=== PATIENT | female | born 1960 | race Caucasian/White ===

== ENCOUNTER 2017-09-03 11:44 | Emergency (ER) | payer MEDICAID ==
[~2017-09-03] VITALS: Ht 165.1 cm; Wt 136.5 kg
[~2017-09-03 11:44] MED LIST: ELID1CRE TOPICAL; LORA2TAB7 PO; MELO15TA20 PO; TRIA0.5O TOPICAL
[2017-09-03 11:53] VITALS: BP 200/88; PULSE 63; RESP 12; TEMP 98.7; O2SAT 99
--- NOTE | 2017-09-03 12:52 | PD ---
HPI Chief Complaint: Injury Time Seen by Provider: 12:09 Travel History International Travel<30 days: No Contact w/Intl Traveler<30days: No Traveled to known affect area: No History of Present Illness HPI 56-year-old female presents to the emergency room for evaluation of median and ulnar nerve deficits that have been worsening over the past 2 weeks, especially over the past week. Symptoms include weakness in the hand, paresthesias in the ulnar distribution, swelling, and pain over various parts of the forearm. She denies any trauma or injury to the right arm. She has pain in various spots of the forearm that is worse when she touches it. Patient has been seeing her chiropractor for this condition and being treated for ulnar nerve compression at the elbow with surrounding exercises. States it doesn't seem to be helping. Patient went to her primary care physician this morning, Dr. Crain, who recommended she come to the emergency room for a test to measure the pressure in her arm. She is status post right mastectomy 2 years ago. PFSH Past Medical History Cancer: Yes (BREAST) Diminished Hearing: No Hypertension: Yes ?: Not Menopausal: Yes : 4 Para: 4 Past Surgical History Tonsillectomy: Yes Other Surgery: Yes (RIGHT MASTECTOMY) Social History Alcohol Use: Yes Tobacco Use: No Substance Use: No Allergies-Medications (Allergen,Severity, Reaction): Coded Allergies: ketoconazole (Unverified Adverse Reaction, Intermediate, 09/03/17) Uncoded Allergies: UNKNOWN NARCOTIC (Allergy, Intermediate, Rash, 08/10/15) Reported Meds & Prescriptions Reported Meds & Active Scripts Active No Active Prescriptions or Reported Medications Review of Systems Except as stated in HPI: all other systems reviewed are Neg Physical Exam Narrative GENERAL: Well-nourished, morbidly obese female in no acute distress. Afebrile. Ambulatory. SKIN: Focused skin assessment warm/dry. No erythema or ecchymosis. Patient has chronic scaling of bilateral hands. HEAD: Normocephalic. EYES: No scleral icterus. No injection or drainage. NECK: Supple, trachea midline. No JVD or lymphadenopathy. CARDIOVASCULAR: Regular rate and rhythm without murmurs, gallops, or rubs. RESPIRATORY: Breath sounds equal bilaterally. No accessory muscle use. MUSCULOSKELETAL: No cyanosis. Mild edema of the right upper extremity. 2+ radial pulse. Radial nerve intact. There is weakness in the median and ulnar distribution; patient has difficulty bringing her thumb and finger together so they're touching and difficulty abducting her fingers. Patient also has decreased sensation in the ulnar distribution. Compartments soft. There is slight coolness in the ulnar distribution. Pressure in the anterior compartment of the right forearm is about 8 mmHg. Pressure in the posterior compartment of the forearm is 2 mmHg. Data Data Last Documented VS Vital Signs Date Time Temp Pulse Resp B/P (MAP) Pulse Ox O2 Delivery O2 Flow Rate FiO2 09/03/17 11:53 98.7 63 12 200/88 (125) 99 Orders Orders Us Arm Venous Doppler (09/03/17 ) Lidocai-Epi 1%-1:100,000 Inj (Xylocaine- (09/03/17 13:15) Splint Or Brace Apply/Monitor (09/03/17 15:46) Ed Discharge Order (09/03/17 15:47) MDM Medical Decision Making Medical Screen Exam Complete: Yes Emergency Medical Condition: Yes Medical Record Reviewed: Yes Differential Diagnosis Compartment syndrome, lymphedema, DVT, nerve palsy Narrative Course 56-year-old female presents to the emergency room for evaluation of nonspecific right upper extremity pain, ulnar nerve paresthesias, right upper extremity edema, and right hand weakness for the past 2 weeks that has especially worsened over the past week. Patient denies any trauma or injury to the arm. She has history of right breast mastectomy 2 years ago. Patient was referred here by her primary care physician with concerns for compartment syndrome given her symptoms. Physical exam is reassuring. No cyanosis. Mild edema of the right upper extremity. 2+ radial pulse. Radial nerve intact. There is weakness in the median and ulnar distribution; patient has difficulty bringing her thumb and finger together so they're touching and difficulty abducting her fingers. Patient also has decreased sensation in the ulnar distribution. Compartments soft. There is slight coolness in the ulnar distribution. Pressure in the anterior compartment of the right forearm is about 8 mmHg. Pressure in the posterior compartment of the forearm is 2 mmHg. there is no clinical concern for compartment syndrome. Ultrasound is negative for DVT. No emergent indications for admission or consultation at this time. 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 She will need outpatient follow-up with hand surgeon or MRI of her neck or arm. I spoke to patient's PCP , Dr. Crain, who agrees with plan. Patient will follow-up next week or return sooner for worsening symptoms. Diagnosis Primary Impression: Ulnar nerve abnormality Qualified Codes: G56.21 - Lesion of ulnar nerve, right upper limb Referrals: Eduin Crain MD R2 Additional Instructions: Rest and drink plenty of fluids. Follow-up with a primary care physician. Return to the emergency room for worsening symptoms. Scripts No Active Prescriptions or Reported Meds Disposition: 01 DISCHARGE HOME Condition: Stable Ludy Turcios Sep 03, 2017 12:51
[2017-09-03] MEDS ORDERED: LIDOCAINE 1%/EPINEPHrine 1:100,000 SOLN 20 ML VIAL INFIL ONE (13:15)
--- NOTE | 2017-09-03 14:17 | RADRPT ---
EXAM DATE/TIME: 09/03/2017 13:24 [facility] COMPARISON: No previous studies available for comparison. INDICATIONS : Right arm swelling. MEDICAL HISTORY : Hypertension. Breast cancer. SURGICAL HISTORY : Tonsillectomy. Back surgery. Right mastectomy. ENCOUNTER: Initial ACUITY: 4 - 6 days PAIN SCORE: 4/10 LOCATION: Right arm. FINDINGS: There is spontaneous flow documented in the brachial, basilic, cephalic, axillary, and subclavian vei ns. The vessels are compressible and augmentation response is documented. No filling defects are se en. The flow is phasic with respiration. Direction of flow in the jugular vein is caudal. CONCLUSION: Negative for deep venous thrombosis. Jovan Kasper MD FACR on September 03, 2017 at 14:15 Board Certified Radiologist. This report was verified electronically.
[2017-09-03 16:26] VITALS: BP 166/75
[2017-09-04] MEDS ORDERED: TRIA0.5O TOPICAL (09:42)
[2017-09-04] MEDS ORDERED: ELID1CRE TOPICAL (09:42)
== END 2017-09-03 16:27 | disposition home or self-care (01) ==
LOC: NEPD 11:44
DX: G56.21 Lesion of ulnar nerve, right upper limb (principal); M79.89 Other specified soft tissue disorders; E66.01 Morbid (severe) obesity due to excess calories; I10 Essential (primary) hypertension; Z88.8 Allergy status to other drugs, medicaments and biological substances
CPT/HCPCS: 93971; 99284; L3908

== ENCOUNTER 2018-08-09 17:14 | Inpatient (IN) ==
[2018-08-09] MEDS ORDERED: Sod Chloride 0.9% Inj 1,000 ML IV.CONT SCH (18:15)
--- NOTE | 2018-08-09 18:26 | ED ---
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 Patient was brought to emergency room and triaged for dizziness. I came to the room to see patient at 6 PM, patient is unable to talk, has expressive aphasia. Following commands, moving both legs and left arm, no obvious weakness in his extremities except chronic weakness in his right arm. No facial droop noted. Systolic blood pressure is 178. Case discussed with neurologist, TPA status is unclear due to possible brain tumor metastasis. MD complaint: Reports dizziness Related Data Previous Rx's Medication Instructions Recorded dexamethasone [Decadron] 2 mg/m2 PO Q8H #21 tab 08/12/18 levetiracetam 500 mg PO BID #28 tab 08/12/18 Allergies Allergy/AdvReac Type Severity Reaction Status Date / Time ketoconazole AdvReac Intermediate Verified 10/25/17 10:58 UNKNOWN NARCOTIC Allergy Intermediate Rash Uncoded 08/10/15 13:02 Review of Systems ROS: all other systems reviewed are negative Neurologic Comments: Expressive aphasia PMFSH Family History Family History Other Family history unknown Social History Social History Substance History: Active Abuse Smoking Status: Former smoker How Often Do You Have a Drink Containing Alcohol: Monthly or less Substance Abuse Detail Marijuana: Substance Use Status: Active Immunization History Tetanus Immunization: Unsure Exam Narrative Exam Narrative: GENERAL: 57-year-old female with expressive aphasia SKIN: Focused skin assessment warm/dry. HEAD: Atraumatic. Normocephalic. EYES: Pupils equal and round. No scleral icterus. No injection or drainage. ENT: No nasal bleeding or discharge. Mucous membranes pink and moist. NECK: Trachea midline. No JVD. CARDIOVASCULAR: Regular rate and rhythm. No murmur appreciated. RESPIRATORY: No accessory muscle use. Clear to auscultation. Breath sounds equal bilaterally. GASTROINTESTINAL: Abdomen soft, non-tender, nondistended. Hepatic and splenic margins not palpable. MUSCULOSKELETAL: No obvious deformities. No clubbing. No cyanosis. No edema. NEUROLOGICAL: Awake and alert. Chronic right arm weakness due to brachial cancer, no weakness in left arm, bilateral legs. Patient has expressive aphasia. PSYCHIATRIC: Appropriate mood and affect; insight and judgment normal. Procedures Intubation Time Out Performed: Yes Sedative: etomidate Mg Given: 30 Paralytic: succinylcholine Mg Given: 300 Laryngoscope: Osman ET Tube Size: 7.5 ET Tube Uncuffed: Yes Tube Secured Depth (cm): 24 Tube Placement Confirmation: visualized tube passing through cords and equal breath sounds bilaterally Patient Tolerated Procedure: well Intubation Complications: none Course Initial Documented Vital Signs Pulse Rate 85 08/09/18 17:27 Respiratory Rate 18 08/09/18 17:27 Blood Pressure 172/77 H 08/09/18 17:27 Pulse Oximetry 95 08/09/18 17:27 Last Documented Vital Signs Temperature 98 F 08/12/18 16:00 Pulse Rate 73 08/12/18 17:29 Respiratory Rate 16 08/12/18 17:29 Blood Pressure 151/81 H 08/12/18 16:00 Pulse Oximetry 99 08/12/18 16:00 Critical Care Time Critical Care Time: Yes Total Critical Care Time: 60 Attestation: Aggregate critical care time was 60 minutes. Time to perform other separately billable procedures was not included in the critical care time. My time did not include minutes spent treating any other patients simultaneously or on activities that did not directly contribute to the patient's treatment. The services I provided to this patient were to treat and/or prevent clinically significant deterioration that could result in: Respiratory failure, intubation, ventilator management I provided critical care services requiring my management, as noted below: Chart data review, documentation time, medication orders and management, vital sign assessments/reviewing monitor data, ordering and reviewing lab tests, ordering and interpreting/reviewing x-rays and diagnostic studies, care of the patient and discussion of the patient with the admitting physicians. Sign Out Sign Out Data: Patient Sign Out occurred on 08/09/18 at 19:44. Patient's care was discussed, and care was transferred from Joshua Lynch DO to [place] Gaytan. Sign Out Comment: Patient is 57-year-old female with history of brachial plexus tumor presented to emergency room with expressive aphasia, was diagnosed with brain tumor as per CAT scan. Patient had seizure episode in the emergency room , treated with Ativan and Keppra. Patient is postictal. Blood work results are pending, Case endorsed to oncoming physician for further evaluation and treatment. Last updated by Joshua Lynch DO at 08/09/18 19:22 Post-Handoff Eval: Patient was signed out to me by the previous ER physician. My understanding is that patient was last seen normal by her family members at 3:30 PM today. Then she started complaining of sudden onset dizziness and speech problems. She was having trouble speaking most of the words. When she got to the emergency room where she was brought in by her significant other and her son she was able to communicate a few words but definitely not her baseline. Based on her symptoms a stroke alert was called but patient started having generalized tonic-clonic seizures soon after arrival. She received Ativan which stopped the seizures. She has been extremely lethargic since then with GCS less than 8. CT scan of the brain was read by the radiologist as a 2.5 cm mass with surrounding vasogenic edema. Given patient's extremely lethargic state and at risk for aspiration due to poor control of her airway I decided to intubate the patient. I discussed with her significant other and her son regarding this. I also updated them about the CAT scan results. Intubation was performed by me and was successful. Please refer to my procedure note. I looked at the blood test results so far and the look to be within normal limits. I discussed the case with Dr. Izquierdo from neurosurgery who recommended an MRI of the brain with and without contrast. Patient is also getting a gram of Keppra loading. I discussed the case with Dr. Ashraf from intensive care unit who will take the patient. Medical Decision Making ALEYDA Attestation ALEYDA supervised visit: Yes MDM Narrative Medical decision making narrative: Patient is 57-year-old female with new expressive aphasia, code stroke called, blood work results CAT scan results are pending. Patient has new brain tumor, not a candidate for TPA treatment. Patient has seizure episode in the emergency room, Ativan given she is postictal. Case will be endorsed to oncoming physician for further evaluation and treatment. Medical Screen Exam Complete: Yes Emergency Medical Condition: Yes Lab Data Result diagrams: 08/10/18 05:50 08/10/18 05:50 Lab Results 08/09/18 08/09/18 08/09/18 Range/Units 18:12 18:12 18:12 WBC 7.1 (4.0-11.0) th/mm3 RBC 4.62 (4.00-5.30) mil/mm3 Hgb 14.5 (11.6-15.3) gm/dL POC Hgb (Calc) 17.0 H (11.6-15.3) g/dL Hct 42.9 (35.0-46.0) % POC Hct 50.0 H (35-46.0) % MCV 92.8 (80.0-100.0) fL MCH 31.4 (27.0-34.0) pg MCHC 33.9 (32.0-36.0) % RDW 13.7 (11.6-17.2) % Plt Count 157 (150-450) th/mm3 MPV 9.4 (7.0-11.0) fL Neut % (Auto) 65.1 (16.0-70.0) % Lymph % (Auto) 27.0 (9.0-44.0) % Mclean % (Auto) 6.8 (0.0-8.0) % Eos % (Auto) 0.8 (0.0-4.0) % Baso % (Auto) 0.3 (0.0-2.0) % Neut # (Auto) 4.6 (1.8-7.7) th/mm3 Lymph # (Auto) 1.9 (1.0-4.8) th/mm3 Mclean # (Auto) 0.5 (0.0-0.9) th/mm3 Eos # (Auto) 0.1 (0.0-0.4) th/mm3 Baso # (Auto) 0.0 (0.0-0.2) th/mm3 WBC Differential . Differential Comment Auto diff final ESR (0-30) mm/hr PT 10.4 (9.8-11.6) sec INR 1.0 Ratio APTT 25.9 (23.4-31.7) sec Fibrinogen 292 (227-377) mg/dL Puncture Site Patient Temperature O2 Saturation (90-100) % ABG pH (7.380-7.420) ABG pCO2 (38-42) mmHg ABG pO2 (61-120) mmHg ABG HCO3 (22-26) mmol/L ABG O2 Content (12.0-20.0) Vol % ABG Base Excess (-2-2) mmol/L ABG Methemoglobin (0-2) % Tashi Test Hemoglobin (12.0-16.0) G/DL Carboxyhemoglobin (0-4) % O2 Delivery Device Vent Setting Inspired O2 % Critical Value POC Sodium 143 (137-144) mmol/L Sodium (136-145) meq/L POC Potassium 3.3 L (3.6-5.0) mmol/L Potassium (3.5-5.1) meq/L POC Chloride 99 L (102-111) mmol/L Chloride (98-107) meq/L Carbon Dioxide (21.0-32.0) meq/L Anion Gap (5-15) meq/L POC BUN 11 (5-21) mg/dL BUN (7-18) mg/dL Creatinine (0.50-1.00) mg/dL POC Creatinine 0.9 (0.6-1.3) mg/dL Estimated GFR (>89) mL/min POC Glucose 136 H (68-110) mg/dL Random Glucose (74-106) mg/dL Lactic Acid (0.4-2.0) mmol/L Calcium (8.5-10.1) mg/dL Phosphorus (2.5-4.9) mg/dL Magnesium (1.5-2.5) mg/dL Total Bilirubin (0.2-1.0) mg/dL AST (15-37) U/L ALT (10-53) U/L Alkaline Phosphatase (45-117) U/L Total Creatine Kinase 120 (26-192) U/L CK-MB (CK-2) (0.5-3.6) ng/mL CK-MB (CK-2) % (0.0-4.0) % Troponin I Less than 0.02 L (0.02-0.05) ng/mL C-Reactive Protein (0.00-0.30) mg/dL Total Protein (6.4-8.2) g/dL Albumin (3.4-5.0) g/dL Beta HCG, Quant 4 (0-5) mIU/mL Nasal Screen MRSA (PCR) Blood Type Antibody Screen 08/09/18 08/09/18 08/09/18 Range/Units 18:12 18:12 18:31 WBC (4.0-11.0) th/mm3 RBC (4.00-5.30) mil/mm3 Hgb (11.6-15.3) gm/dL POC Hgb (Calc) (11.6-15.3) g/dL Hct (35.0-46.0) % POC Hct (35-46.0) % MCV (80.0-100.0) fL MCH (27.0-34.0) pg MCHC (32.0-36.0) % RDW (11.6-17.2) % Plt Count (150-450) th/mm3 MPV (7.0-11.0) fL Neut % (Auto) (16.0-70.0) % Lymph % (Auto) (9.0-44.0) % Mclean % (Auto) (0.0-8.0) % Eos % (Auto) (0.0-4.0) % Baso % (Auto) (0.0-2.0) % Neut # (Auto) (1.8-7.7) th/mm3 Lymph # (Auto) (1.0-4.8) th/mm3 Mclean # (Auto) (0.0-0.9) th/mm3 Eos # (Auto) (0.0-0.4) th/mm3 Baso # (Auto) (0.0-0.2) th/mm3 WBC Differential Differential Comment ESR 12 (0-30) mm/hr PT (9.8-11.6) sec INR Ratio APTT (23.4-31.7) sec Fibrinogen (227-377) mg/dL Puncture Site Patient Temperature O2 Saturation (90-100) % ABG pH (7.380-7.420) ABG pCO2 (38-42) mmHg ABG pO2 (61-120) mmHg ABG HCO3 (22-26) mmol/L ABG O2 Content (12.0-20.0) Vol % ABG Base Excess (-2-2) mmol/L ABG Methemoglobin (0-2) % Tashi Test Hemoglobin (12.0-16.0) G/DL Carboxyhemoglobin (0-4) % O2 Delivery Device Vent Setting Inspired O2 % Critical Value POC Sodium (137-144) mmol/L Sodium (136-145) meq/L POC Potassium (3.6-5.0) mmol/L Potassium (3.5-5.1) meq/L POC Chloride (102-111) mmol/L Chloride (98-107) meq/L Carbon Dioxide (21.0-32.0) meq/L Anion Gap (5-15) meq/L POC BUN (5-21) mg/dL BUN (7-18) mg/dL Creatinine (0.50-1.00) mg/dL POC Creatinine (0.6-1.3) mg/dL Estimated GFR (>89) mL/min POC Glucose (68-110) mg/dL Random Glucose (74-106) mg/dL Lactic Acid (0.4-2.0) mmol/L Calcium (8.5-10.1) mg/dL Phosphorus (2.5-4.9) mg/dL Magnesium (1.5-2.5) mg/dL Total Bilirubin (0.2-1.0) mg/dL AST (15-37) U/L ALT (10-53) U/L Alkaline Phosphatase (45-117) U/L Total Creatine Kinase (26-192) U/L CK-MB (CK-2) (0.5-3.6) ng/mL CK-MB (CK-2) % (0.0-4.0) % Troponin I (0.02-0.05) ng/mL C-Reactive Protein Less than 0.29 (0.00-0.30) mg/dL Total Protein (6.4-8.2) g/dL Albumin (3.4-5.0) g/dL Beta HCG, Quant (0-5) mIU/mL Nasal Screen MRSA (PCR) Blood Type O Negative Antibody Screen Negative 08/09/18 08/10/18 08/10/18 Range/Units 20:14 00:10 01:21 WBC (4.0-11.0) th/mm3 RBC (4.00-5.30) mil/mm3 Hgb (11.6-15.3) gm/dL POC Hgb (Calc) (11.6-15.3) g/dL Hct (35.0-46.0) % POC Hct (35-46.0) % MCV (80.0-100.0) fL MCH (27.0-34.0) pg MCHC (32.0-36.0) % RDW (11.6-17.2) % Plt Count (150-450) th/mm3 MPV (7.0-11.0) fL Neut % (Auto) (16.0-70.0) % Lymph % (Auto) (9.0-44.0) % Mclean % (Auto) (0.0-8.0) % Eos % (Auto) (0.0-4.0) % Baso % (Auto) (0.0-2.0) % Neut # (Auto) (1.8-7.7) th/mm3 Lymph # (Auto) (1.0-4.8) th/mm3 Mclean # (Auto) (0.0-0.9) th/mm3 Eos # (Auto) (0.0-0.4) th/mm3 Baso # (Auto) (0.0-0.2) th/mm3 WBC Differential Differential Comment ESR (0-30) mm/hr PT (9.8-11.6) sec INR Ratio APTT (23.4-31.7) sec Fibrinogen (227-377) mg/dL Puncture Site Right radial Patient Temperature 98.6 O2 Saturation 98 (90-100) % ABG pH 7.30 L (7.380-7.420) ABG pCO2 53 H* (38-42) mmHg ABG pO2 201 H (61-120) mmHg ABG HCO3 26 (22-26) mmol/L ABG O2 Content 20.3 H (12.0-20.0) Vol % ABG Base Excess -0.1 (-2-2) mmol/L ABG Methemoglobin 0.7 (0-2) % Tashi Test Present Hemoglobin 14.5 (12.0-16.0) G/DL Carboxyhemoglobin 0.8 (0-4) % O2 Delivery Device Ventilator Vent Setting Prvc / ac / Inspired O2 100 % Critical Value Yes POC Sodium (137-144) mmol/L Sodium (136-145) meq/L POC Potassium (3.6-5.0) mmol/L Potassium (3.5-5.1) meq/L POC Chloride (102-111) mmol/L Chloride (98-107) meq/L Carbon Dioxide (21.0-32.0) meq/L Anion Gap (5-15) meq/L POC BUN (5-21) mg/dL BUN (7-18) mg/dL Creatinine (0.50-1.00) mg/dL POC Creatinine (0.6-1.3) mg/dL Estimated GFR (>89) mL/min POC Glucose 95 (68-110) mg/dL Random Glucose (74-106) mg/dL Lactic Acid (0.4-2.0) mmol/L Calcium (8.5-10.1) mg/dL Phosphorus (2.5-4.9) mg/dL Magnesium (1.5-2.5) mg/dL Total Bilirubin (0.2-1.0) mg/dL AST (15-37) U/L ALT (10-53) U/L Alkaline Phosphatase (45-117) U/L Total Creatine Kinase (26-192) U/L CK-MB (CK-2) (0.5-3.6) ng/mL CK-MB (CK-2) % (0.0-4.0) % Troponin I (0.02-0.05) ng/mL C-Reactive Protein (0.00-0.30) mg/dL Total Protein (6.4-8.2) g/dL Albumin (3.4-5.0) g/dL Beta HCG, Quant (0-5) mIU/mL Nasal Screen MRSA (PCR) Cancelled Blood Type Antibody Screen 08/10/18 08/10/18 08/10/18 Range/Units 03:30 04:15 05:50 WBC 9.9 (4.0-11.0) th/mm3 RBC 4.35 (4.00-5.30) mil/mm3 Hgb 13.9 (11.6-15.3) gm/dL POC Hgb (Calc) (11.6-15.3) g/dL Hct 40.6 (35.0-46.0) % POC Hct (35-46.0) % MCV 93.4 (80.0-100.0) fL MCH 31.9 (27.0-34.0) pg MCHC 34.2 (32.0-36.0) % RDW 13.8 (11.6-17.2) % Plt Count 156 (150-450) th/mm3 MPV 8.6 (7.0-11.0) fL Neut % (Auto) 78.6 H (16.0-70.0) % Lymph % (Auto) 14.1 (9.0-44.0) % Mclean % (Auto) 6.7 (0.0-8.0) % Eos % (Auto) 0.1 (0.0-4.0) % Baso % (Auto) 0.5 (0.0-2.0) % Neut # (Auto) 7.8 H (1.8-7.7) th/mm3 Lymph # (Auto) 1.4 (1.0-4.8) th/mm3 Mclean # (Auto) 0.7 (0.0-0.9) th/mm3 Eos # (Auto) 0.0 (0.0-0.4) th/mm3 Baso # (Auto) 0.1 (0.0-0.2) th/mm3 WBC Differential . Differential Comment Auto diff final ESR (0-30) mm/hr PT (9.8-11.6) sec INR Ratio APTT (23.4-31.7) sec Fibrinogen (227-377) mg/dL Puncture Site Right radial Patient Temperature 98.6 O2 Saturation 97 (90-100) % ABG pH 7.49 H (7.380-7.420) ABG pCO2 37 L (38-42) mmHg ABG pO2 172 H (61-120) mmHg ABG HCO3 28 H (22-26) mmol/L ABG O2 Content 19.7 (12.0-20.0) Vol % ABG Base Excess 4.6 H (-2-2) mmol/L ABG Methemoglobin 1.1 (0-2) % Tashi Test Present Hemoglobin 14.2 (12.0-16.0) G/DL Carboxyhemoglobin 1.1 (0-4) % O2 Delivery Device Ventilator Vent Setting [id number] Inspired O2 60 % Critical Value No POC Sodium (137-144) mmol/L Sodium (136-145) meq/L POC Potassium (3.6-5.0) mmol/L Potassium (3.5-5.1) meq/L POC Chloride (102-111) mmol/L Chloride (98-107) meq/L Carbon Dioxide (21.0-32.0) meq/L Anion Gap (5-15) meq/L POC BUN (5-21) mg/dL BUN (7-18) mg/dL Creatinine (0.50-1.00) mg/dL POC Creatinine (0.6-1.3) mg/dL Estimated GFR (>89) mL/min POC Glucose (68-110) mg/dL Random Glucose (74-106) mg/dL Lactic Acid (0.4-2.0) mmol/L Calcium (8.5-10.1) mg/dL Phosphorus (2.5-4.9) mg/dL Magnesium (1.5-2.5) mg/dL Total Bilirubin (0.2-1.0) mg/dL AST (15-37) U/L ALT (10-53) U/L Alkaline Phosphatase (45-117) U/L Total Creatine Kinase (26-192) U/L CK-MB (CK-2) (0.5-3.6) ng/mL CK-MB (CK-2) % (0.0-4.0) % Troponin I (0.02-0.05) ng/mL C-Reactive Protein (0.00-0.30) mg/dL Total Protein (6.4-8.2) g/dL Albumin (3.4-5.0) g/dL Beta HCG, Quant (0-5) mIU/mL Nasal Screen MRSA (PCR) Not detected Blood Type Antibody Screen 08/10/18 08/10/18 08/10/18 Range/Units 05:50 05:50 05:50 WBC (4.0-11.0) th/mm3 RBC (4.00-5.30) mil/mm3 Hgb (11.6-15.3) gm/dL POC Hgb (Calc) (11.6-15.3) g/dL Hct (35.0-46.0) % POC Hct (35-46.0) % MCV (80.0-100.0) fL MCH (27.0-34.0) pg MCHC (32.0-36.0) % RDW (11.6-17.2) % Plt Count (150-450) th/mm3 MPV (7.0-11.0) fL Neut % (Auto) (16.0-70.0) % Lymph % (Auto) (9.0-44.0) % Mclean % (Auto) (0.0-8.0) % Eos % (Auto) (0.0-4.0) % Baso % (Auto) (0.0-2.0) % Neut # (Auto) (1.8-7.7) th/mm3 Lymph # (Auto) (1.0-4.8) th/mm3 Mclean # (Auto) (0.0-0.9) th/mm3 Eos # (Auto) (0.0-0.4) th/mm3 Baso # (Auto) (0.0-0.2) th/mm3 WBC Differential Differential Comment ESR (0-30) mm/hr PT 10.7 (9.8-11.6) sec INR 1.1 Ratio APTT 25.4 (23.4-31.7) sec Fibrinogen (227-377) mg/dL Puncture Site Patient Temperature O2 Saturation (90-100) % ABG pH (7.380-7.420) ABG pCO2 (38-42) mmHg ABG pO2 (61-120) mmHg ABG HCO3 (22-26) mmol/L ABG O2 Content (12.0-20.0) Vol % ABG Base Excess (-2-2) mmol/L ABG Methemoglobin (0-2) % Tashi Test Hemoglobin (12.0-16.0) G/DL Carboxyhemoglobin (0-4) % O2 Delivery Device Vent Setting Inspired O2 % Critical Value POC Sodium (137-144) mmol/L Sodium 139 (136-145) meq/L POC Potassium (3.6-5.0) mmol/L Potassium 4.1 (3.5-5.1) meq/L POC Chloride (102-111) mmol/L Chloride 103 (98-107) meq/L Carbon Dioxide 28.8 (21.0-32.0) meq/L Anion Gap 7 (5-15) meq/L POC BUN (5-21) mg/dL BUN 9 (7-18) mg/dL Creatinine 0.79 (0.50-1.00) mg/dL POC Creatinine (0.6-1.3) mg/dL Estimated GFR 74 L (>89) mL/min POC Glucose (68-110) mg/dL Random Glucose 126 H (74-106) mg/dL Lactic Acid 2.5 H (0.4-2.0) mmol/L Calcium 8.7 (8.5-10.1) mg/dL Phosphorus 2.0 L (2.5-4.9) mg/dL Magnesium 1.7 (1.5-2.5) mg/dL Total Bilirubin 0.4 (0.2-1.0) mg/dL AST 57 H (15-37) U/L ALT 42 (10-53) U/L Alkaline Phosphatase 74 (45-117) U/L Total Creatine Kinase 876 H (26-192) U/L CK-MB (CK-2) 5.5 H (0.5-3.6) ng/mL CK-MB (CK-2) % 0.6 (0.0-4.0) % Troponin I (0.02-0.05) ng/mL C-Reactive Protein (0.00-0.30) mg/dL Total Protein 7.3 (6.4-8.2) g/dL Albumin 3.5 (3.4-5.0) g/dL Beta HCG, Quant (0-5) mIU/mL Nasal Screen MRSA (PCR) Blood Type Antibody Screen 08/10/18 08/11/18 08/11/18 Range/Units 13:09 00:39 05:46 WBC (4.0-11.0) th/mm3 RBC (4.00-5.30) mil/mm3 Hgb (11.6-15.3) gm/dL POC Hgb (Calc) (11.6-15.3) g/dL Hct (35.0-46.0) % POC Hct (35-46.0) % MCV (80.0-100.0) fL MCH (27.0-34.0) pg MCHC (32.0-36.0) % RDW (11.6-17.2) % Plt Count (150-450) th/mm3 MPV (7.0-11.0) fL Neut % (Auto) (16.0-70.0) % Lymph % (Auto) (9.0-44.0) % Mclean % (Auto) (0.0-8.0) % Eos % (Auto) (0.0-4.0) % Baso % (Auto) (0.0-2.0) % Neut # (Auto) (1.8-7.7) th/mm3 Lymph # (Auto) (1.0-4.8) th/mm3 Mclean # (Auto) (0.0-0.9) th/mm3 Eos # (Auto) (0.0-0.4) th/mm3 Baso # (Auto) (0.0-0.2) th/mm3 WBC Differential Differential Comment ESR (0-30) mm/hr PT (9.8-11.6) sec INR Ratio APTT (23.4-31.7) sec Fibrinogen (227-377) mg/dL Puncture Site Patient Temperature O2 Saturation (90-100) % ABG pH (7.380-7.420) ABG pCO2 (38-42) mmHg ABG pO2 (61-120) mmHg ABG HCO3 (22-26) mmol/L ABG O2 Content (12.0-20.0) Vol % ABG Base Excess (-2-2) mmol/L ABG Methemoglobin (0-2) % Tashi Test Hemoglobin (12.0-16.0) G/DL Carboxyhemoglobin (0-4) % O2 Delivery Device Vent Setting Inspired O2 % Critical Value POC Sodium (137-144) mmol/L Sodium (136-145) meq/L POC Potassium (3.6-5.0) mmol/L Potassium (3.5-5.1) meq/L POC Chloride (102-111) mmol/L Chloride (98-107) meq/L Carbon Dioxide (21.0-32.0) meq/L Anion Gap (5-15) meq/L POC BUN (5-21) mg/dL BUN (7-18) mg/dL Creatinine (0.50-1.00) mg/dL POC Creatinine (0.6-1.3) mg/dL Estimated GFR (>89) mL/min POC Glucose 111 H 127 H 157 H (68-110) mg/dL Random Glucose (74-106) mg/dL Lactic Acid (0.4-2.0) mmol/L Calcium (8.5-10.1) mg/dL Phosphorus (2.5-4.9) mg/dL Magnesium (1.5-2.5) mg/dL Total Bilirubin (0.2-1.0) mg/dL AST (15-37) U/L ALT (10-53) U/L Alkaline Phosphatase (45-117) U/L Total Creatine Kinase (26-192) U/L CK-MB (CK-2) (0.5-3.6) ng/mL CK-MB (CK-2) % (0.0-4.0) % Troponin I (0.02-0.05) ng/mL C-Reactive Protein (0.00-0.30) mg/dL Total Protein (6.4-8.2) g/dL Albumin (3.4-5.0) g/dL Beta HCG, Quant (0-5) mIU/mL Nasal Screen MRSA (PCR) Blood Type Antibody Screen 08/11/18 08/11/18 08/12/18 Range/Units 11:21 17:18 00:09 WBC (4.0-11.0) th/mm3 RBC (4.00-5.30) mil/mm3 Hgb (11.6-15.3) gm/dL POC Hgb (Calc) (11.6-15.3) g/dL Hct (35.0-46.0) % POC Hct (35-46.0) % MCV (80.0-100.0) fL MCH (27.0-34.0) pg MCHC (32.0-36.0) % RDW (11.6-17.2) % Plt Count (150-450) th/mm3 MPV (7.0-11.0) fL Neut % (Auto) (16.0-70.0) % Lymph % (Auto) (9.0-44.0) % Mclean % (Auto) (0.0-8.0) % Eos % (Auto) (0.0-4.0) % Baso % (Auto) (0.0-2.0) % Neut # (Auto) (1.8-7.7) th/mm3 Lymph # (Auto) (1.0-4.8) th/mm3 Mclean # (Auto) (0.0-0.9) th/mm3 Eos # (Auto) (0.0-0.4) th/mm3 Baso # (Auto) (0.0-0.2) th/mm3 WBC Differential Differential Comment ESR (0-30) mm/hr PT (9.8-11.6) sec INR Ratio APTT (23.4-31.7) sec Fibrinogen (227-377) mg/dL Puncture Site Patient Temperature O2 Saturation (90-100) % ABG pH (7.380-7.420) ABG pCO2 (38-42) mmHg ABG pO2 (61-120) mmHg ABG HCO3 (22-26) mmol/L ABG O2 Content (12.0-20.0) Vol % ABG Base Excess (-2-2) mmol/L ABG Methemoglobin (0-2) % Tashi Test Hemoglobin (12.0-16.0) G/DL Carboxyhemoglobin (0-4) % O2 Delivery Device Vent Setting Inspired O2 % Critical Value POC Sodium (137-144) mmol/L Sodium (136-145) meq/L POC Potassium (3.6-5.0) mmol/L Potassium (3.5-5.1) meq/L POC Chloride (102-111) mmol/L Chloride (98-107) meq/L Carbon Dioxide (21.0-32.0) meq/L Anion Gap (5-15) meq/L POC BUN (5-21) mg/dL BUN (7-18) mg/dL Creatinine (0.50-1.00) mg/dL POC Creatinine (0.6-1.3) mg/dL Estimated GFR (>89) mL/min POC Glucose 192 H 162 H 126 H (68-110) mg/dL Random Glucose (74-106) mg/dL Lactic Acid (0.4-2.0) mmol/L Calcium (8.5-10.1) mg/dL Phosphorus (2.5-4.9) mg/dL Magnesium (1.5-2.5) mg/dL Total Bilirubin (0.2-1.0) mg/dL AST (15-37) U/L ALT (10-53) U/L Alkaline Phosphatase (45-117) U/L Total Creatine Kinase (26-192) U/L CK-MB (CK-2) (0.5-3.6) ng/mL CK-MB (CK-2) % (0.0-4.0) % Troponin I (0.02-0.05) ng/mL C-Reactive Protein (0.00-0.30) mg/dL Total Protein (6.4-8.2) g/dL Albumin (3.4-5.0) g/dL Beta HCG, Quant (0-5) mIU/mL Nasal Screen MRSA (PCR) Blood Type Antibody Screen 08/12/18 08/12/18 08/12/18 Range/Units 05:26 13:14 18:09 WBC (4.0-11.0) th/mm3 RBC (4.00-5.30) mil/mm3 Hgb (11.6-15.3) gm/dL POC Hgb (Calc) (11.6-15.3) g/dL Hct (35.0-46.0) % POC Hct (35-46.0) % MCV (80.0-100.0) fL MCH (27.0-34.0) pg MCHC (32.0-36.0) % RDW (11.6-17.2) % Plt Count (150-450) th/mm3 MPV (7.0-11.0) fL Neut % (Auto) (16.0-70.0) % Lymph % (Auto) (9.0-44.0) % Mclean % (Auto) (0.0-8.0) % Eos % (Auto) (0.0-4.0) % Baso % (Auto) (0.0-2.0) % Neut # (Auto) (1.8-7.7) th/mm3 Lymph # (Auto) (1.0-4.8) th/mm3 Mclean # (Auto) (0.0-0.9) th/mm3 Eos # (Auto) (0.0-0.4) th/mm3 Baso # (Auto) (0.0-0.2) th/mm3 WBC Differential Differential Comment ESR (0-30) mm/hr PT (9.8-11.6) sec INR Ratio APTT (23.4-31.7) sec Fibrinogen (227-377) mg/dL Puncture Site Patient Temperature O2 Saturation (90-100) % ABG pH (7.380-7.420) ABG pCO2 (38-42) mmHg ABG pO2 (61-120) mmHg ABG HCO3 (22-26) mmol/L ABG O2 Content (12.0-20.0) Vol % ABG Base Excess (-2-2) mmol/L ABG Methemoglobin (0-2) % Tashi Test Hemoglobin (12.0-16.0) G/DL Carboxyhemoglobin (0-4) % O2 Delivery Device Vent Setting Inspired O2 % Critical Value POC Sodium (137-144) mmol/L Sodium (136-145) meq/L POC Potassium (3.6-5.0) mmol/L Potassium (3.5-5.1) meq/L POC Chloride (102-111) mmol/L Chloride (98-107) meq/L Carbon Dioxide (21.0-32.0) meq/L Anion Gap (5-15) meq/L POC BUN (5-21) mg/dL BUN (7-18) mg/dL Creatinine (0.50-1.00) mg/dL POC Creatinine (0.6-1.3) mg/dL Estimated GFR (>89) mL/min POC Glucose 135 H 140 H 185 H (68-110) mg/dL Random Glucose (74-106) mg/dL Lactic Acid (0.4-2.0) mmol/L Calcium (8.5-10.1) mg/dL Phosphorus (2.5-4.9) mg/dL Magnesium (1.5-2.5) mg/dL Total Bilirubin (0.2-1.0) mg/dL AST (15-37) U/L ALT (10-53) U/L Alkaline Phosphatase (45-117) U/L Total Creatine Kinase (26-192) U/L CK-MB (CK-2) (0.5-3.6) ng/mL CK-MB (CK-2) % (0.0-4.0) % Troponin I (0.02-0.05) ng/mL C-Reactive Protein (0.00-0.30) mg/dL Total Protein (6.4-8.2) g/dL Albumin (3.4-5.0) g/dL Beta HCG, Quant (0-5) mIU/mL Nasal Screen MRSA (PCR) Blood Type Antibody Screen Imaging Data Radiologist's impression: Head CT 08/09/18 18:04 CONCLUSION: 1. 2.4 cm mass in left parietal lobe with surrounding vasogenic edema. MRI brain with and without contrast is recommended. Report was called by [ Dr. Story to Dr. Lynch at 6:40 PM] Chest X-Ray 08/09/18 18:05 CONCLUSION: Basilar atelectasis. Cardiomegaly. Surgical clips right axillary region. Head CTA 08/09/18 18:05 CONCLUSION: 1. Negative CTA Head. Report was called by [ Dr Story to Dr Samayoa at 646pm] Neck CTA 08/09/18 18:05 CONCLUSION: 1. Negative CTA Carotid. Chest X-Ray 08/09/18 19:27 CONCLUSION: Good placement of the ET tube. Cardiomegaly. Diffuse increased interstitial markings likely related to diffuse processes such as edema. Further increased density at the left base representing either alveolar consolidation, atelectasis and/or left effusion. Abdomen/Pelvis CT 08/09/18 19:36 CONCLUSION: 1. Stable exam appearance. 2. Nonspecific sclerotic focus involving L3 vertebral body Chest CT 08/09/18 19:36 CONCLUSION: Consolidative changes in the posterior lung bases. Head MRI 08/09/18 19:36 CONCLUSION: At least 3 enhancing brain lesions as above. Discharge Plan Discharge Disposition Patient Disposition: 30 Still Patient Discharge Condition Condition: Good Discharge Order Discharge Orders: Discharge Order (Routine); Ordered 08/12/18 Ordered By: Judy Vang Physicians Team ED Provider: China Gaytan Primary Care Provider: UNKNOWN, Attending Provider: Alex Thompson Other Providers: Stephanie Samayoa ; Allie Arredondo ; Cirilo Agudelo ; [facility],Insurance ; Dat Izquierdo Status ED Status: Left Department Discharge Information Discharge Date/Time: 08/10/18 00:48
[2018-08-09] MEDS ORDERED: levETIRAcetam 1000mg/100mL Inj 100 ML IV.SIG ONE ×2 (18:40→19:43)
--- NOTE | 2018-08-09 18:43 | CT ---
EXAM DATE: 08/09/2018 6:28 PM EDT AGE/SEX: 57 years / Female INDICATIONS: STROKE ALERT. Aphasia. Dizziness. CLINICAL DATA: This is the patient's initial encounter. Patient reports that signs and symptoms have been present for 1 day and indicates a pain score of 0/10. MEDICAL/SURGICAL HISTORY: Carcinoma, breast. None. RADIATION DOSE: 40.89 CTDI (mGy) COMPARISON: . TECHNIQUE: CT of the head without contrast. Using automated exposure control and adjustment of the mA and/or kV according to patient size, radiation dose was kept as low as reasonably achievable to ob tain optimal diagnostic quality images. DICOM format image data is available electronically for revi ew and comparison. FINDINGS: There is a suspected 2.4 cm mass in the left parietal lobe medially with surrounding edema and mild m ass effect. No hemorrhage identified. No definite evidence for recent infarct. No significant midline shift. Remainder of exam unremarkable. CONCLUSION: 1. 2.4 cm mass in left parietal lobe with surrounding vasogenic edema. MRI brain with and without co ntrast is recommended. Report was called by [ Dr. Story to Dr. Lynch at 6:40 PM] Electronically signed by: Candelario Story MD 08/09/2018 6:42 PM EDT
--- NOTE | 2018-08-09 18:48 | CT ---
EXAM DATE: 08/09/2018 6:36 PM EDT AGE/SEX: 57 years / Female INDICATIONS: STROKE ALERT. Aphasia. Dizziness. CLINICAL DATA: This is the patient's initial encounter. Patient reports that signs and symptoms have been present for 1 day and indicates a pain score of 0/10. MEDICAL/SURGICAL HISTORY: Carcinoma, breast. . Mastectomy. RADIATION DOSE: 28.74 CTDI (mGy) ; Combined studies [place] [facility] [place]. . TECHNIQUE: Volumetric scanning was performed using a multi-row detector CT scanner during bolus infu reed of 99 ml Visipaque 320 (iodixanol) nonionic water-soluble contrast as a single exam dose. The data was post processed with a variety of visualization algorithms including full volume maximum int ensity projection, multi-planar sliding thin slab reformation, curved planar reformation, and surface rendering techniques. Using automated exposure control and adjustment of the mA and/or kV according to patient size, radiation dose was kept as low as reasonably achievable to obtain optimal diagnosti c quality images. DICOM format image data is available electronically for review and comparison. FINDINGS: There is excellent visualization of the major intracranial arteries out to the second-order branch ve ssels. There is no evidence for aneurysm, vessel truncation or stenosis, and no evidence for vascula r malformation. CONCLUSION: 1. Negative CTA Head. Report was called by [ Dr Story to Dr Samayoa at 646pm] Electronically signed by: Candelario Story MD 08/09/2018 6:47 PM EDT
[2018-08-09] MEDS ORDERED: Etomidate Inj 40 MG/20 ML Vial IV.PUSH ONE (19:04)
[2018-08-09] MEDS ORDERED: Succinylcholine Inj 200 MG/10 ML Vial ONE ×2 (19:04→19:05)
--- NOTE | 2018-08-09 19:09 | CT ---
EXAM DATE: 08/09/2018 6:53 PM EDT AGE/SEX: 57 years / Female INDICATIONS: STROKE ALERT. Aphasia. Dizziness. CLINICAL DATA: This is the patient's initial encounter. Patient reports that signs and symptoms have been present for 1 day and indicates a pain score of 0/10. MEDICAL/SURGICAL HISTORY: Carcinoma, breast. . Mastectomy. RADIATION DOSE: 28.74 CTDI (mGy) ; Combined studies COMPARISON: No prior exams available for comparison. TECHNIQUE: Volumetric scanning was performed using a multirow detector CT scanner during bolus infus ion of 99 ml Visipaque 320 (iodixanol) nonionic water-soluble contrast as a single exam dose. The data was postprocessed with a variety of visualization algorithms including full-volume maximum inten sity projection, multiplanar sliding thin-slab reformation, curved-planar reformation, and surface-re ndering techniques. Using automated exposure control and adjustment of the mA and/or kV according to patient size, radiation dose was kept as low as reasonably achievable to obtain optimal diagnostic q uality images. DICOM format image data is available electronically for review and comparison. Percent stenosis is calculated using the diameter of the stenotic region over the diameter of the nor mal distal internal carotid artery. FINDINGS: Great vessel origins are patent. Both common carotid and internal carotid arteries are patent. No sig nificant plaque formation. The vertebral arteries are patent within the neck and the basilar arteries .. No aneurysm or dissection. CONCLUSION: 1. Negative CTA Carotid. Electronically signed by: Candelario Story MD 08/09/2018 7:07 PM EDT
--- NOTE | 2018-08-09 19:09 | XR ---
EXAM DATE: 08/09/2018 6:59 PM EDT AGE/SEX: 57 years / Female INDICATIONS: Stroke alert. CLINICAL DATA: This is the patient's initial encounter. Patient reports that signs and symptoms have been present for 1 day and indicates a pain score of Nonresponsive. MEDICAL/SURGICAL HISTORY: Non-responsive. Non-responsive. COMPARISON: [facility], XR CHEST PA AND LAT, 02/25/2016. . FINDINGS: Heart size mildly enlarged. Basilar atelectasis. No pneumothorax or significant effusion. Surgical cl ips right axilla. CONCLUSION: Basilar atelectasis. Cardiomegaly. Surgical clips right axillary region. Electronically signed by: Candelario Story MD 08/09/2018 7:08 PM EDT
[2018-08-09 19:20] LABS: Baso % (Auto) 0.3 % (0.0-2.0); Eos # (Auto) 0.1 th/mm3 (0.0-0.4); Eos % (Auto) 0.8 % (0.0-4.0); Hematocrit 42.9 % (35.0-46.0); Hemoglobin 14.5 gm/dL (11.6-15.3); Lymph # (Auto) 1.9 th/mm3 (1.0-4.8); Mean Corpuscular HGB Conc 33.9 % (32.0-36.0); Mean Corpuscular Hemoglobin 31.4 pg (27.0-34.0); Mean Corpuscular Volume 92.8 fL (80.0-100.0); Mean Platelet Volume 9.4 fL (7.0-11.0); Mono # (Auto) 0.5 th/mm3 (0.0-0.9); Mono % (Auto) 6.8 % (0.0-8.0); Neut # (Auto) 4.6 th/mm3 (1.8-7.7); Neut % (Auto) 65.1 % (16.0-70.0); Platelet Count 157 th/mm3 (150-450); Red Blood Count 4.62 mil/mm3 (4.00-5.30); Red Cell Distribution Width 13.7 % (11.6-17.2); White Blood Count 7.1 th/mm3 (4.0-11.0)
[2018-08-09 19:24] LABS: Activated Partial Thrombo Time 25.9 sec (23.4-31.7); Prothrombin Time 10.4 sec (9.8-11.6)
[2018-08-09 19:29] LABS: Beta HCG,Quantitative 4 mIU/mL (0-5); Creatine Kinase 120 U/L (26-192)
[2018-08-09] MEDS ORDERED: Etomidate Inj 20 MG/10 ML Ampul IV.PUSH ONE (19:36)
[2018-08-09] MEDS ORDERED: Succinylcholine Inj 100 MG/5 ML Syringe IV.PUSH ONE (19:36)
[2018-08-09] MEDS ORDERED: Propofol 1000 mg/100 ml Inj 1,000 MG/100 ML BOTTLE IV.CONT PRN (19:36)
--- NOTE | 2018-08-09 19:56 | XR ---
EXAM DATE: 08/09/2018 7:52 PM EDT AGE/SEX: 57 years / Female INDICATIONS: Post intubation CLINICAL DATA: This is the patient's initial encounter. Patient reports that signs and symptoms have been present for 1 day and indicates a pain score of Nonresponsive. MEDICAL/SURGICAL HISTORY: Non-responsive. Non-responsive. COMPARISON: [facility] – [place], CHEST 1V SINGLE AP, 08/09/2018. . FINDINGS: The ET tube, NG tube, and left-sided [id number] are well placed. The ET tube tip is 3.5 cm from th e sylvain. The heart size is enlarged. Lungs demonstrate mild increased interstitial markings especial ly centrally. There is further alveolar density seen at the left base with silhouetting the left eb diaphragm. Clips are seen over the right axillary region. CONCLUSION: Good placement of the ET tube. Cardiomegaly. Diffuse increased interstitial markings likely related to diffuse processes such as edema. Further increased density at the left base representing either alveolar consolidation, atelectasis an d/or left effusion. Electronically signed by: Hoang Kang MD 08/09/2018 7:55 PM EDT
[2018-08-09] MEDS ORDERED: Bisacodyl 10 MG Supp RECTAL PRN (20:24)
[2018-08-09] MEDS ORDERED: Acetaminophen 325 MG Tablet PO PRN (20:24)
[2018-08-09] MEDS ORDERED: fentaNYL 10 mcg/mL Premix Drip 2,500 MCG/250 ML BAG IV.SIG PRN (20:24)
[2018-08-09 20:30] LABS: ABG Base Excess -0.1 mmol/L (-2-2); ABG PCO2 53 mmHg (38-42); ABG PO2 201 mmHg (61-120)
--- NOTE | 2018-08-09 20:30 | P.HPCC ---
History of Present Illness Service: Critical Care medicine Primary Care Physician: UNKNOWN Chief Complaint: Seizure/altered mental status History of Present Illness: This is a 57-year-old female. Date of admission 08/09/2018. Past medical history includes breast cancer, right brachial plexus tumor, prior tobaccoism. Patient was less than her normal state of flux 1530 today. At that time, patient was noted to have due to expressive aphasia. She is able to move her left upper and lower extremity but not right upper extremity due to chronic weakness from brachial plexus surgery.. No facial droop noted. Systolic blood pressure is 178. ED, patient had a seizure requiring intubation. CT brain revealed a 2.4 cm left parietal mass. Stroke alert was called prior to this and CT angiogram of the brain and neck was essentially negative. Neurosurgery was consulted. Recommend MRI brain along with CT chest abdomen pelvis for further workup. Loaded with levetiracetam 1 g and dexamethasone 10 mg x1. We are asked to admit. Inpatient Certification: I certify that the inpatient services were ordered in accordance with Medicare regulations governing the order. This includes certification that hospital inpatient services are reasonable and necessary and in the case of services not specified as inpatient-only under 42 CFR 419.22(n), that they are appropriately provided as inpatient services in accordance to with the 2-midnight benchmark under 43 CFR 412.3(e) Estimated Total Length of Stay (Days): 5 Plans for Post Hospital Care: Home Review of Systems unobtainable due to endotracheal tube PMFSH - History History Provided By: Patient, Family Member - Medical History Medical History: Medical History (Last Reviewed 08/10/18 @ 00:26 by Minor Ashraf MD) Breast cancer Chronic pain Diarrhea Paralysis of right upper extremity - Surgical History Surgical History: Surgical History (Last Reviewed 08/10/18 @ 00:26 by Minor Ashraf MD) History of right mastectomy - Family History Family History: Family History (Last Updated 08/10/18 @ 00:26 by Minor Ashraf MD) Other Family history unknown - Tobacco History Smoking Status: Former smoker - Alcohol History How Often Do You Have a Drink Containing Alcohol: Monthly or less - Substance Use History Substance History: Active Abuse - Substance Use Type Marijuana Status: Active - Travel History Recent Travel in the [place] Within the Last 8 Weeks: No Recent Travel Out of the Country Within the Last 8 Weeks: No - Immunization History Tetanus Immunization: Unsure Medications and Allergies Active Medications: Active Medications Acetaminophen (Tylenol) 650 mg PO Q6H PRN PRN Reason: Fever >101f Al Hydroxide/Mg Hydroxide (Milk Of Kirstin Lijanice) 30 ml PO Q12H PRN PRN Reason: Mild Constipation Albuterol (Albuterol Neb (Sky)) 2.5 mg NEB Q2HR NEB PRN PRN Reason: SHORTNESS OF BREATH/WHEEZING Albuterol (Duoneb Neb (Prn)) 1 ampul NEB Q2HR NEB PRN PRN Reason: SHORTNESS OF BREATH Albuterol (Duoneb Neb (Prn)) 1 ampul NEB Q4HR NEB SKY Albuterol (Duoneb Neb (Sky)) 1 ampul NEB Q4HR NEB SKY Bisacodyl (Dulcolax Supp) 10 mg RECTAL DAILY PRN PRN Reason: SEVERE CONSITIPATION Chlorhexidine Gluconate (Peridex 0.12% Oral Kit) 15 ml OROPHARYNG BID@0800, 2000 [facility] Chlorhexidine Gluconate (Chlorhexidine 2% Cloth) 3 pack TOPICAL DAILY@0400 SKY Stop: 08/15/18 03:59 Chlorhexidine Gluconate (Chlorhexidine 2% Cloth) 3 pack TOPICAL DAILY@0400 PRN PRN Reason: Extra cloth needed Stop: 08/15/18 03:59 Sodium Chloride (Ns Inj) 1,000 mls @ 70 mls/hr IV.CONT .[id number] [facility] Last Admin: 08/09/18 18:51 Dose: 70 mls/hr Propofol (Diprivan 1000 Mg/100 Ml Inj) 1,000 mg in 100 mls @ 3.981 mls/hr IV.CONT TITRATE PRN; Protocol PRN Reason: Per Protocol Last Admin: 08/09/18 20:00 Dose: 10 mcg/kg/min, 7.96 mls/hr Fentanyl (Fentanyl 10 Mcg/Ml Premix Drip) 2,500 mcg in 250 mls @ 5 mls/hr IV.SIG TITRATE PRN; Protocol PRN Reason: Per Protocol Sodium Chloride (Ns Inj) 1,000 mls @ 84 mls/hr IV.CONT .[id number] [facility] Propofol (Diprivan 1000 Mg/100 Ml Inj) 1,000 mg in 100 mls @ 3.981 mls/hr IV.CONT TITRATE PRN; Protocol PRN Reason: Per Protocol Lactulose (Lactulose Liq) 30 ml PO DAILY PRN PRN Reason: SEVERE CONSITIPATION Miscellaneous Medication () 1 each OROPHARYNG 0000,0400,1200,1600 SKY Pantoprazole Sodium (Protonix Inj) 40 mg IV.PUSH Q24H SKY Pantoprazole Sodium (Protonix Inj) 40 mg IV.PUSH DAILY SKY Senna/Docusate Sodium (Jen-Colace) 1 tab PO BID SKY Sennosides (Senokot) 17.2 mg PO Q12H PRN PRN Reason: Moderate Constipation Sodium Chloride (Ns Flush) 2 ml IV.FLUSH BID SKY Sodium Chloride (Ns Flush) 2 ml IV.FLUSH PRN PRN PRN Reason: FLUSH AFTER USING IV ACCESS Allergies Allergy/AdvReac Type Severity Reaction Status Date / Time ketoconazole AdvReac Intermediate Verified 10/25/17 10:58 UNKNOWN NARCOTIC Allergy Intermediate Rash Uncoded 08/10/15 13:02 Results - Labs CBC & Chem 7: 08/09/18 18:12 Labs: Short CBC 08/09/18 Range/Units 18:12 WBC 7.1 (4.0-11.0) th/mm3 Hgb 14.5 (11.6-15.3) gm/dL Hct 42.9 (35.0-46.0) % Plt Count 157 (150-450) th/mm3 Cardiac Enzymes 08/09/18 Range/Units 18:12 Total Creatine Kinase 120 (26-192) U/L Troponin I Less than 0.02 L (0.02-0.05) ng/mL - Imaging Impressions Head CT 08/09/18 18:04 CONCLUSION: 1. 2.4 cm mass in left parietal lobe with surrounding vasogenic edema. MRI brain with and without contrast is recommended. Report was called by [ Dr. Story to Dr. Lynch at 6:40 PM] Chest X-Ray 08/09/18 18:05 CONCLUSION: Basilar atelectasis. Cardiomegaly. Surgical clips right axillary region. Head CTA 08/09/18 18:05 CONCLUSION: 1. Negative CTA Head. Report was called by [ Dr Story to Dr Samayoa at 646pm] Neck CTA 08/09/18 18:05 CONCLUSION: 1. Negative CTA Carotid. Chest X-Ray 08/09/18 19:27 CONCLUSION: Good placement of the ET tube. Cardiomegaly. Diffuse increased interstitial markings likely related to diffuse processes such as edema. Further increased density at the left base representing either alveolar consolidation, atelectasis and/or left effusion. Exam Vital signs: Vital Signs 08/09/18 17:27 08/09/18 17:53 08/09/18 18:11 Pulse Rate 85 96 H Respiratory Rate 18 18 Blood Pressure 172/77 H 178/74 H Pulse Oximetry 95 96 96 08/09/18 18:40 08/09/18 20:08 Pulse Rate 112 H Respiratory Rate 16 Blood Pressure 130/73 Pulse Oximetry 96 Intake & Output 08/09/18 08/09/18 08/10/18 06:59 18:59 06:59 Weight 122.47 kg 132.7 kg - Constitutional no acute distress - Routine HEENT Exam Head: Present: normocephalic, atraumatic Eye: Present: EOMI, PERRL, normal accommodation ENT: Present: mucous membranes moist - Routine Neck Exam Present: supple, full ROM. Absent: JVD - Routine Chest/Breast/Axilla Exam Chest wall: Absent: tenderness Breast: Present: right mastectomy. Absent: tenderness Axillae: Absent: lymphadenopathy - Routine Respiratory Exam Present: CTA bilaterally. Absent: accessory muscle use - Routine Cardiovascular Exam Present: RRR, S1, S2. Absent: murmur - Routine Abdominal Exam Present: soft, normoactive bowel sounds - Routine Extremities Exam Present: edema. Absent: cyanosis, clubbing - Routine Skin Exam Present: intact - Routine Neurological Exam Present: CN II-XII intact. Absent: alert, oriented X3 Septic Shock Reassessment Septic shock perfusion: reassessment completed Caprini VTE Risk Assessment Caprini VTE Risk Assessment: Moderate/High Risk (score >= 2) VTE Pharmacological Exception Reason: Intracranial lesions Caprini Risk Assessment Model: Point Value = 1 Point Value = 2 Point Value = 3 Point Value = 5 Age 41-60 Minor surgery BMI > 25 kg/m2 Swollen legs Varicose veins or History of unexplained or recurrent spontaneous Oral contraceptives or hormone replacement Sepsis (< 1 month) Serious lung disease, including pneumonia (< 1 month) Abnormal pulmonary function Acute myocardial infarction Congestive heart failure (< 1 month) History of inflammatory bowel disease Medical patient at bed rest Age 61-74 Arthroscopic surgery Major open surgery (> 45 min) Laparoscopic surgery (> 45 min) Malignancy Confined to bed (> 72 hours) Immobilizing plaster cast Central venous access Age >= 75 History of VTE Family history of VTE Factor V Leiden Prothrombin [id number] Lupus anticoagulant Anticardiolipin antibodies Elevated serum homocysteine Heparin-induced thrombocytopenia Other congenital or acquired thrombophilia Stroke (< 1 month) Elective arthroplasty Hip, pelvis, or leg fracture Acute spinal cord injury (< 1 month) Prophylaxis Regimen: Total Risk Factor Score Risk Level Prophylaxis Regimen 0-1 Low Early ambulation 2 Moderate Order ONE of the following: *Sequential Compression Device (SCD) *Heparin 5000 units SQ BID 3-4 Higher Order ONE of the following medications: *Heparin 5000 units SQ TID *Enoxaparin/Lovenox 40 mg SQ daily (WT < 150 kg, CrCl > 30 mL/min) *Enoxaparin/Lovenox 30 mg SQ daily (WT < 150 kg, CrCl > 10-29 mL/min) *Enoxaparin/Lovenox 30 mg SQ BID (WT < 150 kg, CrCl > 30 mL/min) AND/OR *Sequential Compression Device (SCD) 5 or more Highest Order ONE of the following medications: *Heparin 5000 units SQ TID (Preferred with Epidurals) *Enoxaparin/Lovenox 40 mg SQ daily (WT < 150 kg, CrCl > 30 mL/min) *Enoxaparin/Lovenox 30 mg SQ daily (WT < 150 kg, CrCl > 10-29 mL/min) *Enoxaparin/Lovenox 30 mg SQ BID (WT < 150 kg, CrCl > 30 mL/min) AND *Sequential Compression Device (SCD) Assessment and Plan - Assessment and Plan Plan: Neuro/Psych: 2.4 cm left parietal brain mass Seizure disorder Currently on propofol/fentanyl drips for sedation/analgesia while intubated Of RA SS -[address] brain revealed 2.4 cm left parietal mass with edema. MRI of the brain ordered. Evaluated by neurosurgery Dr. Izquierdo. CT angiogram of the head and neck negative Loaded with levetiracetam 1 g followed by 500 mg twice daily Dexamethasone 10 mg IV x1 followed by 4 mg every 6 hours Seizure precaution CV: Currently normal saline 84 cc an hour. Not requiring vasopressors and her anti-pretenses. Resp: Acute respiratory failure PRVC Ventilation albuterol/ipratropium aerosols every 4 hours with albuterol aerosols every 2 hours as needed dyspnea Ventilator bundle Spontaneous breathing trials when clinically indicated GI: N.p.o. status NG tube to low inner wall suction Pantoprazole for GI prophylaxis Docusate sodium/senna 1 tablet twice daily for bowel regimen : Straight catheterization as needed Endo: Sliding scale insulin aspart insulin to maintain euglycemia while on steroids Check TSH Renal: Creatinine currently within normal limits Monitor urine output Accurate I's and O's Heme: Breast cancer status post right mastectomy Hemoglobin is currently 17. Recheck in a.m. FEN: Acute hypokalemia Replace electrolytes as clinically indicated MSK: Right brachial plexus injury status post right mastectomy Access -Utilize peripheral IV. Central line if indicated Prophylaxis \ -GI -pantoprazole -DVT -SCD/pharmacological prophylaxis contraindicated with intracranial mass Critical care time 35 minutes Code Status: Full code Discussed Condition With: ED physician. . Care plan discussed and all questions answered.
--- NOTE | 2018-08-09 22:39 | P.CONNS ---
History of Present Illness Primary Care Provider: UNKNOWN Chief Complaint: Seizure History of Present Illness: 57yoF with history of right brachial plexus tumor (11/2017) who presents with "dizziness" slurred speech. In ED, she had a generalized seizure, which prompted her intubation. Imaging showed a left parietal lesion 2cm with surrounding edema, MRI brain as well as CT C/A/P pending. Unclear history of her tumor (?sarcoma) involving right brachial plexus. [facility] - History History Provided By: Patient, Family Member - Medical History Medical History: Medical History (Last Updated 08/09/18 @ 18:08 by Sonya Diaz RN) Breast cancer Chronic pain Diarrhea Paralysis of right upper extremity - Surgical History Surgical History: Surgical History (Last Reviewed 08/09/18 @ 18:08 by Sonya Diaz RN) History of right mastectomy - Tobacco History Smoking Status: Former smoker - Alcohol History How Often Do You Have a Drink Containing Alcohol: Monthly or less - Substance Use History Substance History: Active Abuse - Substance Use Type Marijuana Status: Active - Travel History Recent Travel in the [place] Within the Last 8 Weeks: No Recent Travel Out of the Country Within the Last 8 Weeks: No - Immunization History Tetanus Immunization: Unsure Medications and Allergies Active Medications: Active Medications Acetaminophen (Tylenol) 650 mg PO Q6H PRN PRN Reason: Fever >101 Al Hydroxide/Mg Hydroxide (Milk Of Kirstin Looq) 30 ml PO Q12H PRN PRN Reason: Mild Constipation Albuterol (Albuterol Neb (Prn)) 2.5 mg NEB Q2HR NEB PRN PRN Reason: SHORTNESS OF BREATH/WHEEZING Albuterol (Duoneb Neb (Prn)) 1 ampul NEB Q2HR NEB PRN PRN Reason: SHORTNESS OF BREATH Albuterol (Duoneb Neb (Sky)) 1 ampul NEB Q4HR NEB SKY Artificial Tears (Tears Naturale Opth Drops) 1 drop EACH EYE TID SKY Bisacodyl (Dulcolax Supp) 10 mg RECTAL DAILY PRN PRN Reason: SEVERE CONSITIPATION Chlorhexidine Gluconate (Peridex 0.12% Oral Kit) 15 ml OROPHARYNG BID@0800, 2000 [facility] Chlorhexidine Gluconate (Chlorhexidine 2% Cloth) 3 pack TOPICAL DAILY@0400 [facility] Stop: 08/15/18 03:59 Chlorhexidine Gluconate (Chlorhexidine 2% Cloth) 3 pack TOPICAL DAILY@0400 PRN PRN Reason: Extra cloth needed Stop: 08/15/18 03:59 Fentanyl (Fentanyl 10 Mcg/Ml Premix Drip) 2,500 mcg in 250 mls @ 5 mls/hr IV.SIG TITRATE PRN; Protocol PRN Reason: Per Protocol Sodium Chloride (Ns Inj) 1,000 mls @ 84 mls/hr IV.CONT .[id number] SKY Propofol (Diprivan 1000 Mg/100 Ml Inj) 1,000 mg in 100 mls @ 3.981 mls/hr IV.CONT TITRATE PRN; Protocol PRN Reason: Per Protocol Lactulose (Lactulose Liq) 30 ml PO DAILY PRN PRN Reason: SEVERE CONSITIPATION Miscellaneous Medication () 1 each OROPHARYNG 0000,0400,1200,1600 SKY Ondansetron HCl (Zofran Inj) 4 mg IV.PUSH Q6H PRN PRN Reason: NAUSEA OR VOMITING Pantoprazole Sodium (Protonix Inj) 40 mg IV.PUSH Q24H SKY Senna/Docusate Sodium (Jen-Colace) 1 tab PO BID [facility] Sennosides (Senokot) 17.2 mg PO Q12H PRN PRN Reason: Moderate Constipation Sodium Chloride (Ns Flush) 2 ml IV.FLUSH BID SKY Sodium Chloride (Ns Flush) 2 ml IV.FLUSH PRN PRN PRN Reason: FLUSH AFTER USING IV ACCESS Allergies Allergy/AdvReac Type Severity Reaction Status Date / Time ketoconazole AdvReac Intermediate Verified 10/25/17 10:58 UNKNOWN NARCOTIC Allergy Intermediate Rash Uncoded 08/10/15 13:02 Exam Vital signs: Vital Signs 08/09/18 17:27 08/09/18 17:53 08/09/18 18:05 Pulse Rate 85 96 H 106 H Respiratory Rate 18 18 16 Blood Pressure 172/77 H 178/74 H 171/79 H Pulse Oximetry 95 96 08/09/18 18:11 08/09/18 18:40 08/09/18 20:08 Pulse Rate 112 H Respiratory Rate 16 Blood Pressure 130/73 Pulse Oximetry 96 96 Intake & Output 08/09/18 08/09/18 08/10/18 06:59 18:59 06:59 Weight 122.47 kg 132.7 kg Narrative: intubated, lightly sedated pupils 3 to 2 face symmetric moves left upper and bilateral lowers purposefully (not following commands) Results - Laboratory Findings CBC and BMP: 08/09/18 18:12 Abnormal lab findings: Abnormal Labs 08/09/18 08/09/18 18:12 20:14 POC Hgb (Calc) 17.0 H POC Hct 50.0 H ABG pH 7.30 L ABG pCO2 53 H* ABG pO2 201 H ABG O2 Content 20.3 H POC Potassium 3.3 L POC Chloride 99 L POC Glucose 136 H Troponin I Less than 0.02 L Assessment and Plan - Plan 57 yoF with newly discovered left parietal mass, history of right brachial plexus ?tumor (?sarcoma, 11/2017 MRI, ?treatment history). MRI Brain c/s contrast Keppra 1gm IV load then 500mg IV BID Decadron 10mg then 4mg IV q6 If she doesn't wake up to follow commands, repeat EEG to rule out status and get a Neurology consult.
[2018-08-09] MEDS ORDERED: Gadobutrol PF 10 MMOL/10 ML Vial (for RAD) IV.SIG ONE (23:07)
[2018-08-10] MEDS: Propofol 1000 mg/100 ml Inj 1,000 MG/100 ML BOTTLE IV.CONT PRN ×2 (00:01→03:13)
--- NOTE | 2018-08-10 00:16 | CT ---
EXAM DATE: 08/09/2018 11:56 PM EDT AGE/SEX: 57 years / Female INDICATIONS: Shortness of breath. Mass seen on head scan, evaluate for neoplasm. CLINICAL DATA: This is the patient's initial encounter. Patient reports that signs and symptoms have been present for 1 day and indicates a pain score of Nonresponsive. MEDICAL/SURGICAL HISTORY: Carcinoma, breast. Mastectomy, right. RADIATION DOSE: 20.53 CTDI (mGy) ; Combined studies COMPARISON: [facility], CT CHEST W/ CONTRAST, 08/07/2018. . TECHNIQUE: Multiple contiguous axial images were obtained through the chest during bolus infusion of 70 ml Omnipaque 350 (iohexol) nonionic water-soluble contrast as a cumulative dose for multiple exa ms. Images were obtained in suspended respiration using multiple row detector helical technique. U sing automated exposure control and adjustment of the mA and/or kV according to patient size, radiati on dose was kept as low as reasonably achievable to obtain optimal diagnostic quality images. DICOM format image data is available electronically for review and comparison. FINDINGS: Study is degraded by respiratory and patient motion. Lungs: Mild consolidative changes in the posterior and medial lung bases bilaterally. Mediastinum: There is good visualization of the great vessels of the middle mediastinum. No evidenc e of mediastinal or hilar adenopathy/mass. Pleurae: No evidence of focal thickening or pleural effusion. Axillae: Unremarkable. Bony Structures: Unremarkable. Miscellaneous: The examination was extended to include the upper abdomen, and both adrenal glands ar e normal in size and configuration. Post Contrast: No abnormal areas of enhancement seen. CONCLUSION: Consolidative changes in the posterior lung bases. Electronically signed by: Hoang Diaz MD 08/10/2018 12:15 AM EDT
[2018-08-10] MEDS ORDERED: Potassium Chloride 25 MEQ Effervescent Tablet PO PRN (00:22)
[2018-08-10] MEDS ORDERED: Potassium Phosphate 500 MG Soluble Tablet PO PRN ×2 (00:22)
[2018-08-10] MEDS ORDERED: Magnesium Sulfate Inj 2 GM in Sodium Chlor 0.9% Inj 96 ML IV.SIG PRN (00:22)
[2018-08-10] MEDS ORDERED: Potassium Chlor 20 mEq Premix 20 MEQ/100 ML PIGGYBACK IV.SIG PRN ×2 (00:22)
[2018-08-10] MEDS ORDERED: Magnesium Sulfate Inj 4 GM in Sodium Chlor 0.9% Inj 92 ML IV.SIG PRN (00:22)
[2018-08-10] MEDS ORDERED: Sodium Phosphate Inj 30 MMOL in Sodium Chlor 0.9% Inj 250 ML IV.SIG PRN (00:22)
[2018-08-10] MEDS ORDERED: Potassium Chlor 40 mEq Premix 40 MEQ/100 ML PIGGYBACK IV.SIG PRN ×2 (00:22)
[2018-08-10] MEDS ORDERED: Potassium Phosphate Inj 30 MMOL in Sodium Chlor 0.9% Inj 250 ML IV.SIG PRN (00:22)
[2018-08-10] MEDS ORDERED: Magnesium Oxide 400 MG Tablet PO PRN (00:22)
[2018-08-10] MEDS ORDERED: Dextrose 50% in Water 50 ML Vial IV.PUSH PRN (00:23)
--- NOTE | 2018-08-10 00:26 | CT ---
EXAM DATE: 08/09/2018 11:54 PM EDT AGE/SEX: 57 years / Female INDICATIONS: Nausea, vomiting and diarrhea. Mass seen on head scan, evaluate for neoplasm. CLINICAL DATA: This is the patient's initial encounter. Patient reports that signs and symptoms have been present for 1 day and indicates a pain score of Nonresponsive. MEDICAL/SURGICAL HISTORY: Carcinoma, breast. Mastectomy, right. ORAL CONTRAST: No oral contrast ingested. RADIATION DOSE: 20.53 CTDI (mGy) ; Combined studies COMPARISON: [facility], CT ABDOMEN AND PELVIS W/ CONTRAST, 08/07/2018. . TECHNIQUE: Multiple contiguous axial images were obtained through the abdomen and pelvis following b olus infusion of 70 ml Omnipaque 350 (iohexol) nonionic water-soluble contrast as a cumulative dose for multiple exams. No oral contrast ingested. Using automated exposure control and adjustment of t he mA and/or kV according to patient size, radiation dose was kept as low as reasonably achievable to obtain optimal diagnostic quality images. DICOM format image data is available electronically for r eview and comparison. FINDINGS: Liver: The liver has a homogeneous density without space-occupying lesion. There is no dilation of th e biliary tree. Spleen: Homogeneous density without enlargement. Pancreas: Unremarkable without mass or calcification. Kidneys: Normal in size and shape. No evidence of mass or hydronephrosis. Adrenal Glands: Unremarkable. Aorta: The aorta and proximal iliac vessels are grossly unremarkable without aneurysmal dilation. Bowel/Mesentery: Distal colonic diverticula. No abnormal dilatation of bowel. No focal wall thickeni ng or inflammatory changes. Abdominal Wall: Intact. Retroperitoneum: No evidence of adenopathy in the retrocrural, para-aortic, or deep pelvic regions. Bladder: Decompressed with Mckoy catheter. Reproductive Organs: No abnormal masses or calcifications seen. Inguinal: The inguinal region is unremarkable without evidence of adenopathy. Bony Structures: Prominent degenerative changes. Nonspecific sclerotic focus involving the right lat eral aspect of the L3 vertebral body CONCLUSION: 1. Stable exam appearance. 2. Nonspecific sclerotic focus involving L3 vertebral body Electronically signed by: Hoang Diaz MD 08/10/2018 12:24 AM EDT
--- NOTE | 2018-08-10 00:32 | MR ---
EXAM DATE: 08/09/2018 11:32 PM EDT AGE/SEX: 57 years / Female INDICATIONS: Metastatic disease. CLINICAL DATA: This is the patient's initial encounter. Patient reports that signs and symptoms have been present for 1 day and indicates a pain score of Nonresponsive. MEDICAL/SURGICAL HISTORY: Carcinoma, breast. Mastectomy, right. Vented. COMPARISON: [facility] [place] W [place]AST W 3D, 08/09/2018. . TECHNIQUE: Multiplanar, multisequence examination of the brain was performed without and with 10 ml G adavist (gadobutrol) contrast as a single exam dose. FINDINGS: There is a heterogeneous enhancing mass in the parafalcine medial left posterior parietal region whic h measures about 2.5 cm in size. There is moderate adjacent vasogenic edema. Smaller enhancing lesion s are present in the upper posterior left cerebellar hemisphere and in the medial right temporal elliott on. There is no evidence of intracranial hemorrhage. Nothing to suggest acute infarction. Extracranial st ructures are benign and intact. CONCLUSION: At least 3 enhancing brain lesions as above. Electronically signed by: Hoang Diaz MD 08/10/2018 12:31 AM EDT
[2018-08-10] MEDS: Sod Chloride 0.9% Inj 1,000 ML IV.CONT SCH ×3 (01:17→13:29)
[2018-08-10] MEDS: Oral Hygiene Kit OROPHARYNG SCH ×4 (01:18→16:10)
[2018-08-10] MEDS: Artificial Tears Opth Drops 15 ML Bottle EACH EYE SCH ×4 (01:26→18:13)
[2018-08-10] MEDS: Pantoprazole Inj 40 MG Vial IV.PUSH SCH ×2 (01:28→21:02)
[2018-08-10] MEDS: Senna/Docusate Sodium 8.6/50 MG Tablet PO SCH ×3 (01:28→21:02)
[2018-08-10] MEDS: Chlorhexidine Gluconate 2% 1 Pack (2 Cloths) TOPICAL SCH (03:41)
[2018-08-10] MEDS ORDERED: Chlorhexidine Gluconate 2% 1 Pack (2 Cloths) TOPICAL PRN (04:00)
[2018-08-10 04:29] LABS: ABG Base Excess 4.6 mmol/L (-2-2); ABG PCO2 37 mmHg (38-42); ABG PO2 172 mmHg (61-120)
[2018-08-10 06:03] LABS: Baso # (Auto) 0.1 th/mm3 (0.0-0.2); Baso % (Auto) 0.5 % (0.0-2.0); Eos % (Auto) 0.1 % (0.0-4.0); Hematocrit 40.6 % (35.0-46.0); Hemoglobin 13.9 gm/dL (11.6-15.3); Lymph # (Auto) 1.4 th/mm3 (1.0-4.8); Lymph % (Auto) 14.1 % (9.0-44.0); Mean Corpuscular HGB Conc 34.2 % (32.0-36.0); Mean Corpuscular Hemoglobin 31.9 pg (27.0-34.0); Mean Corpuscular Volume 93.4 fL (80.0-100.0); Mean Platelet Volume 8.6 fL (7.0-11.0); Mono # (Auto) 0.7 th/mm3 (0.0-0.9); Mono % (Auto) 6.7 % (0.0-8.0); Neut # (Auto) 7.8 th/mm3 (1.8-7.7); Neut % (Auto) 78.6 % (16.0-70.0); Platelet Count 156 th/mm3 (150-450); Red Blood Count 4.35 mil/mm3 (4.00-5.30); Red Cell Distribution Width 13.8 % (11.6-17.2); White Blood Count 9.9 th/mm3 (4.0-11.0)
[2018-08-10 06:24] LABS: Activated Partial Thrombo Time 25.4 sec (23.4-31.7); INR 1.1 Ratio; Prothrombin Time 10.7 sec (9.8-11.6)
[2018-08-10 06:32] LABS: Alanine Aminotransferase 42 U/L (10-53)
[2018-08-10 06:36] LABS: Albumin 3.5 g/dL (3.4-5.0); Alkaline Phosphatase 74 U/L (45-117); Anion Gap 7 meq/L (5-15); Aspartate Aminotransferase 57 U/L (15-37); Blood Urea Nitrogen 9 mg/dL (7-18); Calcium 8.7 mg/dL (8.5-10.1); Carbon Dioxide 28.8 meq/L (21.0-32.0); Chloride 103 meq/L (98-107); Creatine Kinase 876 U/L (26-192); Glomerular Filtration Rate 74 mL/min (>89); Glucose,Random 126 mg/dL (74-106); Magnesium 1.7 mg/dL (1.5-2.5); Potassium 4.1 meq/L (3.5-5.1); Sodium 139 meq/L (136-145); Total Protein 7.3 g/dL (6.4-8.2)
[2018-08-10] MEDS: Insulin NovoLOG Aspart Correctional Sugar Inj SQ SCH ×3 (06:51→18:18)
[2018-08-10 07:00] LABS: CKMB Percent 0.6 % (0.0-4.0)
[2018-08-10 07:02] LABS: Creatine Kinase MB 5.5 ng/mL (0.5-3.6)
[2018-08-10] MEDS ORDERED: Pantoprazole Inj 40 MG Vial IV.PUSH SCH (09:00)
--- NOTE | 2018-08-10 09:29 | P.PNNS ---
Subjective Interval history: Patient admitted via the ER last night. She came in with strokelike symptoms, but then was found to have a likely brain mass on CT. She then suffered a seizure, and was intubated. She went for MRI overnight, which demonstrated 3 enhancing masses within the brain. One is approximately 2.5 cm in the high left parietal region and likely responsible for her seizure, with significant surrounding cerebral edema. There is one in the high cerebellum, and one in the right mesial temporal lobe. This morning, she is alert, answering questions by nodding appropriately, and follows commands x3. I spoke to her son Dakota by phone. 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 She has had radiation and chemotherapy to that area, and was on some kind of maintenance chemotherapy at this time. She has no known metastatic disease previously. 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 Physical Exam Vital signs: Vital Signs 08/09/18 17:27 08/09/18 17:53 08/09/18 18:05 Temperature Pulse Rate 85 96 H 106 H Respiratory Rate 18 18 16 Blood Pressure 172/77 H 178/74 H 171/79 H Pulse Oximetry 95 96 08/09/18 18:11 08/09/18 18:40 08/09/18 19:20 Temperature Pulse Rate Respiratory Rate 15 Blood Pressure Pulse Oximetry 96 96 98 08/09/18 20:08 08/09/18 22:30 08/10/18 00:00 Temperature 99.0 F Pulse Rate 112 H 93 H Respiratory Rate 16 18 Blood Pressure 130/73 140/91 H Pulse Oximetry 100 100 08/10/18 02:50 08/10/18 03:09 08/10/18 03:24 Temperature Pulse Rate 92 H Respiratory Rate 22 18 Blood Pressure Pulse Oximetry 100 100 08/10/18 03:40 08/10/18 03:44 08/10/18 04:00 Temperature 98.9 F 98.9 F Pulse Rate 85 82 Respiratory Rate 18 16 Blood Pressure 167/98 H 140/65 Pulse Oximetry 98 98 98 08/10/18 08:00 08/10/18 08:17 Temperature 99.3 F Pulse Rate 103 H 101 H Respiratory Rate 12 14 Blood Pressure 149/70 H Pulse Oximetry 96 Intake & Output 08/09/18 08/10/18 08/10/18 18:59 06:59 18:59 Intake Total Output Total 1650 / 1650 Balance -1445 / -1445 Weight 122.47 kg 127.1 kg Intake: IV Diprivan 1000 mg/100 ml Inj 1, 100 / 100 000 mg In 100 ml @ 5 MCG/KG/MIN 3.981 mls/hr IV.CONT TITRATE PRN Rx#:[id number] Keppra Inj 500 MG In NS Inj 100 105 / 105 ML @ 400 mls/hr IV.SIG Q12H MAC[facility]IO Rx#:[id number] Output: Stool 0 / 0 Urine Amount (Catheter) 1300 / 1300 Indwelling Urethral Catheter 1300 / 1300 Gastric Drainage 350 / 350 Orogastric Tube 350 / 350 Other: Weight On Admission 127.5 kg - Routine Neurological Exam Intubated. Eyes open spontaneously, regards and tracks appropriately. Nods yes /no appropriately to questions. Follows commands briskly and with normal strength x3, paralyzed right upper extremity which is baseline for her. - Urinary Catheter Management Indwelling Urethral Catheter Cath placed during this visit: yes Reason for continuing: Hourly intake/output Insertion date: 08/09/18 Insertion time: 19:40 Assessment and Plan - Plan 57-year-old female with history of malignant right brachial plexus tumor, uncertain tumor type, status post radiation and chemotherapy of some sort, now with generalized seizure and 3 enhancing metastatic deposits within the brain. The largest of the lesions is 2.5 cm. Given its location, and her very morbid obesity, could be challenging to access surgically, but not impossible. Alternative would include radiosurgery after giving steroids for brain edema. Would almost certainly favor radiosurgery for the other 2 lesions, as they are small. Even after surgery, would require focal radiation to the tumor bed for the larger lesion. We have placed consults for neurology, oncology, and radiation oncology to assess her. I will ask Dr. Ríso to assume her care on Sunday. She has been loaded with Keppra and we will continue that. She has been loaded with Decadron and we will continue 4q for brain edema. I discussed all of this with her son, Dakota, who is in agreement. [facility] team is going to work on extubation today if possible. She will have a CPAP trial this morning. Son, Dakota: [phone]. Other contact (Friend?) Arturo [phone].
[2018-08-10] MEDS: Chlorhexidine 0.12% Oral Kit 15 ML UDC OROPHARYNG SCH ×2 (10:27→21:01)
--- NOTE | 2018-08-10 12:34 | MB ---
cc: Stephanie Samayoa MD DATE: 08/10/2018 REASON FOR CONSULTATION: Initially came in as possible stroke alert. HISTORY OF PRESENT ILLNESS: This is a 57-year-old woman with a history of breast cancer with extension into the right brachial plexus, status post chemotherapy and radiation with residual loss of movement in the right arm. She had a normal day, was feeling fine. Denied any headache or weakness or vision issues or speech problems, when all of a sudden she went into the bathroom and then did not know how to get out of there. She started then having some slurring of speech, became maybe dizzy, not sure. Had what is described as expressive aphasia. The patient cannot recall that. She has chronic weakness in the right arm. It was not noted that she had any weakness in the leg or on the contralateral side. Apparently, she was intubated in the ER for what was described by the ER physician as a general tonic-clonic seizure soon after arrival. She is now extubated. She still has no recollection of what happened. She was placed on Keppra. She is on 500 every 12 hours and I see that they did start her on Decadron 4 mg every 6 hours. She is status post MRI. PAST MEDICAL HISTORY: As stated. PAST SURGICAL HISTORY: Right mastectomy. FAMILY HISTORY: Noncontributory. SOCIAL HISTORY: She is a former smoker. PHYSICAL EXAMINATION: VITAL SIGNS: Temperature is 99.3, heart rate 101, respiratory rate 14, blood pressure 149/70. NEUROLOGIC: She is extubated now. Awake and alert. A little hoarse. Pupils are reactive. Extraocular muscles are intact. Visual hansen seem full. Motor: Right upper extremity is flaccid, unable to move. Left arm, normal strength. Legs: No leg lag. Toes withdraws. DTRs are blunted throughout. Gait cannot be assessed. Cerebellar normal. IMAGING: Brain MRI with and without contrast confirms an enhancing mass in the parafalcine medial left posterior parietal which is 2.5 cm in size with moderate adjacent vasogenic edema. There is also a similar lesion in the left cerebellar hemisphere, in the right medial temporal lobe region, but nothing regarding any hemorrhage and no acute infarction. She had an abdominal CT that showed consolidative changes in the posterior lung bases. Abdomen and pelvis CT, stable nonspecific sclerotic focus L3 vertebral body, per report. She had a neck CTA that was negative for any stenosis. Head CTA was negative. IMPRESSION: A 57-year-old woman with most likely seizure due to what looks like metastatic disease to the brain, probably from her breast cancer. However, at this point in time, we will continue her Keppra. We will get an EEG as well as continue her Decadron. I will defer any change in Decadron to her oncologist, who has been consulted, if they want to decrease the dose or not. Maintain seizure precautions. Fortunately, she is extubated and she may be a candidate for radiosurgery looking at the neurosurgeon's note. Continue current care per other consultants as well, and I will go ahead and get an EEG ordered and continue her Keppra at this time. MD ALIN Arteaga/sade , 11:24 AM , 11:34 AM
--- NOTE | 2018-08-10 16:55 | P.CON ---
History of Present Illness Service: radiation oncology Primary Care Provider: UNKNOWN Chief Complaint: Seizure/altered mental status History of Present Illness: New brain metastases. Confusion yesterday resolved now. Recurrent breast cancer earlier this year. PMF - History History Provided By: Patient, Family Member - Medical History Medical History: Medical History (Last Reviewed 08/10/18 @ 07:22 by Lora Rae) Breast cancer Chronic pain Diarrhea Paralysis of right upper extremity - Surgical History Surgical History: Surgical History (Last Reviewed 08/10/18 @ 07:22 by Lora Rae) History of right mastectomy - Family History Family History: Family History (Last Updated 08/10/18 @ 00:26 by Minor Ashraf MD) Other Family history unknown - Tobacco History Smoking Status: Former smoker - Alcohol History How Often Do You Have a Drink Containing Alcohol: Monthly or less - Substance Use History Substance History: Active Abuse - Substance Use Type Marijuana Status: Active - Travel History Recent Travel in the [facility] Within the Last 8 Weeks: No Recent Travel Out of the Country Within the Last 8 Weeks: No - Immunization History Tetanus Immunization: Unsure Medications and Allergies Active Medications: Active Medications Acetaminophen (Tylenol) 650 mg PO Q6H PRN PRN Reason: Fever >101 Al Hydroxide/Mg Hydroxide (Milk Of Magnmala Liq) 30 ml PO Q12H PRN PRN Reason: Mild Constipation Albuterol (Albuterol Neb (Prn)) 2.5 mg NEB Q2HR NEB PRN PRN Reason: SHORTNESS OF BREATH/WHEEZING Albuterol (Duoneb Neb (Prn)) 1 ampul NEB Q2HR NEB PRN PRN Reason: SHORTNESS OF BREATH Albuterol (Duoneb Neb (Sky)) 1 ampul NEB Q4HR NEB SKY Last Admin: 08/10/18 15:57 Dose: Not Given Artificial Tears (Tears Naturale Opth Drops) 1 drop EACH EYE TID [facility] Last Admin: 08/10/18 13:33 Dose: Not Given Bisacodyl (Dulcolax Supp) 10 mg RECTAL DAILY PRN PRN Reason: SEVERE CONSITIPATION Chlorhexidine Gluconate (Peridex 0.12% Oral Kit) 15 ml OROPHARYNG BID@0800, 2000 [facility] Last Admin: 08/10/18 10:27 Dose: 15 ml Chlorhexidine Gluconate (Chlorhexidine 2% Cloth) 3 pack TOPICAL DAILY@0400 [facility] Stop: 08/15/18 03:59 Last Admin: 08/10/18 03:41 Dose: 3 pack Chlorhexidine Gluconate (Chlorhexidine 2% Cloth) 3 pack TOPICAL DAILY@0400 PRN PRN Reason: Extra cloth needed Stop: 08/15/18 03:59 Dexamethasone Sodium Phosphate (Decadron Inj) 4 mg IV.PUSH Q6HR [facility] Last Admin: 08/10/18 13:32 Dose: 4 mg Dextrose (D50w Vial) 50 ml IV.PUSH UNSCH PRN PRN Reason: PER HYPOGLYCEMIA PROTOCOL Glucagon (Glucagon Inj) 1 mg OTHER PRN PRN PRN Reason: for Hypoglycemia Protocol Fentanyl (Fentanyl 10 Mcg/Ml Premix Drip) 2,500 mcg in 250 mls @ 5 mls/hr IV.SIG TITRATE PRN; Protocol PRN Reason: Per Protocol Last Titration: 08/10/18 06:00 Dose: 50 mcg/hr, 5 mls/hr Sodium Chloride (Ns Inj) 1,000 mls @ 84 mls/hr IV.CONT .[id number] [facility] Last Admin: 08/10/18 13:29 Dose: 84 mls/hr Propofol (Diprivan 1000 Mg/100 Ml Inj) 1,000 mg in 100 mls @ 3.981 mls/hr IV.CONT TITRATE PRN; Protocol PRN Reason: Per Protocol Last Titration: 08/10/18 06:00 Dose: 10 mcg/kg/min, 7.96 mls/hr Magnesium Sulfate 4 gm/ Sodium (Chloride) 100 mls @ 50 mls/hr IV.SIG UNSCH PRN PRN Reason: For Magnesium 0.9 - 1.1 mg/dL Magnesium Sulfate 2 gm/ Sodium (Chloride) 100 mls @ 50 mls/hr IV.SIG UNSCH PRN PRN Reason: For Magnesium 1.2 - 1.6 mg/dL Potassium Chloride (Kcl 40 Meq Premix Inj) 40 meq in 100 mls @ 25 mls/hr IV.SIG Q2H PRN PRN Reason: For Potassium 2.8 - 3.2 mEq/L Potassium Chloride (Kcl 20 Meq Premix Inj) 20 meq in 100 mls @ 50 mls/hr IV.SIG Q2H PRN PRN Reason: For Potassium 3.3 - 3.5 mEq/L Potassium Chloride (Kcl 40 Meq Premix Inj) 40 meq in 100 mls @ 25 mls/hr IV.SIG UNSCH PRN PRN Reason: For Potassium 3.3 - 3.5 mEq/L Potassium Chloride (Kcl 20 Meq Premix Inj) 20 meq in 100 mls @ 50 mls/hr IV.SIG Q2H PRN PRN Reason: For Potassium 2.8 - 3.2 mEq/L Potassium Phosphate 30 mmol/ (Sodium Chloride) 260 mls @ 42 mls/hr IV.SIG UNSCH PRN PRN Reason: SEE LABEL COMMENTS Sodium Phosphate 30 mmol/ (Sodium Chloride) 260 mls @ 42 mls/hr IV.SIG UNSCH PRN PRN Reason: For Phosphorus < 2.5 mg/dL Levetiracetam 500 mg/ Sodium (Chloride) 105 mls @ 400 mls/hr IV.SIG Q12H [facility] Last Admin: 08/10/18 16:26 Dose: 400 mls/hr Insulin Aspart (Novolog Insulin Correctional Sugar Inj) 0 unit SQ Q6HR [facility]; Protocol Last Admin: 08/10/18 13:32 Dose: Not Given Lactulose (Lactulose Liq) 30 ml PO DAILY PRN PRN Reason: SEVERE CONSITIPATION Magnesium Oxide (Mag-Ox) 800 mg PO UNSCH PRN PRN Reason: For Magnesium 1.2 - 1.6 mg/dL Miscellaneous Medication () 1 each OROPHARYNG 0000,0400,1200,1600 [facility] Last Admin: 08/10/18 16:10 Dose: Not Given Ondansetron HCl (Zofran Inj) 4 mg IV.PUSH Q6H PRN PRN Reason: NAUSEA OR VOMITING Pantoprazole Sodium (Protonix Inj) 40 mg IV.PUSH Q24H [facility] Last Admin: 08/10/18 01:28 Dose: Not Given Potassium Bicarb/Potassium Chloride (K-Lyte Cl Eff) 50 meq PO UNSCH PRN PRN Reason: For Potassium 3.3 - 3.5 mEq/L Potassium Phosphate (K-Phos Original) 2,000 mg PO Q4H PRN PRN Reason: Phosphorus Less Than 2.5 mg/dL Potassium Phosphate (K-Phos Original) 2,000 mg PO UNSCH PRN PRN Reason: SEE LABEL COMMENTS Senna/Docusate Sodium (Jen-Colace) 1 tab PO BID [facility] Last Admin: 08/10/18 10:28 Dose: Not Given Sennosides (Senokot) 17.2 mg PO Q12H PRN PRN Reason: Moderate Constipation Sodium Chloride (Ns Flush) 2 ml IV.FLUSH BID [facility] Last Admin: 08/10/18 10:28 Dose: Not Given Sodium Chloride (Ns Flush) 2 ml IV.FLUSH PRN PRN PRN Reason: FLUSH AFTER USING IV ACCESS Allergies Allergy/AdvReac Type Severity Reaction Status Date / Time ketoconazole AdvReac Intermediate Verified 10/25/17 10:58 UNKNOWN NARCOTIC Allergy Intermediate Rash Uncoded 08/10/15 13:02 Physical Exam Vital signs: Vital Signs 08/09/18 17:27 08/09/18 17:53 08/09/18 18:05 Temperature Pulse Rate 85 96 H 106 H Respiratory Rate 18 18 16 Blood Pressure 172/77 H 178/74 H 171/79 H Pulse Oximetry 95 96 08/09/18 18:11 08/09/18 18:40 08/09/18 19:20 Temperature Pulse Rate Respiratory Rate 15 Blood Pressure Pulse Oximetry 96 96 98 08/09/18 20:08 08/09/18 22:30 08/10/18 00:00 Temperature 99.0 F Pulse Rate 112 H 93 H Respiratory Rate 16 18 Blood Pressure 130/73 140/91 H Pulse Oximetry 100 100 08/10/18 02:50 08/10/18 03:09 08/10/18 03:24 Temperature Pulse Rate 92 H Respiratory Rate 22 18 Blood Pressure Pulse Oximetry 100 100 08/10/18 03:40 08/10/18 03:44 08/10/18 04:00 Temperature 98.9 F 98.9 F Pulse Rate 85 82 Respiratory Rate 18 16 Blood Pressure 167/98 H 140/65 Pulse Oximetry 98 98 98 08/10/18 08:00 08/10/18 08:17 08/10/18 12:00 Temperature 99.3 F Pulse Rate 103 H 101 H 77 Respiratory Rate 12 14 15 Blood Pressure 149/70 H 131/62 Pulse Oximetry 96 92 L 08/10/18 12:30 08/10/18 13:00 08/10/18 13:30 Temperature Pulse Rate 79 73 77 Respiratory Rate 16 15 15 Blood Pressure 140/65 128/58 L 127/60 Pulse Oximetry 92 L 92 L 94 L 08/10/18 14:00 08/10/18 14:30 08/10/18 15:00 Temperature Pulse Rate 77 82 80 Respiratory Rate 14 24 22 Blood Pressure 130/60 136/67 142/64 H Pulse Oximetry 95 94 L 95 08/10/18 15:30 Temperature Pulse Rate 78 Respiratory Rate 14 Blood Pressure 134/64 Pulse Oximetry 95 Intake & Output 08/09/18 08/10/18 08/10/18 18:59 06:59 18:59 Intake Total 1999 Output Total 1650 / 1650 Balance -1445 / -1445 1999 Weight 122.47 kg 127.1 kg Intake: IV 1999 Diprivan 1000 mg/100 ml Inj 1, 100 / 100 000 mg In 100 ml @ 5 MCG/KG/MIN 3.981 mls/hr IV.CONT TITRATE PRN Rx#:[id number] NS Inj 1,000 ML @ 84 mls/hr IV. 1999 CONT .[id number] SKY Rx#:[id number] Keppra Inj 500 MG In NS Inj 100 105 / 105 ML @ 400 mls/hr IV.SIG Q12H [facility] Rx#:[id number] Output: Stool 0 / 0 Urine Amount (Catheter) 1300 / 1300 Indwelling Urethral Catheter 1300 / 1300 Gastric Drainage 350 / 350 Orogastric Tube 350 / 350 Other: Weight On Admission 127.5 kg - Urinary Catheter Management Indwelling Urethral Catheter Cath placed during this visit: yes Reason for continuing: Hourly intake/output Insertion date: 08/09/18 Insertion time: 19:40 Assessment and Plan - Plan discussed srs or SRT fractionated. Discussed claustrophobia. 30 minute face to face and imaging and chart review.
--- NOTE | 2018-08-10 17:09 | MB ---
cc: Allie Arredondo MD,Cirilo Nascimento MD,Thomas WEIR DATE: 08/10/2018 REFERRING PHYSICIAN: Dat Izquierdo MD CHIEF COMPLAINT: Dr Izquierdo requests consultation for Ms. 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 HISTORY OF PRESENT ILLNESS: Ms. Olvera is a 57-year-old woman, well known patient to Dr. Thomas Vanessa with HER2/bowen positive metastatic breast cancer. She was initially diagnosed in August 2015 and underwent a right mastectomy and axillary dissection. She had 14 positive lymph nodes. She received Taxotere, Herceptin and pertuzumab adjuvantly. She completed Herceptin for 1 year. 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 Recurrence was confirmed, and she was treated with palliative Abraxane, Herceptin, and pertuzumab with excellent response. She has a normal ejection fraction and resolution of her extracranial disease. She is severely claustrophobic and was not able to obtain a PET scan or MRI of the brain. She was doing well and making plans for local travel when she developed weakness of the right leg, slurring of her speech and confusion. She notes being able to think about the answer to her question but not be able to speak it. She told her partner something was terribly wrong and does not remember any event after that. She was brought into the hospital with acute mental status change. She was noted to have seizures in the emergency room. She was intubated for protection of her airway and gradually extubated. IMAGING STUDIES: CT scan of the brain revealed a 2.4 cm left parietal mass. She had additional imaging including MRI of the brain with sedation showing at least 3 enhancing brain lesions. She was started on Decadron. She was seen by Neurology in the morning. Her seizure event was attributed to the WAREHOUSE [employer]ER metastatic disease. EEG is pending. She is anxious this morning. She has no pain, the right arm continues to be limp. She denies any headaches. No vision changes. No nausea or vomiting. She can move the left arm and both lower extremities. She denies any abdominal pain. PAST MEDICAL HISTORY: Metastatic HER2/bowen overexpressing breast cancer, obesity, psoriasis, hypertension. PAST SURGICAL HISTORY: Right mastectomy and axillary dissection, tonsillectomy, lumbar spine surgery. FAMILY HISTORY: Mother is . She has no known history of breast or ovarian cancer. SOCIAL HISTORY: She is single with a significant other or partner. Her son, aged 23, still lives with them. She has a daughter up [place] who is independent. SOCIAL HISTORY: She has a history of smoking, None currently. She is currently unemployed. She denies any alcohol or illicit drug use. She has a 3-pack-year smoking history and quit 30 years ago. MEDICATIONS: 1. Tylenol p.r.n. 2. DuoNebs. 3. Decadron 4 mg IV every 6 hours. 4. Fentanyl p.r.n. 5. Keppra. PHYSICAL EXAMINATION: VITAL SIGNS: Temperature 99.3, heart rate 103, respiratory rate 16, blood pressure 149/70, saturation 96%. GENERAL: Ms. Olvera is an obese, well-developed, anxious-appearing woman, who looks her stated age. She has thin hair returning. HEENT: Her pupils are round, reactive to light and accommodation. Oropharynx is clear. NECK: Supple. No mass appreciated. Right arm is limp. LUNGS: Clear anteriorly. CARDIOVASCULAR: Exam reveals tachycardia. ABDOMEN: Large and benign. EXTREMITIES: Lower extremity with no edema. LABORATORY DATA: Significant for a normal CBC. PT, PTT is normal. Chemistry shows mild elevation in glucose. Lactic acid is slightly elevated. AST shows a slight elevation of 57, ALT 42, alkaline phosphatase is normal. Total creatinine is 876. ASSESSMENT AND PLAN: Ms. Olvera is a 57-year-old woman with history of obesity, hypertension, HER2/bowen overexpressing metastatic breast cancer. She is on maintenance Herceptin, and pertuzumab with stable disease. She is tolerating treatment well with last echo that is normal. She has developed symptoms of seizures and confusion/acute mental status change from 3 central nervous system metastatic lesion. We discussed at length that the central nervous system disease does not represent failure of her treatment, but rather untreated central nervous system metastatic disease at the time of her recurrence. We discussed that chemotherapy, Herceptin and pertuzumab do not cross the blood-brain barrier. Radiation Oncology was consulted. The case was discussed with Dr. Agudelo. We anticipate proceeding with stereotactic radiation therapy. Ms. Olvera expressed that she is extremely claustrophobic but anticipate that she would be able to tolerate the treatment with sedation. She is aware that the mask used for radiation is a mesh and therefore would be able to see through it. Her questions were answered to her satisfaction. Dr. Vanessa will return mid week to resume her care. We anticipate that Herceptin and pertuzumab will continue every 3 weeks as previous. MD CARLIE Gonzalez/dee , 02:53 PM , 03:05 PM
[2018-08-11] MEDS: Sod Chloride 0.9% Inj 1,000 ML IV.CONT SCH ×2 (00:36→11:22)
[2018-08-11] MEDS: Oral Hygiene Kit OROPHARYNG SCH ×4 (00:41→15:32)
[2018-08-11] MEDS: Insulin NovoLOG Aspart Correctional Sugar Inj SQ SCH ×4 (00:41→17:29)
[2018-08-11] MEDS: Chlorhexidine Gluconate 2% 1 Pack (2 Cloths) TOPICAL SCH (03:34)
[2018-08-11] MEDS: Chlorhexidine 0.12% Oral Kit 15 ML UDC OROPHARYNG SCH ×2 (07:59→21:20)
[2018-08-11] MEDS: Senna/Docusate Sodium 8.6/50 MG Tablet PO SCH ×2 (08:00→21:19)
[2018-08-11] MEDS: Artificial Tears Opth Drops 15 ML Bottle EACH EYE SCH ×3 (08:01→17:27)
--- NOTE | 2018-08-11 09:10 | P.PNONC ---
Subjective Interval history: Afebrile No further seizures Patient states she is feeling significantly improved Occasionally still having difficulty with word finding Denies headache Objective Vital Signs/Intake & Output: Vital Signs 08/10/18 12:00 08/10/18 12:30 08/10/18 13:00 Temperature Pulse Rate 77 79 73 Respiratory Rate 15 16 15 Blood Pressure 131/62 140/65 128/58 L Pulse Oximetry 92 L 92 L 92 L 08/10/18 13:30 08/10/18 14:00 08/10/18 14:30 Temperature Pulse Rate 77 77 82 Respiratory Rate 15 14 24 Blood Pressure 127/60 130/60 136/67 Pulse Oximetry 94 L 95 94 L 08/10/18 15:00 08/10/18 15:30 08/10/18 16:00 Temperature 98.8 F Pulse Rate 80 78 82 Respiratory Rate 22 14 16 Blood Pressure 142/64 H 134/64 140/79 Pulse Oximetry 95 95 08/10/18 19:58 08/10/18 20:00 08/10/18 22:40 Temperature 99.1 F 98.1 F Pulse Rate 65 70 78 Respiratory Rate 15 21 18 Blood Pressure 117/58 L 129/60 Pulse Oximetry 96 98 08/11/18 04:00 08/11/18 07:00 08/11/18 07:51 Temperature 98.2 F 98.7 F Pulse Rate 77 77 79 Respiratory Rate 20 12 18 Blood Pressure 140/70 143/72 H Pulse Oximetry 98 97 08/11/18 09:04 Temperature Pulse Rate Respiratory Rate Blood Pressure Pulse Oximetry 98 Intake & Output 08/10/18 08/11/18 08/11/18 19:59 06:59 18:59 Intake Total Output Total Balance Weight Intake: IV Diprivan 1000 mg/100 ml Inj 1, 000 mg In 100 ml @ 5 MCG/KG/MIN 3.981 mls/hr IV.CONT TITRATE PRN Rx#:[id number] NS Inj 1,000 ML @ 84 mls/hr IV. CONT .[id number] [facility] Rx#:[id number] fentaNYL 10 mcg/mL Premix Drip 2,500 mcg In 250 ml @ 50 MCG/HR 5 mls/hr IV.SIG TITRATE PRN Rx #:[id number] Keppra Inj 500 MG In NS Inj 100 ML @ 400 mls/hr IV.SIG Q12H [facility] Rx#:[id number] Oral Output: Urine Urine Amount (Catheter) Indwelling Urethral Catheter Other: # Voids Date of Last Bowel Movement Result Diagrams: 08/10/18 05:50 08/10/18 05:50 Laboratory Results: Laboratory Results - last 24 hr 08/10/18 08/11/18 08/11/18 13:09 00:39 05:46 POC Glucose 111 H 127 H 157 H Medications: Active Medications Generic Name Dose Route Start Last Admin Trade Name Freq PRN Reason Stop Dose Admin Albuterol 1 ampul 08/10/18 00:00 08/11/18 09:00 Duoneb Neb (Sky) NEB 1 ampul Q4HR NEB SKY Administration Artificial Tears 1 drop 08/09/18 20:29 08/11/18 08:01 Tears Naturale Opth Drops EACH EYE Not Given TID SKY Chlorhexidine Gluconate 15 ml 08/10/18 08:00 08/11/18 07:59 Peridex 0.12% Oral Kit OROPHARYNG Not Given BID@0800,1999 [facility] Chlorhexidine Gluconate 3 pack 08/10/18 04:00 08/11/18 03:34 Chlorhexidine 2% Cloth TOPICAL 08/15/18 03:59 Not Given DAILY@0400 [facility] Dexamethasone Sodium Phosphate 4 mg 08/10/18 06:00 08/11/18 05:35 Decadron Inj IV.PUSH 4 mg Q6HR SKY Administration Fentanyl 2,500 mcg in 250 mls @ 5 mls/hr 08/09/18 20:24 08/10/18 21:40 Fentanyl 10 Mcg/Ml Premix Drip IV.SIG Infused TITRATE PRN Titration Per Protocol Protocol 50 MCG/HR Sodium Chloride 1,000 mls @ 84 mls/hr 08/09/18 21:00 08/11/18 00:36 Ns Inj IV.CONT 84 mls/hr .[id number] SKY Administration Propofol 1,000 mg in 100 mls @ 3.981 mls/hr 08/09/18 20:24 08/10/18 21:40 Diprivan 1000 Mg/100 Ml Inj IV.CONT Infused TITRATE PRN Titration Per Protocol Protocol 5 MCG/KG/MIN Levetiracetam 500 mg/ Sodium 105 mls @ 400 mls/hr 08/10/18 05:00 08/11/18 05: 58 Chloride IV.SIG Infused Q12H SKY Infusion Insulin Aspart 0 unit 08/10/18 06:00 08/11/18 05:55 Novolog Insulin Correctional Sugar Inj SQ 2 unit Q6HR SKY Administration Protocol Miscellaneous Medication 1 each 08/10/18 00:00 08/11/18 03:34 OROPHARYNG Not Given 0000,0400,1200,1600 [facility] Pantoprazole Sodium 40 mg 08/09/18 21:00 08/10/18 21:02 Protonix Inj IV.PUSH 40 mg Q24H SKY Administration Senna/Docusate Sodium 1 tab 08/09/18 21:00 08/11/18 08:00 Jen-Colace PO Not Given BID SKY Sodium Chloride 2 ml 08/09/18 21:00 08/11/18 08:00 Ns Flush IV.FLUSH 2 ml BID SKY Administration Sodium Chloride 2 ml 08/09/18 20:24 08/10/18 21:01 Ns Flush IV.FLUSH 2 ml PRN PRN Administration FLUSH AFTER USING IV ACCESS Objective Remarks: GENERAL: Obese older female sitting up in bed in no acute distress SKIN: Warm and dry. Left upper chest wall port accessed. HEAD: Normocephalic. EYES: No scleral icterus. No injection or drainage. NECK: Supple, trachea midline. No JVD or lymphadenopathy. CARDIOVASCULAR: Regular rate and rhythm without murmurs. RESPIRATORY: Breath sounds equal bilaterally. No accessory muscle use. GASTROINTESTINAL: Abdomen soft, non-tender, nondistended. EXTREMITIES: Right arm flaccid. SCDs to bilateral lower extremities MUSCULOSKELETAL: Adequate muscle tone. NEUROLOGICAL: No obvious focal deficit. Awake, alert, and oriented x3 Assessment/Plan - Plan 57-year-old female with metastatic HER-2/bowen over expressing breast cancer who presents with acute mental status change with IN[employer] M[employer] metastatic disease 1. Continue Decadron and Keppra for INKING [employer]ER metastatic disease 2. Patient has appointment with Dr. Vanessa on of next week for Herceptin and pertuzumab. 3. Monitor for seizures, AMS. Continue supportive care. 4. Patient will follow up with Dr. Agudelo with radiation oncology to be simulated for cranial radiation. - Attending Statement The exam, history, and the medical decision-making described in the above note were completed with the assistance of the mid-level provider. I reviewed and agree with the findings presented. I attest that I had a [id number] encounter with the patient on the same day, and personally performed and documented my assessment and findings in the medical record. Feeling more confident about radiation therapy. Still very concerned about claustrophobia. Reassured by Dr. Agudelo. Appreciate Dr. Agudelo consult. Treatment with Herceptin and Perjeta will continue as planned on an outpatient basis as ordered by Dr. Vanessa.
--- NOTE | 2018-08-11 11:29 | P.PNNS ---
Subjective Interval history: Pt extubated yesterday and transferred to [place] [address]. Feeling well today. Able to ask her directly about oncologic history. She actually has hx of breast cancer which has been radiated in the past, and the brachial plexus tumor was presumed to be metastatic from that. The radiation field from her breast was too close, which is why she only had chemotherapy for the plexus tumor. Dr. Ríos agreed with plan for radiation; [facility] has seen her and is arranging outpatient followup. Physical Exam Vital signs: Vital Signs 08/10/18 12:30 08/10/18 13:00 08/10/18 13:30 Temperature Pulse Rate 79 73 77 Respiratory Rate 16 15 15 Blood Pressure 140/65 128/58 L 127/60 Pulse Oximetry 92 L 92 L 94 L 08/10/18 14:00 08/10/18 14:30 08/10/18 15:00 Temperature Pulse Rate 77 82 80 Respiratory Rate 14 24 22 Blood Pressure 130/60 136/67 142/64 H Pulse Oximetry 95 94 L 95 08/10/18 15:30 08/10/18 16:00 08/10/18 19:58 Temperature 98.8 F Pulse Rate 78 82 65 Respiratory Rate 14 16 15 Blood Pressure 134/64 140/79 Pulse Oximetry 95 08/10/18 20:00 08/10/18 22:40 08/11/18 04:00 Temperature 99.1 F 98.1 F 98.2 F Pulse Rate 70 78 77 Respiratory Rate 21 18 20 Blood Pressure 117/58 L 129/60 140/70 Pulse Oximetry 96 98 98 08/11/18 07:00 08/11/18 07:51 08/11/18 09:04 Temperature 98.7 F Pulse Rate 77 79 Respiratory Rate 12 18 Blood Pressure 143/72 H Pulse Oximetry 97 98 08/11/18 11:07 Temperature 97.6 F Pulse Rate 75 Respiratory Rate 20 Blood Pressure 147/79 H Pulse Oximetry 98 Intake & Output 08/10/18 08/11/18 08/11/18 19:59 06:59 18:59 Intake Total 1000 / 1000 Output Total Balance 1000 / 1000 Weight Intake: IV 1000 / 1000 Diprivan 1000 mg/100 ml Inj 1, 000 mg In 100 ml @ 5 MCG/KG/MIN 3.981 mls/hr IV.CONT TITRATE PRN Rx#:[id number] NS Inj 1,000 ML @ 84 mls/hr IV. 1000 / 1000 CONT .[id number] [facility] Rx#:[id number] fentaNYL 10 mcg/mL Premix Drip 2,500 mcg In 250 ml @ 50 MCG/HR 5 mls/hr IV.SIG TITRATE PRN Rx #:[id number] Keppra Inj 500 MG In NS Inj 100 ML @ 400 mls/hr IV.SIG Q12H [facility] Rx#:[id number] Oral Output: Urine Urine Amount (Catheter) Indwelling Urethral Catheter Other: # Voids Date of Last Bowel Movement 08/10/18 - Routine Neurological Exam Alert, conversant, fully oriented. FC briskly x 3 with normal strength. RUE plegic, baseline. - Urinary Catheter Management Indwelling Urethral Catheter Cath placed during this visit: yes Reason for continuing: Hourly intake/output Insertion date: 08/09/18 Insertion time: 19:40 Assessment and Plan - Plan 57-year-old female with history of breast cancer, right brachial plexus metastasis, status post breast radiation and chemotherapy, now with generalized seizure and 3 enhancing metastatic deposits within the brain. Planning radiosurgery for brain lesions. [facility] arranging followup for her. She has been loaded with Keppra and we will continue that. She has been loaded with Decadron and we will continue 4q for brain edema. Dr. Ríos to assume neurosurgical management tomorrow. Her son has been at bedside but was out when I rounded on her. SonDakota: [phone]. Other contact (Friend?) Arturo [phone].
--- NOTE | 2018-08-11 12:33 | MG ---
cc: Stephanie Samayoa MD AGE: [age] years old. EEG NUMBER: [id number] REFERRING PHYSICIAN: Minor Ashraf MD With hyperventilation, extubated, photic done. Drowsy, alert, oriented. Admitted as a stroke alert but found to have metastatic disease. Three enhancing brain lesions. The largest is over the left parietal. History of breast cancer and right brachial plexus metastases. MEDICATIONS: Decadron, Keppra. DESCRIPTION OF RECORD: There was some mild artifact, but overall some mild slowing, 6-7 Hz, theta frequency. Variable mild slowing seen. Photic stimulation was done towards the end of the recording with a mild driving response. IMPRESSION: Mild slowing of background, may be due to mild encephalopathy versus residual medicine effect. No epileptiform features. Clinical correlation. Stephanie Samayoa MD DF/jessica , 12:12 PM , 12:16 PM
--- NOTE | 2018-08-11 16:47 | P.PNCC ---
Subjective Subjective Remarks/Hospital Course: This is a 57-year-old female. Date of admission 08/09/2018. Past medical history includes breast cancer, right brachial plexus tumor, prior tobaccoism. Patient was less than her normal state of flux 1530 today. At that time, patient was noted to have due to expressive aphasia. She is able to move her left upper and lower extremity but not right upper extremity due to chronic weakness from brachial plexus surgery.. No facial droop noted. Systolic blood pressure is 178. ED, patient had a seizure requiring intubation. CT brain revealed a 2.4 cm left parietal mass. Stroke alert was called prior to this and CT angiogram of the brain and neck was essentially negative. Neurosurgery was consulted. Recommend MRI brain along with CT chest abdomen pelvis for further workup. Loaded with levetiracetam 1 g and dexamethasone 10 mg x1. We are asked to admit. 08/10: Seen by radiation oncology service scheduled for simulation on Sunday. Patient has a strong family history of diabetes and with the Decadron her sugars are trending upwards. She is converted to a diabetic diet hopefully with better control. Sliding scale insulin coverage as ordered. No seizures and patient is alert and conversant. 08/11: Patient remains seizure free. Scheduled for radiation simulation tomorrow. She is ambulating to the bathroom with minimal difficulty. Blood glucose continues to trend upward. Studies completed and oncology follow-up is arranged. Plan is for simulation set up tomorrow and discharge after. I have talked to the patient and her son, who is at the bedside, and they agree with plan. Objective Vital Signs / I&O: Vital Signs 08/10/18 19:58 08/10/18 20:00 08/10/18 22:40 Temperature 99.1 F 98.1 F Pulse Rate 65 70 78 Respiratory Rate 15 21 18 Blood Pressure 117/58 L 129/60 Pulse Oximetry 96 98 08/11/18 04:00 08/11/18 07:00 08/11/18 07:51 Temperature 98.2 F 98.7 F Pulse Rate 77 77 79 Respiratory Rate 20 12 18 Blood Pressure 140/70 143/72 H Pulse Oximetry 98 97 08/11/18 09:04 08/11/18 11:00 08/11/18 11:07 Temperature 97.6 F Pulse Rate 79 75 Respiratory Rate 12 20 Blood Pressure 147/79 H Pulse Oximetry 98 98 08/11/18 15:00 Temperature Pulse Rate 82 Respiratory Rate 14 Blood Pressure Pulse Oximetry Intake & Output 08/10/18 08/11/18 08/11/18 19:59 06:59 18:59 Intake Total 1070 / 1070 Output Total Balance 1070 / 1070 Weight Intake: IV 1070 / 1070 Diprivan 1000 mg/100 ml Inj 1, 000 mg In 100 ml @ 5 MCG/KG/MIN 3.981 mls/hr IV.CONT TITRATE PRN Rx#:[id number] NS Inj 1,000 ML @ 84 mls/hr IV. 1000 / 1000 CONT .[id number] [facility] Rx#:[id number] fentaNYL 10 mcg/mL Premix Drip 2,500 mcg In 250 ml @ 50 MCG/HR 5 mls/hr IV.SIG TITRATE PRN Rx #:[id number] Keppra Inj 500 MG In NS Inj 100 ML @ 400 mls/hr IV.SIG Q12H [facility] Rx#:[id number] Oral Output: Urine Urine Amount (Catheter) Indwelling Urethral Catheter Other: # Voids Date of Last Bowel Movement 08/10/18 Result Diagrams: 08/10/18 05:50 08/10/18 05:50 Objective Remarks: - Imaging Impressions Head CT 08/09/18 18:04 CONCLUSION: 1. 2.4 cm mass in left parietal lobe with surrounding vasogenic edema. MRI brain with and without contrast is recommended. Report was called by [ Dr. Story to Dr. Lynch at 6:40 PM] Chest X-Ray 08/09/18 18:05 CONCLUSION: Basilar atelectasis. Cardiomegaly. Surgical clips right axillary region. Head CTA 08/09/18 18:05 CONCLUSION: 1. Negative CTA Head. Report was called by [ Dr Story to Dr Samayoa at 646pm] Neck CTA 08/09/18 18:05 CONCLUSION: 1. Negative CTA Carotid. Chest X-Ray 08/09/18 19:27 CONCLUSION: Good placement of the ET tube. Cardiomegaly. Diffuse increased interstitial markings likely related to diffuse processes such as edema. Further increased density at the left base representing either alveolar consolidation, atelectasis and/or left effusion. Exam - Constitutional no acute distress, calm, conversant - Routine HEENT Exam Head: Present: normocephalic, atraumatic Eye: Present: EOMI, PERRL, normal accommodation ENT: Present: mucous membranes moist - Routine Neck Exam Present: supple, full ROM. Airway widely patent, no obstructive noises. - Routine Chest/Breast/Axilla Exam Chest wall: Absent: tenderness Breast: Present: right mastectomy. Absent: tenderness Axillae: Absent: lymphadenopathy - Routine Respiratory Exam Present: Clear, no wheezes or crackles, comfortable respiratory pattern. Absent : accessory muscle use - Routine Cardiovascular Exam Present: RRR, S1, S2. Absent: murmur, JVD. - Routine Abdominal Exam Present: soft, normoactive bowel sounds, no guarding, no tenderness - Routine Extremities Exam Present: edema. Warm, well-perfused. Absent: cyanosis, clubbing - Routine Skin Exam Present: intact - Routine Neurological Exam Present: Motor and sensory grossly intact with the exception of the paretic right upper extremity. absent: alert, oriented X3 (Patient had right sided brachial plexus resection for malignancy several years ago) Assessment and Plan - Assessment and Plan Plan: Neuro/Psych: 2.4 cm left parietal brain mass Seizure disorder CT brain revealed 2.4 cm left parietal mass with edema. MRI completed Evaluated by neurosurgery Dr. Izquierdo. CT angiogram of the head and neck negative Loaded with levetiracetam 1 g followed by 500 mg twice daily Dexamethasone 10 mg IV x1 followed by 4 mg every 6 hours Encephalopathy in the ED has resolved; she is alert oriented and speech is clear CV: Resp: Acute respiratory failure Resolved GI: Diabetic diet : Straight catheterization as needed Endo: Sliding scale insulin aspart insulin to maintain euglycemia while on steroids Check TSH Renal: Creatinine currently within normal limits Monitor urine output Accurate I's and O's Heme: Breast cancer status post right mastectomy Hemoglobin is currently 17. Recheck in a.m. FEN: Acute hypokalemia Replace electrolytes as clinically indicated MSK: Right brachial plexus injury status post right mastectomy Access -Utilize peripheral IV. Central line if indicated Prophylaxis \ -GI -pantoprazole -DVT -SCD/pharmacological prophylaxis contraindicated with intracranial mass Overall impression: This patient arrived with new seizures likely related to a new brain mass. On MRI 3 enhancing brain lesions are discovered. Arrangements have been made for simulation with radiation oncology tomorrow Sunday and the patient may go home afterwards. We will follow her glucoses closely in the interim, continue her steroids and AED, and increase her mobilization. Outpatient follow-up has been arranged.
[2018-08-11] MEDS: Pantoprazole Inj 40 MG Vial IV.PUSH SCH (21:19)
[2018-08-12] MEDS: Insulin NovoLOG Aspart Correctional Sugar Inj SQ SCH ×4 (00:10→18:21)
--- NOTE | 2018-08-12 00:24 | ECG ---
Date Performed: 08/09/2018 Time Performed: 18:55:26 PTAGE: 57 years EKG: SINUS TACHYCARDIA INTRAVENTRICULAR CONDUCTION DELAY POSSIBLE ANTERIOR MYOCARDIAL INFARCTION POSSIBLE INFERIOR MYOCARDIAL INFARCTION ABNORMAL ECG PREVIOUS TRACING : 04/25/2018 08.29 Compared to previous tracing, rate has increased DOCTOR: Hemal Manzo Interpretating Date/Time 08/12/2018 00:23:57
[2018-08-12] MEDS: Sod Chloride 0.9% Inj 1,000 ML IV.CONT SCH (03:37)
[2018-08-12] MEDS: Chlorhexidine Gluconate 2% 1 Pack (2 Cloths) TOPICAL SCH (05:28)
[2018-08-12] MEDS: Oral Hygiene Kit OROPHARYNG SCH ×4 (05:28→18:04)
[2018-08-12] MEDS: Senna/Docusate Sodium 8.6/50 MG Tablet PO SCH (10:23)
[2018-08-12] MEDS: Artificial Tears Opth Drops 15 ML Bottle EACH EYE SCH ×2 (10:25→17:56)
--- NOTE | 2018-08-12 10:41 | P.DS ---
Date of admission: 08/09/18 19:47 Primary care physician: UNKNOWN Brief History from admission: HPI as documented by the admitting provider This is a 57-year-old female. Date of admission 08/09/2018. Past medical history includes breast cancer, right brachial plexus tumor, prior tobaccoism. Patient was less than her normal state of flux 1530 today. At that time, patient was noted to have due to expressive aphasia. She is able to move her left upper and lower extremity but not right upper extremity due to chronic weakness from brachial plexus surgery.. No facial droop noted. Systolic blood pressure is 178. ED, patient had a seizure requiring intubation. CT brain revealed a 2.4 cm left parietal mass. Stroke alert was called prior to this and CT angiogram of the brain and neck was essentially negative. Neurosurgery was consulted. Recommend MRI brain along with CT chest abdomen pelvis for further workup. Loaded with levetiracetam 1 g and dexamethasone 10 mg x1. We are asked to admit. Patient update on day of discharge: Patient reports she is feeling well today. No further seizures. Eager to go home. DS: Medications - Discharge Medications Prescriptions: dexamethasone [Decadron] 2 mg/m2 PO Q8H #21 tab levetiracetam 500 mg PO BID #28 tab DS: Summary Hospital Course: 57-year-old female who arrives to the emergency room with seizures likely related to a new brain mass. The patient was intubated and admitted to the ICU. She was subsequently extubated. On MRI 3 enhancing brain lesions are discovered. Arrangements have been made for simulation with radiation oncology. The patient is to continue on steroids and antiepileptics. She will follow-up outpatient with radiation oncology, neurosurgery, and oncology. Treatment course detailed below: 2.4 cm left parietal brain mass Seizure disorder CT brain revealed 2.4 cm left parietal mass with edema. MRI completed Evaluated by neurosurgery Dr. Izquierdo. CT angiogram of the head and neck negative Loaded with levetiracetam 1 g followed by 500 mg twice daily Dexamethasone 10 mg IV x1 followed by 4 mg every 6 hours Encephalopathy in the ED has resolved; she is alert oriented and speech is clear Acute respiratory failure Resolved Acute hypokalemia Replaced electrolytes Right brachial plexus injury status post right mastectomy: Stable - Time Spent with Patient Total time spent providing and/or coordinating discharge services: Less than 30 minutes - Quality: VTE Deep Vein Thrombosis/Pulmonary Embolism Present on Admission: No Exam Vital signs: Vital Signs 08/11/18 11:00 08/11/18 11:07 08/11/18 15:00 Temperature 97.6 F Pulse Rate 79 75 82 Respiratory Rate 12 20 14 Blood Pressure 147/79 H Pulse Oximetry 98 08/11/18 16:00 08/11/18 20:00 08/11/18 20:31 Temperature 98.9 F 98.3 F Pulse Rate 73 65 61 Respiratory Rate 20 20 22 Blood Pressure 105/75 145/63 H Pulse Oximetry 93 L 95 95 08/12/18 00:00 08/12/18 00:01 08/12/18 04:00 Temperature 98.0 F 98.1 F Pulse Rate 80 80 88 Respiratory Rate 20 20 20 Blood Pressure 150/78 H 158/79 H Pulse Oximetry 96 95 08/12/18 04:20 08/12/18 08:13 Temperature Pulse Rate 66 78 Respiratory Rate 18 16 Blood Pressure Pulse Oximetry 98 Intake & Output 08/11/18 08/12/18 08/12/18 18:59 06:59 18:59 Intake Total 2345 / 2345 1465 / 1465 Output Total 1400 / 1400 Balance 945 / 945 1465 / 1465 Weight 126 kg Intake: IV 1175 / 1175 1105 / 1105 NS Inj 1,000 ML @ 84 mls/hr IV. 1000 / 1000 1000 / 1000 CONT .[id number] MACARIO Rx#:[id number] Keppra Inj 500 MG In NS Inj 100 105 / 105 105 / 105 ML @ 400 mls/hr IV.SIG Q12H MACARIO Rx#:[id number] Oral 1170 / 1170 360 / 360 Output: Urine 1400 / 1400 Other: # Voids 2 Date of Last Bowel Movement 08/10/18 08/10/18 # Bowel Movements 0 Narrative: GENERAL: This is a well-nourished, well-developed patient, in no apparent distress. CARDIOVASCULAR: Normal rate and regular rhythm without murmurs, gallops, or rubs. RESPIRATORY: Good respiratory efforts. Breath sounds equal and clear to auscultation bilaterally. GASTROINTESTINAL: Abdomen soft, non-tender, non-distended. Normal active bowel sounds MUSCULOSKELETAL: Extremities without cyanosis, or edema. NEURO: Alert & Oriented x4 to person, place, time, situation. Chronic right upper extremity paresis. PSYCH: Appropriate mood and affect. Results Procedures completed during hospitalization: See summary. Labs on day of discharge: Labs from last 24 hours 08/12/18 08/12/18 08/11/18 05:26 00:09 17:18 POC Glucose 135 H 126 H 162 H 08/11/18 11:21 POC Glucose 192 H - Impressions ITS Impressions Head CT 08/09/18 18:04 CONCLUSION: 1. 2.4 cm mass in left parietal lobe with surrounding vasogenic edema. MRI brain with and without contrast is recommended. Report was called by [ Dr. Story to Dr. Lynch at 6:40 PM] Head CTA 08/09/18 18:05 CONCLUSION: 1. Negative CTA Head. Report was called by [ Dr Story to Dr Samayoa at 646pm] Neck CTA 08/09/18 18:05 CONCLUSION: 1. Negative CTA Carotid. Chest X-Ray 08/09/18 19:27 CONCLUSION: Good placement of the ET tube. Cardiomegaly. Diffuse increased interstitial markings likely related to diffuse processes such as edema. Further increased density at the left base representing either alveolar consolidation, atelectasis and/or left effusion. Abdomen/Pelvis CT 08/09/18 19:36 CONCLUSION: 1. Stable exam appearance. 2. Nonspecific sclerotic focus involving L3 vertebral body Chest CT 08/09/18 19:36 CONCLUSION: Consolidative changes in the posterior lung bases. Head MRI 08/09/18 19:36 CONCLUSION: At least 3 enhancing brain lesions as above. Discharge Plan - Discharge Disposition Patient Disposition: 01 Discharge Home - Discharge Condition Condition: Good - Discharge Order Discharge Orders: Discharge Order (Routine); Ordered 08/12/18 Ordered By: Judy Vang - Physicians Team Primary Care Provider: UNKNOWN, Attending Provider: Alex Thompson Other Providers: Stephanie Samayoa MD ; Allie Arredondo MD ; Cirilo Agudelo MD ; [employer] ; Dat Izquierdo MD
--- NOTE | 2018-08-12 11:55 | P.PNONC ---
Subjective Interval history: Afebrile. Patient sitting at bedside, awaiting radiation simulation today. She has no complaints at this time denies any nausea vomiting or diarrhea. Denies pain. She is anxious about claustrophobia in regards to radiation simulation, however she has spoke with Dr. soto in regards to this and feels more comfortable. Objective Vital Signs/Intake & Output: Vital Signs 08/11/18 15:00 08/11/18 16:00 08/11/18 20:00 Temperature 98.9 F 98.3 F Pulse Rate 82 73 65 Respiratory Rate 14 20 20 Blood Pressure 105/75 145/63 H Pulse Oximetry 93 L 95 08/11/18 20:31 08/12/18 00:00 08/12/18 00:01 Temperature 98.0 F Pulse Rate 61 80 80 Respiratory Rate 22 20 20 Blood Pressure 150/78 H Pulse Oximetry 95 96 08/12/18 04:00 08/12/18 04:20 08/12/18 08:13 Temperature 98.1 F Pulse Rate 88 66 78 Respiratory Rate 20 18 16 Blood Pressure 158/79 H Pulse Oximetry 95 98 08/12/18 11:03 Temperature Pulse Rate 70 Respiratory Rate 18 Blood Pressure Pulse Oximetry Intake & Output 08/11/18 08/12/18 08/12/18 18:59 06:59 18:59 Intake Total 2345 / 2345 1465 / 1465 Output Total 1400 / 1400 Balance 945 / 945 1465 / 1465 Weight 126 kg Intake: IV 1175 / 1175 1105 / 1105 NS Inj 1,000 ML @ 84 mls/hr IV. 1000 / 1000 1000 / 1000 CONT .[id number] SKY Rx#:[id number] Keppra Inj 500 MG In NS Inj 100 105 / 105 105 / 105 ML @ 400 mls/hr IV.SIG Q12H SKY Rx#:[id number] Oral 1170 / 1170 360 / 360 Output: Urine 1400 / 1400 Other: # Voids 2 Date of Last Bowel Movement 08/10/18 08/10/18 08/09/18 # Bowel Movements 0 Result Diagrams: 08/10/18 05:50 08/10/18 05:50 Laboratory Results: Laboratory Results - last 24 hr 08/11/18 08/12/18 08/12/18 17:18 00:09 05:26 POC Glucose 162 H 126 H 135 H Medications: Active Medications Generic Name Dose Route Start Last Admin Trade Name Freq PRN Reason Stop Dose Admin Albuterol 1 ampul 08/10/18 00:00 08/12/18 11:02 Duoneb Neb (Sky) NEB 1 ampul Q4HR NEB SKY Administration Artificial Tears 1 drop 08/09/18 20:29 08/12/18 10:25 Tears Naturale Opth Drops EACH EYE Not Given TID [facility] Chlorhexidine Gluconate 15 ml 08/10/18 08:00 08/11/18 21:20 Peridex 0.12% Oral Kit OROPHARYNG Not Given BID@0800,1999 [facility] Chlorhexidine Gluconate 3 pack 08/10/18 04:00 08/12/18 05:28 Chlorhexidine 2% Cloth TOPICAL 08/15/18 03:59 Not Given DAILY@0400 [facility] Dexamethasone Sodium Phosphate 4 mg 08/10/18 06:00 08/12/18 05:27 Decadron Inj IV.PUSH 4 mg Q6HR SKY Administration Fentanyl 2,500 mcg in 250 mls @ 5 mls/hr 08/09/18 20:24 08/10/18 21:40 Fentanyl 10 Mcg/Ml Premix Drip IV.SIG Infused TITRATE PRN Titration Per Protocol Protocol 50 MCG/HR Sodium Chloride 1,000 mls @ 84 mls/hr 08/09/18 21:00 08/12/18 03:37 Ns Inj IV.CONT 84 mls/hr .[id number] SKY Administration Propofol 1,000 mg in 100 mls @ 3.981 mls/hr 08/09/18 20:24 08/10/18 21:40 Diprivan 1000 Mg/100 Ml Inj IV.CONT Infused TITRATE PRN Titration Per Protocol Protocol 5 MCG/KG/MIN Levetiracetam 500 mg/ Sodium 105 mls @ 400 mls/hr 08/10/18 05:00 08/12/18 06: 12 Chloride IV.SIG Infused Q12H SKY Infusion Insulin Aspart 0 unit 08/10/18 06:00 08/12/18 05:29 Novolog Insulin Correctional Sugar Inj SQ Not Given Q6HR [facility] Protocol Miscellaneous Medication 1 each 08/10/18 00:00 08/12/18 05:28 OROPHARYNG Not Given 0000,0400,1200,1600 [facility] Pantoprazole Sodium 40 mg 08/09/18 21:00 08/11/18 21:19 Protonix Inj IV.PUSH 40 mg Q24H SKY Administration Senna/Docusate Sodium 1 tab 08/09/18 21:00 08/12/18 10:23 Jen-Colace PO 1 tab BID SKY Administration Sodium Chloride 2 ml 08/09/18 21:00 08/12/18 10:23 Ns Flush IV.FLUSH 2 ml BID SKY Administration Sodium Chloride 2 ml 08/09/18 20:24 08/10/18 21:01 Ns Flush IV.FLUSH 2 ml PRN PRN Administration FLUSH AFTER USING IV ACCESS Objective Remarks: GENERAL: Well-nourished, well-developed patient. SKIN: Warm and dry. HEAD: Normocephalic. EYES: No scleral icterus. No injection or drainage. NECK: Supple, trachea midline. CARDIOVASCULAR: Regular rate and rhythm without murmurs. RESPIRATORY: Breath sounds equal bilaterally. No accessory muscle use. GASTROINTESTINAL: Abdomen soft, non-tender, nondistended. EXTREMITIES: No cyanosis, or edema. MUSCULOSKELETAL: Adequate muscle tone. NEUROLOGICAL: No obvious focal deficit. Awake, alert, and oriented x3. Rt arm paralysis. PSYCHIATRIC: Appropriate mood and affect; insight and judgment normal. Assessment/Plan - Plan 57-year-old female with metastatic HER-2/bowen over expressing breast cancer who presents with acute mental status change with TRAM INSPECTOR metastatic disease 1. Continues on Decadron and Keppra. 2. Patient has appointment with Dr. Vanessa on of next week for Herceptin and pertuzumab. 3. Monitor for seizures, AMS. 4. Pending radiation simulation for cranial radiation today. - Attending Statement The exam, history, and the medical decision-making described in the above note were completed with the assistance of the mid-level provider. I reviewed and agree with the findings presented. I attest that I had a [id number] encounter with the patient on the same day, and personally performed and documented my assessment and findings in the medical record. 57 yoF with metastatic HER2 positive breast cancer admitted with new TRAM INSPECTOR metastases. She is on steroid therapy and has been seen by Dr. Soto in radiation oncology. She has follow up on with primary oncologist Dr. Vanessa.
[2018-08-12] MEDS: Chlorhexidine 0.12% Oral Kit 15 ML UDC OROPHARYNG SCH (13:22)
[2018-08-12] MEDS ORDERED: Heparin Central Flush 100 UNIT/ML 5 ML Vial IV.FLUSH PRN ×2 (18:41)
== END 2018-08-12 19:30 | disposition home or self-care (01) ==
LOC: NEPC 17:14 → NEDA 19:47 → HIMC 23:50 → N03 08-10 03:15 → HCIN 08-10 22:22
PROVIDERS: ADMIT Hospitalist; ATTEND Hospitalist

== ENCOUNTER 2018-10-10 17:39 | Inpatient (IN) ==
--- NOTE | 2018-10-10 18:12 | ED ---
HPI General Chief Complaint: Shortness of Breath/Dyspnea Stated Complaint: SoB Time Seen by Provider: 10/10/18 17:40 Source: patient Mode of arrival: EMS Limitations: no limitations History of Present Illness The patient is a 57-year-old female who presents to the emergency department via EMS for shortness of breath. The patient has a history of stage IV breast cancer with known metastasis, previous metastasis to the brachial plexus and recent metastasis to the brain. The patient underwent radiation therapy by Dr. Agudelo and was placed on Decadron. The patient is currently followed by her medical oncologist, Dr. Vanessa. The patient receives chemotherapy every 3 weeks, is next scheduled for chemotherapy on October 17, 2018. The patient does complain of bilateral lower extremity edema secondary to inactivity and Decadron. The patient now complains of increasing shortness of breath since [place], and intermittent but progressive, worse with lying supine. The patient denies any history of COPD, congestive heart failure, pulmonary embolism, or DVT. The patient notes minimal cough, denies any associated fever, chills, or sweats. The patient's primary physician is Dr. Crain. EMS states that the patient's oxygen saturation on room air at home was 82%, came up to 96% after being placed on a nonrebreather. The patient is not on home oxygen. MD Complaint: Reports shortness of breath Onset (ago): day(s) Context: Reports other Severity: severe Consistency/Duration: progressively worsening Relieving factors: oxygen Exacerbating factors: lying flat Known history of: Reports other Treatment prior to arrival: Reports oxygen Related Data Home oxygen amount: none Previous Rx's Medication Instructions Recorded dexamethasone [Decadron] 2 mg/m2 PO Q8H #21 tab 08/12/18 levetiracetam 500 mg PO BID #28 tab 08/12/18 Allergies Allergy/AdvReac Type Severity Reaction Status Date / Time ketoconazole AdvReac Intermediate Verified 10/25/17 10:58 UNKNOWN NARCOTIC Allergy Intermediate Rash Uncoded 08/10/15 13:02 Review of Systems ROS: all other systems reviewed are negative [facility] Family History Family History Other Family history unknown Social History Social History Substance History: No History of Abuse Second Hand Smoke Exposure: No Smoking Status: Never smoker How Often Do You Have a Drink Containing Alcohol: Never Exam Narrative Exam Narrative: GENERAL: Awake, alert, pleasant 57-year-old female appears her stated age and is in moderate respiratory distress. The patient is only able to speak in 3-4 word sentences. SKIN: Focused skin assessment warm/dry. HEAD: Atraumatic. Normocephalic. EYES: Pupils equal and round. No scleral icterus. No injection or drainage. ENT: No nasal bleeding or discharge. Mucous membranes pink and moist. NECK: Trachea midline. No JVD. CARDIOVASCULAR: Regular, tachycardic with a heart rate of 100. RESPIRATORY: Tachypnea with a respiratory rate of 26. Diminished breath sounds in the bases bilaterally. GASTROINTESTINAL: Abdomen soft, obese, no rebound tenderness. Tinea corporis noted under the large pannus. MUSCULOSKELETAL: No obvious deformities. Bilateral lower extremity pitting edema from the mid tib-fib inferiorly. NEUROLOGICAL: Awake and alert. No obvious cranial nerve deficits. Motor grossly within normal limits. Normal speech. Nonfocal. Oriented x4. PSYCHIATRIC: Appropriate mood and affect; insight and judgment normal. Course Initial Documented Vital Signs Pulse Oximetry 98 10/10/18 17:58 Last Documented Vital Signs Pulse Rate 100 H 10/10/18 18:35 Respiratory Rate 22 10/10/18 18:35 Blood Pressure 160/78 H 10/10/18 18:35 Pulse Oximetry 99 10/10/18 18:35 Sign Out Sign Out Data: Patient Sign Out occurred on 10/10/18 at 19:27. Patient's care was discussed, and care was transferred from Isaiah Durand MD to Kathleen Doran MD. Sign Out Comment: 57-year-old female with a history of stage IV breast cancer currently getting chemotherapy every [address] Vanessa, with a history of metastasis to the brain in August requiring radiation therapy and Decadron. Decadron is being weaned currently. Patient notes increasing shortness of breath since [place], O2 sat at home was 80-82% on room air, patient is not on oxygen at home and denies any history of COPD/CHF. CT pulmonary angiogram and BNP are pending. Patient's primary physician is Dr. Crain with the residents, patient will require admission. If CT pulmonary angiogram is positive, I would discuss anticoagulation with neurosurgery prior to starting anticoagulation. Last updated by Isaiah Durand MD at 10/10/18 18:56 Post-Handoff Eval: Patient signed out to me at [address] Durand, please see previous notes for further details. She is awaiting PE study to rule out PE, with plans to admit. Her BNP is fairly unremarkable but her chest x-ray does show some mild pulmonary edema. Her CTA did not show any signs of PE. At this point, she was given a small dose of Lasix. Plan would be to admit her for further evaluation of this new issue. The case was discussed with Dr. Crain for admission. Medical Decision Making MDM Narrative Medical decision making narrative: The port was accessed, labs are drawn and sent, and the patient was placed on cardiac telemetry monitoring and continuous pulse oximetry monitoring. EKG was ordered and interpreted. Chest x-ray was obtained. The patient was on nonrebreather 15 L with O2 saturation in the mid 90s. Medical Screen Exam Complete: Yes Emergency Medical Condition: Yes Differential Diagnosis Differential Diagnosis: Differential diagnosis includes congestive heart failure , pulmonary edema, pneumonia, pleural effusion, pulmonary embolism, cardiomyopathy. Medical Records Medical records reviewed: Yes I reviewed the patient's medical records. Lab Data Lab results reviewed: Yes I reviewed the patient's lab results. Result diagrams: 10/10/18 18:00 10/10/18 18:00 Lab Results 10/10/18 10/10/18 10/10/18 Range/Units 18:00 18:00 18:00 WBC 6.9 (4.0-11.0) th/mm3 RBC 3.77 L (4.00-5.30) mil/mm3 Hgb 12.3 (11.6-15.3) gm/dL Hct 36.5 (35.0-46.0) % MCV 96.7 (80.0-100.0) fL MCH 32.6 (27.0-34.0) pg MCHC 33.7 (32.0-36.0) % RDW 16.1 (11.6-17.2) % Plt Count 188 (150-450) th/mm3 MPV 8.4 (7.0-11.0) fL Prelim Diff (Auto) Slide review pending Neut % (Auto) 51.9 (16.0-70.0) % Lymph % (Auto) 40.0 (9.0-44.0) % [place] % (Auto) 7.0 (0.0-8.0) % Eos % (Auto) 0.4 (0.0-4.0) % Baso % (Auto) 0.7 (0.0-2.0) % Neut # (Auto) 3.8 (1.8-7.7) th/mm3 Lymph # (Auto) 3.0 (1.0-4.8) th/mm3 [place] # (Auto) 0.5 (0.0-0.9) th/mm3 Eos # (Auto) 0.0 (0.0-0.4) th/mm3 Baso # (Auto) 0.0 (0.0-0.2) th/mm3 WBC Differential Manual diff final Seg Neuts % (Manual) 58 (16-70) % Band Neuts % (Manual) 3 (0-6) % Lymphocytes % (Manual) 28 (9-44) % Monocytes % (Manual) 5 (0-8) % Basophils % (Manual) 1 (0-2) % Metamyelocytes % (Man) 4 H (0-1) % Myelocytes % (Man) 1 H (0-0) % Abs Neuts (Manual) 4.9 (1.8-7.7) th/mm3 Nucleated RBCs/100 WBC 8 H (0-0) /100 WBC Differential Comment . Platelet Estimate Normal (Normal) Platelet Morphology Normal (Normal) Polychromasia 2.5 H (0.0-1.9) % PT 10.8 (9.8-11.6) sec INR 1.1 Ratio APTT 22.9 L (23.4-31.7) sec Puncture Site Patient Temperature O2 Saturation (90-100) % ABG pH (7.380-7.420) ABG pCO2 (38-42) mmHg ABG pO2 (61-120) mmHg ABG HCO3 (22-26) mmol/L ABG O2 Content (12.0-20.0) Vol % ABG Base Excess (-2-2) mmol/L ABG Methemoglobin (0-2) % Tashi Test Hemoglobin (12.0-16.0) G/DL Carboxyhemoglobin (0-4) % O2 Delivery Device Liter Flow L/M Inspired O2 % Critical Value Sodium 137 (136-145) meq/L Potassium 3.8 (3.5-5.1) meq/L Chloride 100 (98-107) meq/L Carbon Dioxide 30.2 (21.0-32.0) meq/L Anion Gap 7 (5-15) meq/L BUN 20 H (7-18) mg/dL Creatinine 0.65 (0.50-1.00) mg/dL Estimated GFR Greater than 89 (>89) mL/min Random Glucose 128 H (74-106) mg/dL Calcium 8.6 (8.5-10.1) mg/dL Magnesium (1.5-2.5) mg/dL Total Bilirubin 0.8 (0.2-1.0) mg/dL AST 35 (15-37) U/L ALT 73 H (10-53) U/L Alkaline Phosphatase 91 (45-117) U/L Total Creatine Kinase (26-192) U/L Troponin I 0.05 (0.02-0.05) ng/mL B-Natriuretic Peptide (0-100) pg/mL Total Protein 6.4 (6.4-8.2) g/dL Albumin 2.7 L (3.4-5.0) g/dL 10/10/18 10/10/18 10/10/18 Range/Units 18:00 18:00 18:26 WBC (4.0-11.0) th/mm3 RBC (4.00-5.30) mil/mm3 Hgb (11.6-15.3) gm/dL Hct (35.0-46.0) % MCV (80.0-100.0) fL MCH (27.0-34.0) pg MCHC (32.0-36.0) % RDW (11.6-17.2) % Plt Count (150-450) th/mm3 MPV (7.0-11.0) fL Prelim Diff (Auto) Neut % (Auto) (16.0-70.0) % Lymph % (Auto) (9.0-44.0) % [place] % (Auto) (0.0-8.0) % Eos % (Auto) (0.0-4.0) % Baso % (Auto) (0.0-2.0) % Neut # (Auto) (1.8-7.7) th/mm3 Lymph # (Auto) (1.0-4.8) th/mm3 [place] # (Auto) (0.0-0.9) th/mm3 Eos # (Auto) (0.0-0.4) th/mm3 Baso # (Auto) (0.0-0.2) th/mm3 WBC Differential Seg Neuts % (Manual) (16-70) % Band Neuts % (Manual) (0-6) % Lymphocytes % (Manual) (9-44) % Monocytes % (Manual) (0-8) % Basophils % (Manual) (0-2) % Metamyelocytes % (Man) (0-1) % Myelocytes % (Man) (0-0) % Abs Neuts (Manual) (1.8-7.7) th/mm3 Nucleated RBCs/100 WBC (0-0) /100 WBC Differential Comment Platelet Estimate (Normal) Platelet Morphology (Normal) Polychromasia (0.0-1.9) % PT (9.8-11.6) sec INR Ratio APTT (23.4-31.7) sec Puncture Site Left radial Patient Temperature 98.6 O2 Saturation 96 (90-100) % ABG pH 7.50 H (7.380-7.420) ABG pCO2 37 L (38-42) mmHg ABG pO2 210 H (61-120) mmHg ABG HCO3 29 H (22-26) mmol/L ABG O2 Content 16.8 (12.0-20.0) Vol % ABG Base Excess 5.3 H (-2-2) mmol/L ABG Methemoglobin 1.2 (0-2) % Tashi Test Present Hemoglobin 12.1 (12.0-16.0) G/DL Carboxyhemoglobin 2.5 (0-4) % O2 Delivery Device Nrbr Liter Flow 15.00 L/M Inspired O2 100 % Critical Value No Sodium (136-145) meq/L Potassium (3.5-5.1) meq/L Chloride (98-107) meq/L Carbon Dioxide (21.0-32.0) meq/L Anion Gap (5-15) meq/L BUN (7-18) mg/dL Creatinine (0.50-1.00) mg/dL Estimated GFR (>89) mL/min Random Glucose (74-106) mg/dL Calcium (8.5-10.1) mg/dL Magnesium 1.6 (1.5-2.5) mg/dL Total Bilirubin (0.2-1.0) mg/dL AST (15-37) U/L ALT (10-53) U/L Alkaline Phosphatase (45-117) U/L Total Creatine Kinase 30 (26-192) U/L Troponin I (0.02-0.05) ng/mL B-Natriuretic Peptide 147 H (0-100) pg/mL Total Protein (6.4-8.2) g/dL Albumin (3.4-5.0) g/dL Imaging Data Attestation: I personally reviewed and interpreted this imaging study as follows : Radiologist's impression: Chest X-Ray 10/10/18 17:58 CONCLUSION: 1. Cardiomegaly with mild positive fluid balance. Chest CTA 10/10/18 18:35 CONCLUSION: 1. No CT evidence for pulmonary artery embolism as questioned. 2. Cardiomegaly with mild pulmonary edema pattern. ECG Data EKG Prior to Arrival: No Attestation: I personally reviewed and interpreted this ECG as follows: Interpretation: EKG reveals normal sinus rhythm with a rate of 91. Intraventricular conduction delay with QRS of 116 ms. Q waves in lead III with inverted T wave. Discharge Plan Discharge Order Discharge Orders: ED Use Only Admit Order (Routine); Ordered 10/10/18 Ordered By: Kathleen Doran Discharge Details Anticipated Discharge Date: 10/10/18 Physicians Team ED Provider: Kathleen Doran Primary Care Provider: Susie Jorge Rxs /Orders / Referrals /Forms Prescriptions: No Action levetiracetam 500 mg Tablet 500 mg PO BID Qty: 28 RF: 0 dexamethasone [Decadron] 4 mg Tablet 2 mg/m2 PO Q8H Qty: 21 RF: 0 Status ED Status: Pending Admission
[2018-10-10 18:29] LABS: Baso % (Auto) 0.7 % (0.0-2.0); Eos % (Auto) 0.4 % (0.0-4.0); Hematocrit 36.5 % (35.0-46.0); Hemoglobin 12.3 gm/dL (11.6-15.3); Mean Corpuscular HGB Conc 33.7 % (32.0-36.0); Mean Corpuscular Hemoglobin 32.6 pg (27.0-34.0); Mean Corpuscular Volume 96.7 fL (80.0-100.0); Mean Platelet Volume 8.4 fL (7.0-11.0); Mono # (Auto) 0.5 th/mm3 (0.0-0.9); Neut # (Auto) 3.8 th/mm3 (1.8-7.7); Neut % (Auto) 51.9 % (16.0-70.0); Platelet Count 188 th/mm3 (150-450); Red Blood Count 3.77 mil/mm3 (4.00-5.30); Red Cell Distribution Width 16.1 % (11.6-17.2)
[2018-10-10 18:39] LABS: ABG Base Excess 5.3 mmol/L (-2-2); ABG PCO2 37 mmHg (38-42); ABG PO2 210 mmHg (61-120)
[2018-10-10 18:43] LABS: Activated Partial Thrombo Time 22.9 sec (23.4-31.7); INR 1.1 Ratio; Prothrombin Time 10.8 sec (9.8-11.6)
[2018-10-10 18:47] LABS: Albumin 2.7 g/dL (3.4-5.0); Anion Gap 7 meq/L (5-15); Aspartate Aminotransferase 35 U/L (15-37); Blood Urea Nitrogen 20 mg/dL (7-18); Calcium 8.6 mg/dL (8.5-10.1); Carbon Dioxide 30.2 meq/L (21.0-32.0); Chloride 100 meq/L (98-107); Glomerular Filtration Rate Greater Than 89 mL/min (>89); Glucose,Random 128 mg/dL (74-106); Potassium 3.8 meq/L (3.5-5.1); Sodium 137 meq/L (136-145)
[2018-10-10 18:48] LABS: Alanine Aminotransferase 73 U/L (10-53)
[2018-10-10 18:52] LABS: Alkaline Phosphatase 91 U/L (45-117); Total Protein 6.4 g/dL (6.4-8.2); Troponin I 0.05 ng/mL (0.02-0.05)
--- NOTE | 2018-10-10 18:54 | XR ---
EXAM DATE: 10/10/2018 6:40 PM EST AGE/SEX: 57 years / Female INDICATIONS: Patient has continually gotten short of breath since October 01. CLINICAL DATA: This is the patient's initial encounter. Patient reports that signs and symptoms have been present for 1 week and indicates a pain score of 4/10. MEDICAL/SURGICAL HISTORY: . Carcinoma, breast. Mastectomy, right carcinoma brain and bone . p ort placement ; rt mastectomy COMPARISON: [facility], CHEST 1V SINGLE AP, 08/09/2018. . FINDINGS: Mild diffuse interstitial prominence. Cardiac silhouette is mildly enlarged with indistinct central p ulmonary vascularity. Stable left subclavian [id number]. Remainder of exam is unchanged. CONCLUSION: 1. Cardiomegaly with mild positive fluid balance. Electronically signed by: Pk Kumar MD Board Certified Radiologist 10/10/2018 6:52 PM EST
[2018-10-10 19:11] LABS: Magnesium 1.6 mg/dL (1.5-2.5)
[2018-10-10] MEDS ORDERED: Morphine Inj 4 MG/ML Vial IV.PUSH ONE (19:26)
[2018-10-10 19:28] LABS: Lymphocytes 28 % (9-44); Metamyelocytes 4 % (0-1); Monocytes 5 % (0-8); Myelocytes 1 % (0-0); Tallied Nucleated RBC 8 (0-0)
[2018-10-10 19:32] LABS: White Blood Count 6.9 th/mm3 (4.0-11.0)
[2018-10-10 19:35] LABS: Polychromasia 2.5 % (0.0-1.9)
[2018-10-10 19:37] LABS: Platelet Estimate Normal (Normal); Platelet Morphology Normal (Normal)
--- NOTE | 2018-10-10 20:10 | CT ---
EXAM DATE: 10/10/2018 8:05 PM EST AGE/SEX: 57 years / Female INDICATIONS: Shortness of breath. CLINICAL DATA: This is the patient's initial encounter. Patient reports that signs and symptoms have been present for 1 day and indicates a pain score of 0/10. MEDICAL/SURGICAL HISTORY: Metastatic disease. Carcinoma, breast. Mastectomy, right. RADIATION DOSE: 10.83 CTDI (mGy) COMPARISON: [facility] [place], CT CHEST W CONTRAST, 08/09/2018. . TECHNIQUE: Volumetric scanning was performed using a multi-row detector CT scanner during bolus infu reed of 73 ml Omnipaque 350 (iohexol) nonionic water-soluble contrast as a single exam dose. The torsten a was post processed with a variety of visualization algorithms including full volume maximum intensi ty projection and sliding thin slab reformation. Using automated exposure control and adjustment of the mA and/or kV according to patient size, radiation dose was kept as low as reasonably achievable t o obtain optimal diagnostic quality images. DICOM format image data is available electronically for review and comparison. FINDINGS: Pulmonary Arteries: No filling defects are seen in the pulmonary arteries through the segmental vess els. The main pulmonary artery is normal in diameter. Lung: Diffuse groundglass opacities bilaterally with mild diffuse interstitial prominence. Pleura: No effusion, significant pleural thickening or pneumothorax. Mediastinum: Cardiac silhouette is mildly enlarged without pericardial effusion. No significant medi astinal adenopathy. Osseous Structures: No abnormal focal lytic or blastic bony lesions. Other: Visualized upper abdomen demonstrates diffusely decreased hepatic attenuation. CONCLUSION: 1. No CT evidence for pulmonary artery embolism as questioned. 2. Cardiomegaly with mild pulmonary edema pattern. Electronically signed by: Pk Kumar MD Board Certified Radiologist 10/10/2018 8:08 PM EST
[2018-10-10] MEDS ORDERED: Acetaminophen 325 MG Tablet PO PRN (21:36)
--- NOTE | 2018-10-10 22:54 | P.HPIM ---
History of Present Illness Primary Care Physician: Susie Jorge MD History from patient, ER physician communication, and review of medical records. Patient is quite dyspneic at the time of my examination. However she is awake alert oriented x4 and is able to history give history by answering questions in short sentences. Patient reported that she came to hospital because she has been short of breath for the past 3-4 days. Denies fever. Denies cough. She reports that she is on Decadron at home secondary to her brain metastasis. And this this Decadron dose has been weaned off and she is now taking only half a tablet once a day. She has been having bilateral lower extremity swelling and she attributed this to the Decadron use. However she reports that the right side is also bigger than the left. Patient denies any chest pain/palpitations/dizziness/syncopal episodes. Denies any nausea vomiting. However she does have nausea particularly after chemotherapy. Denies any abdominal pain. Denies any urinary burning or pain on urination or frequent urination. She reports that she does have diarrhea however it varies and depending on her chemotherapy. This has been chronic. While in emergency room, patient was quite dyspneic and the ER physician had placed her on nonrebreather. Her further workup in ER revealed pulmonary congestion on chest x-ray and she was given Lasix 20 mg IV in ER. Per records, patient was saturating 89% on room air. 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 Status post right mastectomy in August 2015. Status post radiation therapy 30 rounds at that time. Recurrence and metastasis of this right breast cancer which was diagnosed in October 2017 when they found tumor on the brachial plexus. Currently on chemotherapy. Last dose was 2 weeks ago. Next dose is due on October 17, 2018. Past surgical history: Right mastectomy August 2015 MediPort placement Social history: Quit smoking 25 years ago. Used to smoke for only about 3 years. Denies any alcohol abuse or drug abuse. Lives with her family. Family history: Denies any medical history in her family that she knows Home medications: Patient reports she is now taking Decadron half a pill of her previous prescription dose once a day. Keppra 500 mg p.o. twice daily. Oxycodone 5 mg p.o. daily nightly as needed. Inpatient Certification Inpatient Certification: I certify that the inpatient services were ordered in accordance with Medicare regulations governing the order. This includes certification that hospital inpatient services are reasonable and necessary and in the case of services not specified as inpatient-only under 42 CFR 419.22(n), that they are appropriately provided as inpatient services in accordance to with the 2-midnight benchmark under 43 CFR 412.3(e) Estimated Total Length of Stay (Days): 3 Plans for Post Hospital Care: Home Review of Systems Review of Systems: all other systems reviewed are negative PMFSH Family History Family History Other Family history unknown Social History Social History Substance History: No History of Abuse Second Hand Smoke Exposure: No Smoking Status: Never smoker How Often Do You Have a Drink Containing Alcohol: Never Recent Travel in [place] within the Last 8 Weeks: No Recent Out of Country Travel within the Last 8 Weeks: No Immunization History Tetanus Immunization: <5 Years Medications and Allergies Allergies Allergy/AdvReac Type Severity Reaction Status Date / Time ketoconazole AdvReac Intermediate Verified 10/25/17 10:58 UNKNOWN NARCOTIC Allergy Intermediate Rash Uncoded 08/10/15 13:02 Active Medications: Active Medications Acetaminophen (Tylenol) 650 mg PO Q4H PRN PRN Reason: Temp > 100.4 Enoxaparin Sodium (Lovenox Inj) 40 mg SQ Q24H [facility] Ondansetron HCl (Zofran Inj) 4 mg IV.PUSH Q6H PRN PRN Reason: NAUSEA OR VOMITING Sodium Chloride (Ns Flush) 2 ml IV.FLUSH BID [facility] Sodium Chloride (Ns Flush) 2 ml IV.FLUSH PRN PRN PRN Reason: FLUSH AFTER USING IV ACCESS Physical Exam Vital signs: Last Vital Signs Pulse 93 H 10/10/18 21:00 Resp 17 10/10/18 21:00 BP 133/66 10/10/18 21:00 Pulse Ox 94 L 10/10/18 21:00 GENERAL: This is a well-nourished, well-developed patient, in no apparent distress.Obese lady. In acute distress from dyspnea on nonrebreather. CARDIOVASCULAR: Tachycardic, regular rhythm without murmurs, gallops, or rubs. RESPIRATORY: Bilateral coarse crepitations. Equal air entry bilaterally. GASTROINTESTINAL: Abdomen soft, non-tender, nondistended. Normal active bowel sounds MUSCULOSKELETAL: Extremities without clubbing, cyanosis, or edema. NEURO: Alert & Oriented x4 to person, place, time, situation. Moves all ext x4 Results Labs CBC & Chem 7: 10/11/18 05:55 10/11/18 05:55 Imaging Impressions Chest X-Ray 10/10/18 17:58 CONCLUSION: 1. Cardiomegaly with mild positive fluid balance. Chest CTA 10/10/18 18:35 CONCLUSION: 1. No CT evidence for pulmonary artery embolism as questioned. 2. Cardiomegaly with mild pulmonary edema pattern. Caprini VTE Risk Assessment Caprini VTE Risk Assessment: Moderate/High Risk (score >= 2) Caprini Risk Assessment Model: Point Value = 1 Point Value = 2 Point Value = 3 Point Value = 5 Age 41-60 Minor surgery BMI > 25 kg/m2 Swollen legs Varicose veins or History of unexplained or recurrent spontaneous Oral contraceptives or hormone replacement Sepsis (< 1 month) Serious lung disease, including pneumonia (< 1 month) Abnormal pulmonary function Acute myocardial infarction Congestive heart failure (< 1 month) History of inflammatory bowel disease Medical patient at bed rest Age 61-74 Arthroscopic surgery Major open surgery (> 45 min) Laparoscopic surgery (> 45 min) Malignancy Confined to bed (> 72 hours) Immobilizing plaster cast Central venous access Age >= 75 History of VTE Family history of VTE Factor V Leiden Prothrombin [id number] Lupus anticoagulant Anticardiolipin antibodies Elevated serum homocysteine Heparin-induced thrombocytopenia Other congenital or acquired thrombophilia Stroke (< 1 month) Elective arthroplasty Hip, pelvis, or leg fracture Acute spinal cord injury (< 1 month) Prophylaxis Regimen: Total Risk Factor Score Risk Level Prophylaxis Regimen 0-1 Low Early ambulation 2 Moderate Order ONE of the following: *Sequential Compression Device (SCD) *Heparin 5000 units SQ BID 3-4 Higher Order ONE of the following medications: *Heparin 5000 units SQ TID *Enoxaparin/Lovenox 40 mg SQ daily (WT < 150 kg, CrCl > 30 mL/min) *Enoxaparin/Lovenox 30 mg SQ daily (WT < 150 kg, CrCl > 10-29 mL/min) *Enoxaparin/Lovenox 30 mg SQ BID (WT < 150 kg, CrCl > 30 mL/min) AND/OR *Sequential Compression Device (SCD) 5 or more Highest Order ONE of the following medications: *Heparin 5000 units SQ TID (Preferred with Epidurals) *Enoxaparin/Lovenox 40 mg SQ daily (WT < 150 kg, CrCl > 30 mL/min) *Enoxaparin/Lovenox 30 mg SQ daily (WT < 150 kg, CrCl > 10-29 mL/min) *Enoxaparin/Lovenox 30 mg SQ BID (WT < 150 kg, CrCl > 30 mL/min) AND *Sequential Compression Device (SCD) Assessment and Plan Plan Impression: Dyspnea with evidence of pulmonary edema on chest x-ray. Likely secondary to new onset CHF. 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 Status post right mastectomy in August 2015. Status post radiation therapy 30 rounds at that time. Recurrence and metastasis of this right breast cancer which was diagnosed in October 2017 when they found tumor on the brachial plexus. Currently on chemotherapy. Last dose was 2 weeks ago. Next dose is due on October 17, 2018. Plan: Please patient on BiPAP stat. Echocardiogram in a.m. Cardiology consult. Replace potassium 40 mEq p.o. Consult patient's oncologist as to whether her CHF may be secondary to chemo regimen. Resume home meds. DVT prophylaxis with Lovenox. code status- full code- discussed with patient. Admit patient to ICU. Critical care time 35 minutes addendum: Discussed with patient's nurse at 7:10 AM. Patient is still on BiPAP, awake alert oriented. However reported the patient has about 15 beats of V. tach overnight in C. Does replace additional 40 mEq p.o. 1 dose later in the morning. Magnesium sulfate 2 g IV 1 dose now. Repeat ABG this morning. Call with results.
[2018-10-10] MEDS: Enoxaparin Inj 40 MG/0.4 ML Syringe SQ SCH (23:10)
[2018-10-11] MEDS: Chlorhexidine Gluconate 2% 1 Pack (2 Cloths) TOPICAL SCH (03:07)
[2018-10-11] MEDS ORDERED: Chlorhexidine Gluconate 2% 1 Pack (2 Cloths) TOPICAL PRN (04:00)
[2018-10-11 06:14] LABS: Baso % (Auto) 0.3 % (0.0-2.0); Eos % (Auto) 0.5 % (0.0-4.0); Hematocrit 34.2 % (35.0-46.0); Hemoglobin 11.6 gm/dL (11.6-15.3); Lymph # (Auto) 2.2 th/mm3 (1.0-4.8); Mean Corpuscular HGB Conc 33.9 % (32.0-36.0); Mean Corpuscular Hemoglobin 32.9 pg (27.0-34.0); Mean Corpuscular Volume 97.2 fL (80.0-100.0); Mean Platelet Volume 7.8 fL (7.0-11.0); Mono # (Auto) 0.4 th/mm3 (0.0-0.9); Mono % (Auto) 6.6 % (0.0-8.0); Neut # (Auto) 3.5 th/mm3 (1.8-7.7); Neut % (Auto) 56.6 % (16.0-70.0); Platelet Count 163 th/mm3 (150-450); Red Blood Count 3.52 mil/mm3 (4.00-5.30); Red Cell Distribution Width 16.6 % (11.6-17.2); White Blood Count 6.2 th/mm3 (4.0-11.0)
[2018-10-11 06:45] LABS: Anion Gap 6 meq/L (5-15); Blood Urea Nitrogen 17 mg/dL (7-18); Calcium 8.3 mg/dL (8.5-10.1); Carbon Dioxide 34.2 meq/L (21.0-32.0); Chloride 101 meq/L (98-107); Glomerular Filtration Rate Greater Than 89 mL/min (>89); Glucose,Random 114 mg/dL (74-106); Potassium 3.3 meq/L (3.5-5.1); Sodium 141 meq/L (136-145)
[2018-10-11 06:49] LABS: Troponin I 0.04 ng/mL (0.02-0.05)
[2018-10-11 07:04] LABS: Lymphocytes 28 % (9-44); Metamyelocytes 3 % (0-1); Monocytes 7 % (0-8); Myelocytes 2 % (0-0); Tallied Nucleated RBC 3 (0-0)
[2018-10-11 07:05] LABS: Platelet Estimate Normal (Normal); Platelet Morphology Normal (Normal); Polychromasia 2.5 % (0.0-1.9)
[2018-10-11] MEDS ORDERED: Magnesium Sulfate Inj 2 GM in Sodium Chlor 0.9% Inj 96 ML IV.SIG ONE (07:18)
[2018-10-11 08:04] LABS: ABG Base Excess 8.8 mmol/L (-2-2); ABG PCO2 47 mmHg (38-42); ABG PO2 84 mmHG (61-120)
[2018-10-11] MEDS: levETIRAcetam 500 MG Tablet PO SCH ×2 (08:25→20:42)
--- NOTE | 2018-10-11 08:25 | P.CONCA ---
History of Present Illness Service: cardiology Consult date: 10/11/18 Requesting Physician: Anshul Crain Reason for Consult: dyspnea Primary Care Provider: Susie Jorge MD Chief Complaint: dyspnea History of Present Illness: 57-year-old lady with morbid obesity and metastatic breast cancer initially diagnosed and treated with right mastectomy in August 2015 with metastases to the brachial plexus and brain. She is currently undergoing chemotherapy and has been on Decadron since early August 2018 following seizure activity from the brain metastases. She was admitted yesterday to [facility] after presenting with 2 weeks of progressive dyspnea and lower extremity edema. She has no history of CHF, cardiomyopathy, myocardial infarction or stroke. She denied any chest pain, palpitations, lightheadedness, syncope. No orthopnea or PND. No seizure activity since 08/2018. In the ER, she underwent CTA which was negative for pulmonary embolus. Chest x- ray reveals mild pulmonary vascular congestion. EKG reveals normal sinus rhythm , 91 bpm, low QRS voltage in precordial leads, poor R wave progression and biphasic ST and anterior septal leads which may be due to motion artifact. She was noted to be hypoxemic saturating 89% on room air. She was started on BiPAP which has just been transitioned to supplemental oxygen 6 L via nasal cannula. She was provided Lasix 20 mg IV x1 with no significant urine output. She reports she feels she needs to urinate but has not gone. Telemetry monitoring overnight revealed a 15 beat run of nonsustained ventricular tachycardia. Review of Systems All other systems reviewed negative except as stated in HPI PMFSH - History History Provided By: Patient - Medical History Medical History: Medical History (Last Reviewed 10/11/18 @ 07:55 by Inocente Holguin) Breast cancer Chronic pain Diarrhea Paralysis of right upper extremity - Surgical History Surgical History: Surgical History (Last Reviewed 10/11/18 @ 07:55 by Inocente Holguin) History of right mastectomy - Family History Family History: Family History (Last Updated 08/10/18 @ 00:26 by Minor Ashraf MD) Other Family history unknown - Tobacco History Second Hand Smoke Exposure: No Smoking Status: Never smoker - Alcohol History How Often Do You Have a Drink Containing Alcohol: Never - Substance Use History Substance History: No History of Abuse - Travel History Recent Travel in the [place] Within the Last 8 Weeks: No Recent Travel Out of the Country Within the Last 8 Weeks: No - Immunization History Tetanus Immunization: <5 Years Hx Influenza Vaccine This Season: Yes Medications and Allergies Active Medications: Active Medications Acetaminophen (Tylenol) 650 mg PO Q4H PRN PRN Reason: Temp > 100.4 Chlorhexidine Gluconate (Chlorhexidine 2% Cloth) 3 pack TOPICAL DAILY@0400 [facility] Stop: 10/16/18 03:59 Last Admin: 10/11/18 03:07 Dose: 3 pack Chlorhexidine Gluconate (Chlorhexidine 2% Cloth) 3 pack TOPICAL DAILY@0400 PRN PRN Reason: Extra cloth needed Stop: 10/16/18 03:59 Dexamethasone (Decadron) 1 mg PO DAILY [facility] Enoxaparin Sodium (Lovenox Inj) 40 mg SQ Q24H [facility] Last Admin: 10/10/18 23:10 Dose: 40 mg Furosemide (Lasix Inj) 40 mg IV.PUSH BID@0900,1800 [facility] Magnesium Sulfate 2 gm/ Sodium (Chloride) 100 mls @ 50 mls/hr IV.SIG ONCE ONE Stop: 10/11/18 09:17 Levetiracetam (Keppra) 500 mg PO BID [facility] Metoprolol Succinate (Toprol Xl) 25 mg PO DAILY [facility] Ondansetron HCl (Zofran Inj) 4 mg IV.PUSH Q6H PRN PRN Reason: NAUSEA OR VOMITING Pantoprazole Sodium (Protonix) 40 mg PO BID [facility] Potassium Chloride (K-Dur) 40 meq PO ONCE ONE Stop: 10/11/18 11:51 Sodium Chloride (Ns Flush) 2 ml IV.FLUSH BID [facility] Sodium Chloride (Ns Flush) 2 ml IV.FLUSH PRN PRN PRN Reason: FLUSH AFTER USING IV ACCESS Allergies Allergy/AdvReac Type Severity Reaction Status Date / Time ketoconazole AdvReac Intermediate Verified 10/25/17 10:58 UNKNOWN NARCOTIC Allergy Intermediate Rash Uncoded 08/10/15 13:02 Exam Vital signs: Vital Signs 10/10/18 17:58 10/10/18 18:35 10/10/18 21:00 Temperature Pulse Rate 100 H 93 H Respiratory Rate 22 17 Blood Pressure 160/78 H 133/66 Pulse Oximetry 98 99 94 L 10/10/18 22:16 10/10/18 23:32 10/10/18 23:46 Temperature Pulse Rate 94 H Respiratory Rate 22 Blood Pressure 131/63 Pulse Oximetry 94 L 100 97 01/04/19 00:00 10/11/18 00:30 10/11/18 01:00 Temperature 98 F Pulse Rate 88 91 H 88 Respiratory Rate 24 132 H 118 H Blood Pressure 127/64 121/76 113/55 L Pulse Oximetry 97 97 97 10/11/18 01:30 10/11/18 02:00 10/11/18 03:00 Temperature Pulse Rate 84 83 80 Respiratory Rate 126 H 24 22 Blood Pressure 122/67 117/70 126/60 Pulse Oximetry 96 97 95 10/11/18 04:00 10/11/18 04:29 10/11/18 05:00 Temperature Pulse Rate 79 76 Respiratory Rate 23 20 Blood Pressure 111/58 L 118/59 L Pulse Oximetry 93 L 93 L 93 L 10/11/18 06:00 10/11/18 07:40 Temperature Pulse Rate 77 Respiratory Rate 130 H Blood Pressure 122/68 Pulse Oximetry 94 L 96 Intake & Output 10/10/18 10/11/18 10/11/18 18:59 06:59 18:59 Intake Total 120 / 120 Balance 120 / 120 Weight 123.4 kg Intake: Oral 120 / 120 Other: # Incontinent Voids 1 Date of Last Bowel Movement 10/10/18 # Bowel Movements 0 Weight On Admission 123.4 kg Narrative: GENERAL: Morbidly obese, speaking fairly clearly while utilizing PPV SKIN: Warm and dry. HEAD: Atraumatic. Normocephalic. EYES: Pupils equal and round. No scleral icterus. No injection or drainage. NECK: Trachea midline. JVD unable to be evaluated due to thick neck CARDIOVASCULAR: Regular rate and rhythm. RESPIRATORY: No accessory muscle use. Clear to auscultation. Breath sounds equal bilaterally anteriorly. GASTROINTESTINAL: Abdomen soft, non-tender, nondistended. MUSCULOSKELETAL: Extremities without clubbing, cyanosis. 2+ pitting edema bilateral lower extremities from the feet to stone. No obvious deformities. NEUROLOGICAL: Awake and alert. PSYCHIATRIC: Appropriate mood and affect; insight and judgment normal. Results 10/11/18 05:55 10/11/18 05:55 Cardiac Enzymes 10/10/18 10/10/18 10/11/18 Range/Units 18:00 18:00 00:30 AST 35 (15-37) U/L Troponin I 0.05 0.05 (0.02-0.05) ng/mL B-Natriuretic Peptide 147 H (0-100) pg/mL 10/11/18 Range/Units 05:55 AST (15-37) U/L Troponin I 0.04 (0.02-0.05) ng/mL B-Natriuretic Peptide (0-100) pg/mL Coagulation 10/10/18 10/10/18 Range/Units 18:00 18:00 PT 10.8 (9.8-11.6) sec APTT 22.9 L (23.4-31.7) sec B-Natriuretic Peptide 147 H (0-100) pg/mL CBC 10/10/18 10/11/18 Range/Units 18:00 05:55 WBC 6.9 6.2 (4.0-11.0) th/mm3 RBC 3.77 L 3.52 L (4.00-5.30) mil/mm3 Hgb 12.3 11.6 (11.6-15.3) gm/dL Hct 36.5 34.2 L (35.0-46.0) % Plt Count 188 163 (150-450) th/mm3 Neut # (Auto) 3.8 3.5 (1.8-7.7) th/mm3 Lymph # (Auto) 3.0 2.2 (1.0-4.8) th/mm3 [place]o # (Auto) 0.5 0.4 (0.0-0.9) th/mm3 Eos # (Auto) 0.0 0.0 (0.0-0.4) th/mm3 Baso # (Auto) 0.0 0.0 (0.0-0.2) th/mm3 Comprehensive Metabolic Panel 10/10/18 10/11/18 Range/Units 18:00 05:55 Sodium 137 141 (136-145) meq/L Potassium 3.8 3.3 L (3.5-5.1) meq/L Chloride 100 101 (98-107) meq/L Carbon Dioxide 30.2 34.2 H (21.0-32.0) meq/L BUN 20 H 17 (7-18) mg/dL Creatinine 0.65 0.58 (0.50-1.00) mg/dL Calcium 8.6 8.3 L (8.5-10.1) mg/dL AST 35 (15-37) U/L ALT 73 H (10-53) U/L Alkaline Phosphatase 91 (45-117) U/L Total Protein 6.4 (6.4-8.2) g/dL Albumin 2.7 L (3.4-5.0) g/dL Intake and Output 10/10/18 10/11/18 10/11/18 22:59 06:59 14:59 Intake Total 120 / 120 Balance 120 / 120 Intake: Oral 120 / 120 Other: # Incontinent Voids 1 Date of Last Bowel Movement 10/10/18 # Bowel Movements 0 Weight 123.4 kg Weight On Admission 123.4 kg - Imaging and Cardiology Imaging: Impressions Chest X-Ray 10/10/18 17:58 CONCLUSION: 1. Cardiomegaly with mild positive fluid balance. Chest CTA 10/10/18 18:35 CONCLUSION: 1. No CT evidence for pulmonary artery embolism as questioned. 2. Cardiomegaly with mild pulmonary edema pattern. Assessment and Plan - Plan Assessment: --Dyspnea, suspect secondary to hypervolemic state. She has no history of underlying cardiomyopathy however she has been undergoing chemotherapy. I am unsure of what her chemotherapeutic agents are at this time. She has been utilizing systemic steroids for some time which may contribute to volume retention. Her dyspnea is likely compounded by her morbid obesity and possible obesity hypoventilation syndrome and likely EVA. --Episode of nonsustained ventricular tachycardia Recommendations: Agree with IV diuretic therapy, furosemide 40 mg IV twice daily has been ordered which may be titrated for I/O net negative 2-3 L daily until creatinine bumps. Transthoracic echocardiogram today. Start beta-cecilia with metoprolol succinate 25 mg daily Maintain K+ > 4, Mg >2 Continue telemetry monitoring Repeat EKG today
--- NOTE | 2018-10-11 08:56 | US ---
EXAM DATE: 10/11/2018 8:51 AM EST AGE/SEX: 57 years / Female INDICATIONS: Lower extremity edema. CLINICAL DATA: This is the patient's initial encounter. Patient reports that signs and symptoms have been present for 1 day and indicates a pain score of 0/10. MEDICAL/SURGICAL HISTORY: . Breast cancer. Paralysis of right upper extremity. Mastectomy, rig ht. COMPARISON: No prior exams available for comparison. TECHNIQUE: Venous ultrasound of both lower extremities was performed from the inguinal ligament to t he proximal calf. Real-time, color Doppler and spectral tracing, compression and augmentation techni ques were used. FINDINGS: Right Leg: Normal compression of the deep venous system from the inguinal region to the proximal van f. No echogenic clot is seen. Normal response of the venous system to augmentation and respiration. Left Leg: Normal compression of the deep venous system from the inguinal region to the proximal calf . No echogenic clot is seen. Normal response of the venous system to augmentation and respiration. Other: None. CONCLUSION: 1. Negative for deep venous thrombosis Electronically signed by: Jovan Kasper MD Board Certified Radiologist 10/11/2018 8:55 AM EST
--- NOTE | 2018-10-11 09:39 | P.PNFP ---
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 Was initially on BiPAP but now is on nasal cannula and feels her breathing is much better. She received diuretics last night as well due to clinical volume overload. Today she is tired but reports no shortness of breath , cough, fever, or chest pains. <Paras BradyEduin S - 10/11/18 09:39> Results - Labs Result diagrams: 10/11/18 05:55 10/15/18 04:35 <Chanel Bhatt - 10/16/18 09:58> Abnormal lab results 10/13/18 Range/Units 05:10 Potassium 3.3 L (3.5-5.1) meq/L Chloride 94 L (98-107) meq/L Carbon Dioxide 34.9 H (21.0-32.0) meq/L BUN 20 H (7-18) mg/dL Random Glucose 197 H (74-106) mg/dL BMP 10/13/18 05:10 Sodium 136 Potassium 3.3 L Chloride 94 L Carbon Dioxide 34.9 H BUN 20 H Creatinine 0.63 Calcium 9.0 <Chanel Bhatt - 10/16/18 09:58> Abnormal lab results 10/10/18 10/10/18 10/10/18 Range/Units 18:00 18:00 18:00 RBC 3.77 L (4.00-5.30) mil/mm3 Hct (35.0-46.0) % Metamyelocytes % (Man) 4 H (0-1) % Myelocytes % (Man) 1 H (0-0) % Nucleated RBCs/100 WBC 8 H (0-0) /100 WBC Polychromasia 2.5 H (0.0-1.9) % APTT 22.9 L (23.4-31.7) sec ABG pH (7.380-7.420) ABG pCO2 (38-42) mmHg ABG pO2 (61-120) mmHg ABG HCO3 (22-26) mmol/L ABG Base Excess (-2-2) mmol/L Hemoglobin (12.0-16.0) G/DL Potassium (3.5-5.1) meq/L Carbon Dioxide (21.0-32.0) meq/L BUN 20 H (7-18) mg/dL Random Glucose 128 H (74-106) mg/dL Calcium (8.5-10.1) mg/dL ALT 73 H (10-53) U/L B-Natriuretic Peptide (0-100) pg/mL Albumin 2.7 L (3.4-5.0) g/dL 10/10/18 10/10/18 10/11/18 Range/Units 18:00 18:26 05:55 RBC 3.52 L (4.00-5.30) mil/mm3 Hct 34.2 L (35.0-46.0) % Metamyelocytes % (Man) 3 H (0-1) % Myelocytes % (Man) 2 H (0-0) % Nucleated RBCs/100 WBC 3 H (0-0) /100 WBC Polychromasia 2.5 H (0.0-1.9) % APTT (23.4-31.7) sec ABG pH 7.50 H (7.380-7.420) ABG pCO2 37 L (38-42) mmHg ABG pO2 210 H (61-120) mmHg ABG HCO3 29 H (22-26) mmol/L ABG Base Excess 5.3 H (-2-2) mmol/L Hemoglobin (12.0-16.0) G/DL Potassium (3.5-5.1) meq/L Carbon Dioxide (21.0-32.0) meq/L BUN (7-18) mg/dL Random Glucose (74-106) mg/dL Calcium (8.5-10.1) mg/dL ALT (10-53) U/L B-Natriuretic Peptide 147 H (0-100) pg/mL Albumin (3.4-5.0) g/dL 10/11/18 10/11/18 Range/Units 05:55 07:55 RBC (4.00-5.30) mil/mm3 Hct (35.0-46.0) % Metamyelocytes % (Man) (0-1) % Myelocytes % (Man) (0-0) % Nucleated RBCs/100 WBC (0-0) /100 WBC Polychromasia (0.0-1.9) % APTT (23.4-31.7) sec ABG pH 7.46 H (7.380-7.420) ABG pCO2 47 H (38-42) mmHg ABG pO2 (61-120) mmHg ABG HCO3 33 H (22-26) mmol/L ABG Base Excess 8.8 H (-2-2) mmol/L Hemoglobin 11.7 L (12.0-16.0) G/DL Potassium 3.3 L (3.5-5.1) meq/L Carbon Dioxide 34.2 H (21.0-32.0) meq/L BUN (7-18) mg/dL Random Glucose 114 H (74-106) mg/dL Calcium 8.3 L (8.5-10.1) mg/dL ALT (10-53) U/L B-Natriuretic Peptide (0-100) pg/mL Albumin (3.4-5.0) g/dL Short CBC 10/10/18 10/11/18 Range/Units 18:00 05:55 WBC 6.9 6.2 (4.0-11.0) th/mm3 Hgb 12.3 11.6 (11.6-15.3) gm/dL Hct 36.5 34.2 L (35.0-46.0) % Plt Count 188 163 (150-450) th/mm3 BMP 10/10/18 10/11/18 18:00 05:55 Sodium 137 141 Potassium 3.8 3.3 L Chloride 100 101 Carbon Dioxide 30.2 34.2 H BUN 20 H 17 Creatinine 0.65 0.58 Calcium 8.6 8.3 L Cardiac Enzymes 10/10/18 10/10/18 10/11/18 Range/Units 18:00 18:00 00:30 Total Creatine Kinase 30 (26-192) U/L Troponin I 0.05 0.05 (0.02-0.05) ng/mL 10/11/18 Range/Units 05:55 Total Creatine Kinase (26-192) U/L Troponin I 0.04 (0.02-0.05) ng/mL Liver Function 10/10/18 Range/Units 18:00 Total Bilirubin 0.8 (0.2-1.0) mg/dL AST 35 (15-37) U/L ALT 73 H (10-53) U/L Alkaline Phosphatase 91 (45-117) U/L Albumin 2.7 L (3.4-5.0) g/dL <Eduin Lopes S - 10/11/18 09:39> - Imaging Impressions Chest X-Ray 10/10/18 17:58 CONCLUSION: 1. Cardiomegaly with mild positive fluid balance. Chest CTA 10/10/18 18:35 CONCLUSION: 1. No CT evidence for pulmonary artery embolism as questioned. 2. Cardiomegaly with mild pulmonary edema pattern. Venous Doppler Study 10/11/18 00:00 CONCLUSION: 1. Negative for deep venous thrombosis <Eduin Lopes S - 10/11/18 09:39> Physical Exam Vital signs: Vital Signs 10/12/18 12:00 10/12/18 14:00 10/12/18 16:00 Temperature 98.1 F 98 F Pulse Rate 79 79 80 Respiratory Rate 24 118 H Blood Pressure 122/69 125/78 Pulse Oximetry 92 L 92 L 10/12/18 17:00 10/12/18 18:00 10/12/18 19:00 Temperature 97.5 F L Pulse Rate 78 78 82 Respiratory Rate 25 H 51 H 26 H Blood Pressure 131/73 128/77 120/77 Pulse Oximetry 93 L 94 L 93 L 10/12/18 20:00 10/12/18 21:00 10/12/18 22:00 Temperature Pulse Rate 77 79 73 Respiratory Rate 29 H 130 H 101 H Blood Pressure 127/72 118/75 Pulse Oximetry 93 L 93 L 91 L 10/12/18 22:01 10/12/18 22:38 10/12/18 23:00 Temperature Pulse Rate 73 72 Respiratory Rate 107 H 104 H Blood Pressure 137/73 132/77 Pulse Oximetry 91 L 97 97 10/13/18 00:00 10/13/18 01:00 10/13/18 02:00 Temperature Pulse Rate 68 72 68 Respiratory Rate 19 21 22 Blood Pressure 140/72 145/77 H 134/66 Pulse Oximetry 96 96 95 10/13/18 03:00 10/13/18 04:00 10/13/18 05:00 Temperature 98.6 F Pulse Rate 72 67 72 Respiratory Rate 19 19 16 Blood Pressure 146/69 H 126/69 139/81 Pulse Oximetry 97 95 96 10/13/18 06:00 10/13/18 08:24 Temperature Pulse Rate 69 Respiratory Rate Blood Pressure Pulse Oximetry 94 L Intake & Output 10/12/18 10/13/18 10/13/18 18:59 06:59 18:59 Intake Total 440 / 440 420 / 420 Output Total 1150 / 1150 625 / 625 Balance -710 / -710 -205 / -205 Weight 121.5 kg Intake: Oral 440 / 440 420 / 420 Output: Urine 625 / 625 Urine Amount (Catheter) 1150 / 1150 Female External 1150 / 1150 Other: # Incontinent Voids 1 Date of Last Bowel Movement 10/11/18 10/11/18 # Bowel Movements 0 <Chanel Bhatt M - 10/16/18 09:58> Vital Signs 10/10/18 17:58 10/10/18 18:35 10/10/18 21:00 Temperature Pulse Rate 100 H 93 H Respiratory Rate 22 17 Blood Pressure 160/78 H 133/66 Pulse Oximetry 98 99 94 L 10/10/18 22:16 10/10/18 23:32 10/10/18 23:46 Temperature Pulse Rate 94 H Respiratory Rate 22 Blood Pressure 131/63 Pulse Oximetry 94 L 100 97 10/11/18 00:00 10/11/18 00:30 10/11/18 01:00 Temperature 98 F Pulse Rate 88 91 H 88 Respiratory Rate 24 132 H 118 H Blood Pressure 127/64 121/76 113/55 L Pulse Oximetry 97 97 97 10/11/18 01:30 10/11/18 02:00 10/11/18 03:00 Temperature Pulse Rate 84 83 80 Respiratory Rate 126 H 24 22 Blood Pressure 122/67 117/70 126/60 Pulse Oximetry 96 97 95 10/11/18 04:00 10/11/18 04:29 10/11/18 05:00 Temperature Pulse Rate 79 76 Respiratory Rate 23 20 Blood Pressure 111/58 L 118/59 L Pulse Oximetry 93 L 93 L 93 L 10/11/18 06:00 10/11/18 07:40 Temperature Pulse Rate 77 Respiratory Rate 130 H Blood Pressure 122/68 Pulse Oximetry 94 L 96 Intake & Output 10/10/18 10/11/18 10/11/18 18:59 06:59 18:59 Intake Total 120 / 120 Balance 120 / 120 Weight 123.4 kg Intake: Oral 120 / 120 Other: # Incontinent Voids 1 Date of Last Bowel Movement 10/10/18 # Bowel Movements 0 Weight On Admission 123.4 kg <Eduin Lopes 10/11/18 09:39> - Constitutional no acute distress, morbidly obese, cooperative <Eduin Lopes 10/11/18 09:39> - Routine HEENT Exam Head: Present: normocephalic, atraumatic <Eduin Lopes 10/11/18 09:39> ENT: Present: mucous membranes moist <Eduin Lopes 10/11/18 09:39> - Routine Respiratory Exam Present: CTA bilaterally. Absent: accessory muscle use, respiratory distress ( bronchial breath sounds but otherwise clear), wheezes, crackles <Eduin Lopes 10/11/18 12:09> - Routine Cardiovascular Exam Present: RRR, S1, S2. Absent: murmur <Eduin Lopes 10/11/18 12:09> - Routine Abdominal Exam Present: soft <Eduin Lopes 10/11/18 12:09> - Routine Extremities Exam Absent: cyanosis, edema <Eduin Lopes 10/11/18 12:09> - Routine Neurological Exam Present: alert, oriented X3. Absent: moving all extremities (minimal movement of hand/forearm of RUE but this is her baseline from brachial plexus involvement of cancer) <Eduin Lopes 10/11/18 12:09> - Detailed Neurological Exam: Coma Scale Eye Opening: Spontaneous <Eduin Lopes 10/11/18 12:09> Verbal Response: Oriented <Eduin Lopes 10/11/18 12:09> Motor Response: Obey commands <Eduin Lopes 10/11/18 12:09> Renee Coma Scale Total: 15 <Eduin Lopes 10/11/18 12:09> - Routine Psychiatric Exam Present: normal affect <Eduin Lopes 10/11/18 12:09> Assessment and Plan - Assessment (1) Shortness of breath Code(s): R06.02 - Shortness of breath Status: Resolved (2) Pneumonitis Code(s): J18.9 - Pneumonia, unspecified organism Status: Acute (3) Metastatic breast cancer Code(s): C50.919 - Malignant neoplasm of unspecified site of unspecified female breast Status: Chronic (4) Essential hypertension Code(s): I10 - Essential (primary) hypertension Status: Chronic <Chanel Bhatt - 10/16/18 09:58> (1) Shortness of breath Code(s): R06.02 - Shortness of breath Status: Acute (2) Pneumonitis Code(s): J18.9 - Pneumonia, unspecified organism Status: Acute (3) Metastatic breast cancer Code(s): C50.919 - Malignant neoplasm of unspecified site of unspecified female breast Status: Chronic (4) Essential hypertension Code(s): I10 - Essential (primary) hypertension Status: Chronic <Eduin Lopes S - 10/11/18 11:55> - Assessment and Plan 57 yo with metastatic breast cancer admitted with: Shortness of breath - improving CT finding suggestive of pneumonitis (ground glass opacities) consistent with chemotherapy side effect Clinically slightly volume overloaded and improved somewhat with diuresis, however no pulmonary edema on CT Echo with grossly low-normal EF, difficult study due to body habitus * Continue O2 via NC * Consulted oncology, appreciate assistance * Treat pneumonitis as below * Consulted cardiology, appreciate recs * Continue diuresis for now * Monitor I/O; do not want to diurese too aggressively as she does not seem to have CHF or pulmonary edema that caused the SOB * If stable tomorrow AM likely can be transferred out of ICU Pneumonitis Discussed with oncologist Dr. Vanessa, likely this is side effect of her chemotherapy * Solu-medrol 60 mg IV BID * Monitor vitals, titrate O2 PRN Metastatic breast cancer Currently treated with chemotherapy per Dr. Vanessa * Has some new leg weakness, Dr. 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 Vanessa <Eduin Lopes 10/11/18 12:09> Discharge Planning: Likely transfer out of ICU tomorrow AM if continuing to be stable; expect 2-3 days in hospital with ultimate discharge home, possibly with home health <Eduin Lopes - 10/11/18 12:09> - Attending Attestation The exam, history, and the medical decision-making described in the above note were completed with the assistance of the resident physician. I reviewed and agree with the findings presented. I attest that I had a [id number] encounter with the patient on the same day, and personally performed and documented my assessment and findings in the medical record. improving since admission. still needed bipap intermittently <Chnael Bhatt - 10/13/18 10:18>
--- NOTE | 2018-10-11 11:15 | ECHRPT ---
Indication: heart failure CONCLUSIONS Technically very difficult apical views making assessment of left ventricular function and wall isaiah on suboptimal. Grossly left ventricular function appears to be low normal. Normal left ventricular size. Wall thickness is normal. There was limited left ventricular wall isaiah on assessment due to poor endocardial visualization. Right ventricle not well visualized, difficult to exclude right ventricular enlargement. Right vent ricular systolic function cannot be assessed. Trace tricuspid regurgitation. The estimated pulmonary arterial pressure is 37 mmHg. BP: / HR: Rhythm: MEASUREMENTS (Male / Female) Normal Values Technical Quality: 2D ECHO LV Diastolic Diameter PLAX 4.3 cm 4.2 - 5.9 / 3.9 - 5.3 cm LV Systolic Diameter PLAX 3.6 cm IVS Diastolic Thickness 1.2 cm 0.6 - 1.0 / 0.6 - 0.9 cm LVPW Diastolic Thickness 1.3 cm 0.6 - 1.0 / 0.6 - 0.9 cm LV Relative Wall Thickness 0.6 RV Internal Dim ED PLAX 3.9 cm LVOT Diameter 2.1 cm Aortic Root Diameter 3.1 cm LA Systolic Diameter LX 4.0 cm 3.0 - 4.0 / 2.7 - 3.8 cm DOPPLER AV Peak Velocity 122.0 cm/s AV Peak Gradient 6.0 mmHg AI Peak Velocity 197.0 cm/s AI Peak Gradient 15.5 mmHg AI Pressure Half Time 333.0 ms Mitral E Point Velocity 42.0 cm/s Mitral A Point Velocity 49.4 cm/s Mitral E to A Ratio 0.9 TR Peak Velocity 259.0 cm/s TR Peak Gradient 27.0 mmHg Right Atrial Pressure 10.0 mmHg Pulmonary Artery Systolic Pressu 36.8 mmHg Right Ventricular Systolic Press 36.8 mmHg PV Peak Velocity 80.1 cm/s PV Peak Gradient 2.6 mmHg FINDINGS LEFT VENTRICLE Technically very difficult apical views making assessment of left ventricular function and wall isaiah on suboptimal. Grossly left ventricular function appears to be low normal. Normal left ventricular size. Wall thickness is normal. There was limited left ventricular wall isaiah on assessment due to poor endocardial visualization. RIGHT VENTRICLE Right ventricle not well visualized, difficult to exclude right ventricular enlargement. Right vent ricular systolic function cannot be assessed. LEFT ATRIUM The left atrial size is normal. RIGHT ATRIUM The right atrial size is normal. ATRIAL SEPTUM Normal atrial septal thickness without atrial level shunting by limited color doppler interrogation. AORTA The aortic root and proximal ascending aorta are normal in size on limited imaging. MITRAL VALVE Structurally normal mitral valve. No mitral valve stenosis or regurgitation. AORTIC VALVE Trileaflet aortic valve. No aortic valve stenosis or regurgitation. TRICUSPID VALVE Trace tricuspid regurgitation. The estimated pulmonary arterial pressure is 37 mmHg. PULMONARY VALVE No pulmonary valve regurgitation or stenosis. VESSELS The inferior vena cava is normal in size. PERICARDIUM No pericardial effusion. Arnulfo Prabhakar MD (Electronically Signed) Final Date:11 October 2018 11:14
--- NOTE | 2018-10-11 11:41 | MB ---
cc: Thomas Vanessa MD DATE: 10/11/2018 REASON FOR CONSULTATION: Patient with metastatic breast cancer with progressive shortness of breath. SOCIAL HISTORY: The patient is single. She is unemployed. 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 She had been twice in the past. She has 5 children. She resides with her son and her pipelayer. She had smoked between the ages of 16 and 23 with minimal tobacco use. She rarely drinks. HISTORY OF PRESENT ILLNESS: The patient is a 57-year-old female who had a right mastectomy and axillary dissection on 08/11/2015 for locally advanced breast cancer, measuring 24 cm with 14 positive lymph nodes. The tumor was HER2/bowen positive. She received Taxotere, Herceptin and pertuzumab and completed a year of therapy with Herceptin. She subsequently developed right arm weakness and was eventually found to have involvement of the right brachial plexus with tumor. She was treated with Herceptin and pertuzumab every 3 weeks with Abraxane day 1 and day 8 and did well. On 04/25/2018 an MRI of the brachial plexus showed a complete response. Her echocardiogram in April 2013 showed an ejection fraction of 50%. On 08/09/2018, she had a seizure and was brought to the emergency room. She was found to have 3 lesions in the brain. She was treated with radiation therapy. She was placed on Decadron which has been tapered and presently she is taking either 1 or 2 mg a day. Over the past week to 2 weeks she noted progressive shortness of breath. Breathing became extremely difficult and it is for this reason that she went to the emergency room. She had a number of studies done, which included chest CTA on 10/10/2018. I reviewed the chest CT. She has diffuse ground glass opacities bilaterally with mild diffuse interstitial prominence. There is no effusion. There is no evidence of metastatic disease. She is noted to have mild cardiomegaly and mild pulmonary edema pattern. What is most remarkable is the diffuse bilateral ground glass infiltrates. A Doppler of the lower extremities is negative for deep vein thrombosis. An electrocardiogram shows poor R-wave progression, anterior T-wave changes are nonspecific. The patient has been placed on oxygen. Her breathing is no easier except for the presence of the oxygen. LABORATORY STUDIES: On 10/11/2017, Hemoglobin 11.6, white count 6200, and platelets are 163,000. She has 3 nucleated red cells. She has leftward shifted with metamyelocytes 3%, and myelocytes 2%. A blood gas. O2 saturation 93, pH 7.46, pCO2 is 47, pO2 is 84, BUN 17, creatinine is 0.58. Liver function tests notable for slight elevation of the ALT to 73. Most importantly be the BNP is mildly elevated at 147. Keppra levels 6. PAST SURGICAL HISTORY: 1. Right mastectomy and axillary dissection 08/11/2015 for a 24 cm breast cancer, 14 of 14 lymph nodes positive, HER2/bowen positive ER 0, [place] 0. Pathologic stage T4D, N3A, M0, at presentation. 2. History of tonsillectomy. 3. Port placement for lumbar spine surgery in 1997. PAST MEDICAL HISTORY: 1. Metastatic breast cancer involving brain. On 08/21/2018, she had an MRI of the brain with contrast showing 3 enhancing lesions in the supra and infratentorial distribution of the brain. She has received radiation to this area. Other areas of metastatic disease have included the brachial plexus which has left her with right arm weakness. 2. History of psoriasis. 3. 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 4. History of hypertension. MEDICATIONS PRIOR TO ADMISSION: Included: 1. Xanax. 2. Decadron at a tapering dose, I believe dose 1 or 2 mg a day. 3. Keppra 500 mg p.o. b.i.d. ALLERGIES: Ketoconazole. FAMILY HISTORY: Noncontributory. REVIEW OF SYSTEMS: Has been generalized weakness. She has noted increasing weakness in the right leg. She has not been well. She has had shortness of breath. Gait has been poor and she has had an occasional fall. PHYSICAL EXAMINATION: VITAL SIGNS: Blood pressure is 120/70, respiratory rate is 18, pulse 80, afebrile. HEENT: Head is normocephalic. Sclerae and conjunctivae are normal. Oropharynx unremarkable. No cervical, supraclavicular, axillary or inguinal adenopathy. HEART: Regular rate and rhythm. LUNGS: Revealed dry rales primarily at the bases. ABDOMEN: Markedly obese. No hepatosplenomegaly. EXTREMITIES: Plus 1 edema bilaterally. NEUROLOGIC: No movement of right arm. Slight right leg weakness compared to the left. SKIN: Intact. IMPRESSION: The patient is a 57-year-old female with stage IV breast cancer, which is, HER2/bowen positive. She has had metastatic disease to the right brachial plexus and to the brain. She recently completed radiation to the brain. She has been on a tapering dose of steroids and during the past 1-2 weeks has developed progressive shortness of breath. In my estimate she does not have overt congestive heart failure. When I review the CT of the thorax my major concern is the extensive ground glass infiltrates in both lungs. These are suggestive of a pneumonitis and this can occur with Herceptin and I believe with pertuzumab as well. The temporal relationship to the drugs and the decreasing dose of steroids makes me concerned that we are dealing with a pneumonitis. She also complains of increasing weakness in the right leg and therefore I am concerned about the extent of disease in the brain and response to therapy. She does not have any back pain to suggest spinal cord compression. PLAN: 1. Will discontinue the low-dose Decadron, which is currently a mg a day. 2. Begin Solu-Medrol 60 q. 12 hours. 3. MRI of brain. 4. Follow clinical course and she may need a repeat CT of the thorax, which can be done without contrast in a number of days. I have discussed this with her hospitalist, Dr. Wyman. MD SHU Fontaine/tray , 09:39 AM , 09:55 AM MTDPratik
[2018-10-11] MEDS ORDERED: Gadobutrol PF 7.5 MMOL/7.5 ML Vial (for RAD) IV.SIG ONE (12:32)
--- NOTE | 2018-10-11 12:38 | MR ---
EXAM DATE: 10/11/2018 12:32 PM EST AGE/SEX: 57 years / Female INDICATIONS: Mass. Right side weakness. CLINICAL DATA: This is the patient's initial encounter. Patient reports that signs and symptoms have been present for 1 day and indicates a pain score of 0/10. MEDICAL/SURGICAL HISTORY: Carcinoma, breast. Diabetes mellitus type II. Metastatic brain. Ton sillectomy. Discectomy, lumbar. COMPARISON: [facility], MR BRAIN W AND W/O CONTRAST, 08/21/2018. . TECHNIQUE: Multiplanar, multisequence examination of the brain was performed without and with 12 ml G adavist (gadobutrol) contrast as a single exam dose. FINDINGS: History of metastatic disease to the brain. 2 small areas of contrast enhancement are identified, one high in the left occipital region to the se cond in the cerebellar hemisphere adjacent to the tentorium on the left side. Both of these are smaller in the interval with less edema in spite of the symptoms. No new lesions ar e identified. There is no parenchymal hemorrhage. Ventricular size is appropriate. There are no extra -axial fluid collections appreciated. CONCLUSION: 1. Interval improvement. Metastatic disease is smaller with less enhancement and less edema. Electronically signed by: Jovan Kasper MD Board Certified Radiologist 10/11/2018 12:37 PM EST
[2018-10-11] MEDS: MethylPREDNISolone Sod Succinate Inj 125 MG/2 ML Vial IV.PUSH SCH ×2 (13:03→20:43)
[2018-10-11] MEDS: Enoxaparin Inj 40 MG/0.4 ML Syringe SQ SCH (21:57)
[2018-10-12] MEDS: Chlorhexidine Gluconate 2% 1 Pack (2 Cloths) TOPICAL SCH (04:44)
[2018-10-12 06:19] LABS: Anion Gap 6 meq/L (5-15); Blood Urea Nitrogen 20 mg/dL (7-18); Calcium 8.6 mg/dL (8.5-10.1); Carbon Dioxide 35.2 meq/L (21.0-32.0); Chloride 98 meq/L (98-107); Glomerular Filtration Rate Greater Than 89 mL/min (>89); Glucose,Random 190 mg/dL (74-106); Phosphorus 3.6 mg/dL (2.5-4.9); Potassium 3.5 meq/L (3.5-5.1); Sodium 139 meq/L (136-145)
[2018-10-12] MEDS: MethylPREDNISolone Sod Succinate Inj 125 MG/2 ML Vial IV.PUSH SCH ×2 (08:50→21:02)
[2018-10-12] MEDS: levETIRAcetam 500 MG Tablet PO SCH ×2 (08:50→21:02)
--- NOTE | 2018-10-12 09:21 | P.PNFP ---
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 Yesterday needed BiPAP after her MRI and again at night. This morning on nasal cannula and feels comfortable, not too short of breath. No CP or fever. <Eduin Lopes - 10/12/18 09:21> Results - Labs Result diagrams: 10/11/18 05:55 10/13/18 05:10 <Chanel Bhatt - 10/13/18 10:22> Abnormal lab results 10/13/18 Range/Units 05:10 Potassium 3.3 L (3.5-5.1) meq/L Chloride 94 L (98-107) meq/L Carbon Dioxide 34.9 H (21.0-32.0) meq/L BUN 20 H (7-18) mg/dL Random Glucose 197 H (74-106) mg/dL [facility] 10/13/18 05:10 Sodium 136 Potassium 3.3 L Chloride 94 L Carbon Dioxide 34.9 H BUN 20 H Creatinine 0.63 Calcium 9.0 <Chanel Bhatt - 10/13/18 10:22> Abnormal lab results 10/12/18 Range/Units 04:16 Carbon Dioxide 35.2 H (21.0-32.0) meq/L BUN 20 H (7-18) mg/dL Random Glucose 190 H (74-106) mg/dL [facility] 10/12/18 04:16 Sodium 139 Potassium 3.5 Chloride 98 Carbon Dioxide 35.2 H BUN 20 H Creatinine 0.64 Calcium 8.6 <Eduin Lopes - 10/12/18 09:21> - Imaging Impressions Head MRI 10/11/18 00:00 CONCLUSION: 1. Interval improvement. Metastatic disease is smaller with less enhancement and less edema. <Eduin Lopes - 10/12/18 09:21> Physical Exam Vital signs: Vital Signs 10/12/18 12:00 10/12/18 14:00 10/12/18 16:00 Temperature 98.1 F 98 F Pulse Rate 79 79 80 Respiratory Rate 24 118 H Blood Pressure 122/69 125/78 Pulse Oximetry 92 L 92 L 10/12/18 17:00 10/12/18 18:00 10/12/18 19:00 Temperature 97.5 F L Pulse Rate 78 78 82 Respiratory Rate 25 H 51 H 26 H Blood Pressure 131/73 128/77 120/77 Pulse Oximetry 93 L 94 L 93 L 10/12/18 20:00 10/12/18 21:00 10/12/18 22:00 Temperature Pulse Rate 77 79 73 Respiratory Rate 29 H 130 H 101 H Blood Pressure 127/72 118/75 Pulse Oximetry 93 L 93 L 91 L 10/12/18 22:01 10/12/18 22:38 10/12/18 23:00 Temperature Pulse Rate 73 72 Respiratory Rate 107 H 104 H Blood Pressure 137/73 132/77 Pulse Oximetry 91 L 97 97 10/13/18 00:00 10/13/18 01:00 10/13/18 02:00 Temperature Pulse Rate 68 72 68 Respiratory Rate 19 21 22 Blood Pressure 140/72 145/77 H 134/66 Pulse Oximetry 96 96 95 10/13/18 03:00 10/13/18 04:00 10/13/18 05:00 Temperature 98.6 F Pulse Rate 72 67 72 Respiratory Rate 19 19 16 Blood Pressure 146/69 H 126/69 139/81 Pulse Oximetry 97 95 96 10/13/18 06:00 10/13/18 08:24 Temperature Pulse Rate 69 Respiratory Rate Blood Pressure Pulse Oximetry 94 L Intake & Output 10/12/18 10/13/18 10/13/18 18:59 06:59 18:59 Intake Total 440 / 440 420 / 420 Output Total 1150 / 1150 625 / 625 Balance -710 / -710 -205 / -205 Weight 121.5 kg Intake: Oral 440 / 440 420 / 420 Output: Urine 625 / 625 Urine Amount (Catheter) 1150 / 1150 Female External 1150 / 1150 Other: # Incontinent Voids 1 Date of Last Bowel Movement 10/11/18 10/11/18 # Bowel Movements 0 <Chanel Bhatt - 10/13/18 10:22> Vital Signs 10/11/18 10:00 10/11/18 10:01 10/11/18 11:00 Temperature Pulse Rate 79 81 94 H Respiratory Rate 133 H 164 H 36 H Blood Pressure 135/71 Pulse Oximetry 90 L 90 L 91 L 10/11/18 11:01 10/11/18 12:00 10/11/18 12:19 Temperature Pulse Rate 94 H 94 H 92 H Respiratory Rate 39 H Blood Pressure 138/104 H Pulse Oximetry 91 L 92 L 10/11/18 12:35 10/11/18 13:00 10/11/18 13:05 Temperature Pulse Rate 92 H 97 H 99 H Respiratory Rate 120 H 30 H 32 H Blood Pressure 118/61 115/55 L Pulse Oximetry 95 93 L 90 L 10/11/18 14:00 10/11/18 15:00 10/11/18 15:20 Temperature Pulse Rate 91 H 87 Respiratory Rate 27 H 137 H Blood Pressure 118/57 L 104/63 Pulse Oximetry 93 L 94 L 95 10/11/18 16:00 10/11/18 16:01 10/11/18 17:00 Temperature 98.7 F Pulse Rate 87 87 83 Respiratory Rate 26 H 55 H 36 H Blood Pressure 129/68 129/68 112/64 Pulse Oximetry 94 L 93 L 93 L 10/11/18 18:00 10/11/18 19:00 10/11/18 20:00 Temperature 97.9 F Pulse Rate 94 H 94 H 97 H Respiratory Rate 132 H 32 H 140 H Blood Pressure 111/78 118/58 L 123/65 Pulse Oximetry 90 L 94 L 93 L 10/11/18 21:00 10/11/18 21:31 10/11/18 22:00 Temperature Pulse Rate 86 85 Respiratory Rate 121 H 47 H Blood Pressure 112/65 110/63 Pulse Oximetry 92 L 94 L 95 10/11/18 23:00 10/11/18 23:55 10/12/18 00:00 Temperature 97.8 F Pulse Rate 79 76 Respiratory Rate 143 H 142 H Blood Pressure 106/62 116/74 Pulse Oximetry 97 95 91 L 10/12/18 01:00 10/12/18 01:01 10/12/18 02:00 Temperature Pulse Rate 82 93 H 80 Respiratory Rate 70 H 95 H 23 Blood Pressure 135/68 123/66 Pulse Oximetry 95 96 94 L 10/12/18 03:00 10/12/18 04:00 10/12/18 06:00 Temperature 97.4 F L Pulse Rate 74 78 73 Respiratory Rate 39 H 19 Blood Pressure 138/66 141/76 H Pulse Oximetry 91 L 96 Intake & Output 10/11/18 10/12/18 10/12/18 18:59 06:59 18:59 Intake Total 450 / 450 60 / 60 Output Total 1849 1250 / 1250 Balance -1400 / -1400 -1190 / -1190 Weight 122.5 kg Intake: IV 100 / 100 Magnesium Sulfate Inj 2 GM In 100 / 100 NS Inj 96 ML @ 50 mls/hr IV.SIG ONCE ONE Rx#:[id number] Oral 350 / 350 60 / 60 Output: Urine Amount (Catheter) 1849 1250 / 1250 Female External 1849 1250 / 1250 Other: # Incontinent Voids 1 Date of Last Bowel Movement 10/10/18 10/11/18 # Bowel Movements 0 1 <Crain R3,Eduin S - 10/12/18 09:21> - Constitutional no acute distress, morbidly obese, cooperative <Crain R3,Eduin S 10/12/18 09:21> - Routine HEENT Exam Head: Present: normocephalic, atraumatic <Crain R3,Eduin S 10/12/18 09:21> ENT: Present: mucous membranes moist <Crain R3,Eduin S - 10/12/18 09:21> - Routine Respiratory Exam Present: CTA bilaterally. Absent: accessory muscle use, wheezes, crackles < Crain R3,Eduin S - 10/12/18 09:21> - Routine Cardiovascular Exam Present: RRR, S1, S2. Absent: murmur <Crain R3,Eduin S - 10/12/18 09:21> - Routine Abdominal Exam Present: soft <Crain R3,Eduin S 10/12/18 09:21> - Routine Extremities Exam Absent: cyanosis, edema <Crain R3,Eduin S - 10/12/18 09:21> - Routine Neurological Exam Present: alert, moving all extremities, normal speech. Absent: altered mental status <Crain R3,Eduin S - 10/12/18 09:21> - Detailed Neurological Exam: Coma Scale Eye Opening: Spontaneous <Crain R3,Eduin S 10/12/18 09:21> Verbal Response: Oriented <Crain R3,Eduin S - 10/12/18 09:21> Motor Response: Obey commands <Crain R3,Eduin S 10/12/18 09:21> [place] Coma Scale Total: 15 <Crain R3,Eduin S 10/12/18 09:21> - Routine Psychiatric Exam Present: normal affect <Eduin Lopes 10/12/18 09:21> - Urinary Catheter Management Female External Cath placed during this visit: no <Chanel Bhatt - 10/13/18 10:22> no <Eduin Lopes 10/12/18 09:21> Assessment and Plan - Assessment (1) Shortness of breath Code(s): R06.02 - Shortness of breath Status: Resolved (2) Pneumonitis Code(s): J18.9 - Pneumonia, unspecified organism Status: Acute (3) Metastatic breast cancer Code(s): C50.919 - Malignant neoplasm of unspecified site of unspecified female breast Status: Chronic (4) Essential hypertension Code(s): I10 - Essential (primary) hypertension Status: Chronic <Chanel Bhatt 10/13/18 10:22> (1) Shortness of breath Code(s): R06.02 - Shortness of breath Status: Resolved (2) Pneumonitis Code(s): J18.9 - Pneumonia, unspecified organism Status: Acute (3) Metastatic breast cancer Code(s): C50.919 - Malignant neoplasm of unspecified site of unspecified female breast Status: Chronic (4) Essential hypertension Code(s): I10 - Essential (primary) hypertension Status: Chronic <Eduin Lopes 10/12/18 09:15> - Assessment and Plan 57 yo with metastatic breast cancer admitted with: Shortness of breath - resolved CT finding suggestive of pneumonitis (ground glass opacities) consistent with chemotherapy side effect Clinically slightly volume overloaded and improved somewhat with diuresis, however no pulmonary edema on CT Echo with grossly low-normal EF, difficult study due to body habitus * Continue O2 via NC, CPAP/BiPAP as needed, especially at night * Consulted oncology, appreciate assistance * Treat pneumonitis as below * Consulted cardiology, appreciate recs * Continue diuresis for now * Monitor I/O; do not want to diurese too aggressively as she does not seem to have CHF or pulmonary edema that caused the SOB * Decreased Lasix to 40 mg IV daily * If stable (i.e. if only needing BiPAP at night) tomorrow likely can be transferred out of ICU Pneumonitis Discussed with oncologist Dr. Vanessa, likely this is side effect of her chemotherapy * Solu-medrol 60 mg IV BID * Monitor vitals, titrate O2 PRN * Will recheck non-contrast CT chest in a couple days (can be done outpatient if needed) Metastatic breast cancer Currently treated with chemotherapy per Dr. 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 I reviewed and agree with the findings presented. I attest that I had a [id number] encounter with the patient on the same day, and personally performed and documented my assessment and findings in the medical record. appreciate help of Dr Vanessa. she is improving under his care <Chanel Bhatt - 10/13/18 10:22>
--- NOTE | 2018-10-12 10:13 | P.PNCA ---
Subjective Interval history: Breathing much improved today. Still with some leg swelling. Telemetry with no further NSVT/arrhythmia. Medications and Allergies Active Medications: Active Medications Acetaminophen (Tylenol) 650 mg PO Q4H PRN PRN Reason: Temp > 100.4 Chlorhexidine Gluconate (Chlorhexidine 2% Cloth) 3 pack TOPICAL DAILY@0400 [facility] Stop: 10/16/18 03:59 Last Admin: 10/12/18 04:44 Dose: 3 pack Chlorhexidine Gluconate (Chlorhexidine 2% Cloth) 3 pack TOPICAL DAILY@0400 PRN PRN Reason: Extra cloth needed Stop: 10/16/18 03:59 Enoxaparin Sodium (Lovenox Inj) 40 mg SQ Q24H [facility] Last Admin: 10/11/18 21:57 Dose: 40 mg Furosemide (Lasix Inj) 40 mg IV.PUSH DAILY [facility] Levetiracetam (Keppra) 500 mg PO BID [facility] Last Admin: 10/12/18 08:50 Dose: 500 mg Methylprednisolone Sodium Succinate (Solumedrol Inj) 60 mg IV.PUSH Q12HR [facility] Last Admin: 10/12/18 08:50 Dose: 60 mg Metoprolol Succinate (Toprol Xl) 25 mg PO DAILY [facility] Last Admin: 10/12/18 08:50 Dose: 25 mg Ondansetron HCl (Zofran Inj) 4 mg IV.PUSH Q6H PRN PRN Reason: NAUSEA OR VOMITING Pantoprazole Sodium (Protonix) 40 mg PO BID [facility] Last Admin: 10/12/18 08:50 Dose: 40 mg Sodium Chloride (Ns Flush) 2 ml IV.FLUSH BID [facility] Last Admin: 10/12/18 08:51 Dose: 2 ml Sodium Chloride (Ns Flush) 2 ml IV.FLUSH PRN PRN PRN Reason: FLUSH AFTER USING IV ACCESS Allergies Allergy/AdvReac Type Severity Reaction Status Date / Time ketoconazole AdvReac Intermediate Verified 10/25/17 10:58 UNKNOWN NARCOTIC Allergy Intermediate Rash Uncoded 08/10/15 13:02 Physical Exam Vital signs: Vital Signs 10/11/18 11:00 10/11/18 11:01 10/11/18 12:00 Temperature Pulse Rate 94 H 94 H 94 H Respiratory Rate 36 H 39 H Blood Pressure 138/104 H Pulse Oximetry 91 L 91 L 10/11/18 12:19 10/11/18 12:35 10/11/18 13:00 Temperature Pulse Rate 92 H 92 H 97 H Respiratory Rate 120 H 30 H Blood Pressure 118/61 Pulse Oximetry 92 L 95 93 L 10/11/18 13:05 10/11/18 14:00 10/11/18 15:00 Temperature Pulse Rate 99 H 91 H 87 Respiratory Rate 32 H 27 H 137 H Blood Pressure 115/55 L 118/57 L 104/63 Pulse Oximetry 90 L 93 L 94 L 10/11/18 15:20 10/11/18 16:00 10/11/18 16:01 Temperature 98.7 F Pulse Rate 87 87 Respiratory Rate 26 H 55 H Blood Pressure 129/68 129/68 Pulse Oximetry 95 94 L 93 L 10/11/18 17:00 10/11/18 18:00 10/11/18 19:00 Temperature Pulse Rate 83 94 H 94 H Respiratory Rate 36 H 132 H 32 H Blood Pressure 112/64 111/78 118/58 L Pulse Oximetry 93 L 90 L 94 L 10/11/18 20:00 10/11/18 21:00 10/11/18 21:31 Temperature 97.9 F Pulse Rate 97 H 86 Respiratory Rate 140 H 121 H Blood Pressure 123/65 112/65 Pulse Oximetry 93 L 92 L 94 L 10/11/18 22:00 10/11/18 23:00 10/11/18 23:55 Temperature Pulse Rate 85 79 Respiratory Rate 47 H 143 H Blood Pressure 110/63 106/62 Pulse Oximetry 95 97 95 10/12/18 00:00 10/12/18 01:00 10/12/18 01:01 Temperature 97.8 F Pulse Rate 76 82 93 H Respiratory Rate 142 H 70 H 95 H Blood Pressure 116/74 135/68 Pulse Oximetry 91 L 95 96 10/12/18 02:00 10/12/18 03:00 10/12/18 04:00 Temperature 97.4 F L Pulse Rate 80 74 78 Respiratory Rate 23 39 H 19 Blood Pressure 123/66 138/66 141/76 H Pulse Oximetry 94 L 91 L 96 10/12/18 06:00 Temperature Pulse Rate 73 Respiratory Rate Blood Pressure Pulse Oximetry Intake & Output 10/11/18 10/12/18 10/12/18 18:59 06:59 18:59 Intake Total 450 / 450 60 / 60 Output Total 1850 / 1850 1250 / 1250 Balance -1400 / -1400 -1190 / -1190 Weight 270 lb 1.06 oz Intake: IV 100 / 100 Magnesium Sulfate Inj 2 GM In 100 / 100 NS Inj 96 ML @ 50 mls/hr IV.SIG ONCE ONE Rx#:[id number] Oral 350 / 350 60 / 60 Output: Urine Amount (Catheter) 1849 1250 / 1250 Female External 1849 1250 / 1250 Other: # Incontinent Voids 1 Date of Last Bowel Movement 10/10/18 10/11/18 # Bowel Movements 0 1 Narrative: GENERAL: Well-developed well-nourished. Obese. In no acute distress. NECK: No carotid bruits. No JVD. CARDIOVASCULAR: Regular rate and rhythm. No murmur appreciated. RESPIRATORY: No accessory muscle use. Clear to auscultation. Breath sounds equal bilaterally. MUSCULOSKELETAL: No clubbing or cyanosis. 2+ ankle edema. NEUROLOGICAL: Awake and alert. Normal speech. - Urinary Catheter Management Female External Cath placed during this visit: no Results 10/11/18 05:55 10/12/18 04:16 Cardiac Enzymes 10/10/18 10/10/18 10/11/18 Range/Units 18:00 18:00 00:30 AST 35 (15-37) U/L Troponin I 0.05 0.05 (0.02-0.05) ng/mL B-Natriuretic Peptide 147 H (0-100) pg/mL 10/11/18 Range/Units 05:55 AST (15-37) U/L Troponin I 0.04 (0.02-0.05) ng/mL B-Natriuretic Peptide (0-100) pg/mL Coagulation 10/10/18 10/10/18 Range/Units 18:00 18:00 PT 10.8 (9.8-11.6) sec APTT 22.9 L (23.4-31.7) sec B-Natriuretic Peptide 147 H (0-100) pg/mL CBC 10/10/18 10/11/18 Range/Units 18:00 05:55 WBC 6.9 6.2 (4.0-11.0) th/mm3 RBC 3.77 L 3.52 L (4.00-5.30) mil/mm3 Hgb 12.3 11.6 (11.6-15.3) gm/dL Hct 36.5 34.2 L (35.0-46.0) % Plt Count 188 163 (150-450) th/mm3 Neut # (Auto) 3.8 3.5 (1.8-7.7) th/mm3 Lymph # (Auto) 3.0 2.2 (1.0-4.8) th/mm3 [place] # (Auto) 0.5 0.4 (0.0-0.9) th/mm3 Eos # (Auto) 0.0 0.0 (0.0-0.4) th/mm3 Baso # (Auto) 0.0 0.0 (0.0-0.2) th/mm3 Comprehensive Metabolic Panel 10/10/18 10/11/18 10/12/18 Range/Units 18:00 05:55 04:16 Sodium 137 141 139 (136-145) meq/L Potassium 3.8 3.3 L 3.5 (3.5-5.1) meq/L Chloride 100 101 98 (98-107) meq/L Carbon Dioxide 30.2 34.2 H 35.2 H (21.0-32.0) meq/L BUN 20 H 17 20 H (7-18) mg/dL Creatinine 0.65 0.58 0.64 (0.50-1.00) mg/dL Calcium 8.6 8.3 L 8.6 (8.5-10.1) mg/dL AST 35 (15-37) U/L ALT 73 H (10-53) U/L Alkaline Phosphatase 91 (45-117) U/L Total Protein 6.4 (6.4-8.2) g/dL Albumin 2.7 L (3.4-5.0) g/dL Intake and Output 10/11/18 10/12/18 10/12/18 22:59 06:59 14:59 Intake Total 350 / 350 60 / 60 Output Total 1849 1250 / 1250 Balance -1500 / -1500 -1190 / -1190 Intake: Oral 350 / 350 60 / 60 Output: Urine Amount (Catheter) 1849 1250 / 1250 Female External 1849 1250 / 1250 Other: # Incontinent Voids 1 Date of Last Bowel Movement 10/11/18 10/11/18 # Bowel Movements 0 1 Weight 270 lb 1.06 oz - Imaging and Cardiology Imaging: Impressions Chest X-Ray 10/10/18 17:58 CONCLUSION: 1. Cardiomegaly with mild positive fluid balance. Chest CTA 10/10/18 18:35 CONCLUSION: 1. No CT evidence for pulmonary artery embolism as questioned. 2. Cardiomegaly with mild pulmonary edema pattern. Head MRI 10/11/18 00:00 CONCLUSION: 1. Interval improvement. Metastatic disease is smaller with less enhancement and less edema. Venous Doppler Study 10/11/18 00:00 CONCLUSION: 1. Negative for deep venous thrombosis Assessment and Plan - Plan Assessment: --Dyspnea, suspect secondary to hypervolemic state. Echocardiogram with grossly normal LV function. She has been utilizing systemic steroids for some time which may contribute to volume retention. Her dyspnea is likely compounded by her morbid obesity and possible obesity hypoventilation syndrome and likely EVA. --Episode of nonsustained ventricular tachycardia. Likely secondary to hypervolemic state. No further episodes with beta-cecilia addition/diuresis. Recommendations: Agree with IV diuretic therapy which may be titrated for I/O net negative 2-3 L daily until creatinine bumps. Continue beta-cecilia with metoprolol succinate 25 mg daily Maintain K+ > 4, Mg >2 Continue telemetry monitoring Nothing further add from a cardiology perspective at this time. Will sign off, please call with any questions Discussed Condition With: Patient seen and examined with Dr. Lyman
--- NOTE | 2018-10-12 12:19 | P.PNONC ---
Subjective Interval history: Since starting the steroids she feels better. She no longer has the feeling of suffocation. Objective Vital Signs/Intake & Output: Vital Signs 10/11/18 12:19 10/11/18 12:35 10/11/18 13:00 Temperature Pulse Rate 92 H 92 H 97 H Respiratory Rate 120 H 30 H Blood Pressure 118/61 Pulse Oximetry 92 L 95 93 L 10/11/18 13:05 10/11/18 14:00 10/11/18 15:00 Temperature Pulse Rate 99 H 91 H 87 Respiratory Rate 32 H 27 H 137 H Blood Pressure 115/55 L 118/57 L 104/63 Pulse Oximetry 90 L 93 L 94 L 10/11/18 15:20 10/11/18 16:00 10/11/18 16:01 Temperature 98.7 F Pulse Rate 87 87 Respiratory Rate 26 H 55 H Blood Pressure 129/68 129/68 Pulse Oximetry 95 94 L 93 L 10/11/18 17:00 10/11/18 18:00 10/11/18 19:00 Temperature Pulse Rate 83 94 H 94 H Respiratory Rate 36 H 132 H 32 H Blood Pressure 112/64 111/78 118/58 L Pulse Oximetry 93 L 90 L 94 L 10/11/18 20:00 10/11/18 21:00 10/11/18 21:31 Temperature 97.9 F Pulse Rate 97 H 86 Respiratory Rate 140 H 121 H Blood Pressure 123/65 112/65 Pulse Oximetry 93 L 92 L 94 L 10/11/18 22:00 10/11/18 23:00 10/11/18 23:55 Temperature Pulse Rate 85 79 Respiratory Rate 47 H 143 H Blood Pressure 110/63 106/62 Pulse Oximetry 95 97 95 10/12/18 00:00 10/12/18 01:00 10/12/18 01:01 Temperature 97.8 F Pulse Rate 76 82 93 H Respiratory Rate 142 H 70 H 95 H Blood Pressure 116/74 135/68 Pulse Oximetry 91 L 95 96 10/12/18 02:00 10/12/18 03:00 10/12/18 04:00 Temperature 97.4 F L Pulse Rate 80 74 78 Respiratory Rate 23 39 H 19 Blood Pressure 123/66 138/66 141/76 H Pulse Oximetry 94 L 91 L 96 10/12/18 06:00 10/12/18 08:00 10/12/18 10:00 Temperature 97.6 F Pulse Rate 73 74 80 Respiratory Rate 175 H Blood Pressure 145/70 H Pulse Oximetry 90 L Intake & Output 10/11/18 10/12/18 10/12/18 18:59 06:59 18:59 Intake Total 450 / 450 60 / 60 Output Total 1850 / 1850 1250 / 1250 Balance -1400 / -1400 -1190 / -1190 Weight 122.5 kg Intake: IV 100 / 100 Magnesium Sulfate Inj 2 GM In 100 / 100 NS Inj 96 ML @ 50 mls/hr IV.SIG ONCE ONE Rx#:[id number] Oral 350 / 350 60 / 60 Output: Urine Amount (Catheter) 1849 1250 / 1250 Female External 1849 1250 / 1250 Other: # Incontinent Voids 1 Date of Last Bowel Movement 10/10/18 10/11/18 10/11/18 # Bowel Movements 0 1 Result Diagrams: 10/11/18 05:55 10/12/18 04:16 Laboratory Results: Laboratory Results - last 24 hr 10/12/18 04:16 Sodium 139 Potassium 3.5 Chloride 98 Carbon Dioxide 35.2 H Anion Gap 6 BUN 20 H Creatinine 0.64 Estimated GFR Greater than 89 Random Glucose 190 H Calcium 8.6 Phosphorus 3.6 Magnesium 2.0 Imaging Studies: Impressions Head MRI 10/11/18 00:00 CONCLUSION: 1. Interval improvement. Metastatic disease is smaller with less enhancement and less edema. Medications: Active Medications Generic Name Dose Route Start Last Admin Trade Name Freq PRN Reason Stop Dose Admin Chlorhexidine Gluconate 3 pack 10/11/18 04:00 10/12/18 04:44 Chlorhexidine 2% Cloth TOPICAL 10/16/18 03:59 3 pack DAILY@0400 [facility] Administration Enoxaparin Sodium 40 mg 10/10/18 21:45 10/11/18 21:57 Lovenox Inj SQ 40 mg Q24H [facility] Administration Levetiracetam 500 mg 10/11/18 09:00 10/12/18 08:50 Keppra PO 500 mg BID [facility] Administration Methylprednisolone Sodium Succinate 60 mg 10/11/18 10:00 10/12/18 08:50 Solumedrol Inj IV.PUSH 60 mg Q12HR [facility] Administration Metoprolol Succinate 25 mg 10/11/18 09:00 10/12/18 08:50 Toprol Xl PO 25 mg DAILY [facility] Administration Pantoprazole Sodium 40 mg 10/11/18 09:00 10/12/18 08:50 Protonix PO 40 mg BID [facility] Administration Sodium Chloride 2 ml 10/11/18 09:00 10/12/18 08:51 Ns Flush IV.FLUSH 2 ml BID [facility] Administration Objective Remarks: GENERAL: Obese, bedridden, comfortable. No movement of right arm. SKIN: Warm and dry. HEAD: Normocephalic. EYES: No scleral icterus. No injection or drainage. NECK: Supple, trachea midline. No JVD or lymphadenopathy. LYMPHATIC: No adenopathy. CARDIOVASCULAR: Regular rate and rhythm without murmurs. RESPIRATORY: Few dry basilar rales. No respiratory distress. GASTROINTESTINAL: Obese and abdominal exam shows no tenderness or enlargement of organs EXTREMITIES: +1 edema MUSCULOSKELETAL: Muscle tone poor NEUROLOGICAL: Little or no movement of the right arm which is old PSYCHIATRIC: Appropriate mood and affect; insight and judgment normal. Assessment/Plan - Plan 1: Since starting Solu-Medrol she feels much better. O2 sats are not much different. Will continue the Solu-Medrol and follow her clinical course. At some point in the future will repeat the CT scan of the thorax without contrast. Working diagnosis remains pneumonitis related to Herceptin/pertuzumab 2: The MRI of the brain shows improvement. There are no new lesions. 3: Metastatic breast cancer-any further treatment will be as an outpatient.
--- NOTE | 2018-10-12 19:58 | ECG ---
Date Performed: 10/11/2018 Time Performed: 00:10:00 PTAGE: 57 years EKG: Sinus rhythm . Intraventricular conduction delay Cannot exclude inferior Myocardial infarction of undetermined age Poor R wave progression across the precordium Nonspecific ST-T wave changes Since the previous christopher ng, no significant change noted Abnormal ECG NO PREVIOUS TRACING DOCTOR: Thomas Nguyen Interpretating Date/Time 10/12/2018 19:57:30
--- NOTE | 2018-10-12 19:58 | ECG ---
Date Performed: 10/10/2018 Time Performed: 18:26:17 PTAGE: 57 years EKG: Sinus rhythm Intraventricular conduction delay Nonspecific T wave changes Small inferior Q waves of undetermined significance Compared to PREVIOUS TRACING , the T wave changes in V1 and V3 with T wave inversion. Previous tracin g showed too much artifact. Clinical correlation is recommended. These changes are nonspecific PREVIO US TRACIN08/09/2018 18.55 DOCTOR: Thomas Nguyen Interpretating Date/Time 10/12/2018 19:56:29
--- NOTE | 2018-10-12 20:00 | ECG ---
Date Performed: 10/11/2018 Time Performed: 10:55:54 PTAGE: 57 years EKG: Sinus rhythm . Intraventricular conduction delay T wave changes anteriorly are nonspecific, with T wave inversions Small inferior Q waves on undetermined significance Low QRS voltages in precordial leads Since the p revious tracing, no significant change noted ABNORMAL ECG PREVIOUS TRACING : 10/11/2018 05.47 DOCTOR: Thomas Nguyen Interpretating Date/Time 10/12/2018 19:59:02
--- NOTE | 2018-10-12 20:00 | ECG ---
Date Performed: 10/11/2018 Time Performed: 05:47:34 PTAGE: 57 years EKG: Sinus rhythm . Intraventricular conduction delay T wave changes anteriorly are nonspecific Small inferior Q waves on undetermined significance Low QRS voltages in precordial leads Since the previous tracing, no sign ificant change noted Borderline ECG PREVIOUS TRACING : 10/10/2018 18.26 DOCTOR: Thomas Nguyen Interpretating Date/Time 10/12/2018 19:58:42
[2018-10-12] MEDS: Enoxaparin Inj 40 MG/0.4 ML Syringe SQ SCH (21:03)
[2018-10-13 06:41] LABS: Anion Gap 7 meq/L (5-15); Blood Urea Nitrogen 20 mg/dL (7-18); Carbon Dioxide 34.9 meq/L (21.0-32.0); Chloride 94 meq/L (98-107); Glomerular Filtration Rate Greater Than 89 mL/min (>89); Glucose,Random 197 mg/dL (74-106); Potassium 3.3 meq/L (3.5-5.1); Sodium 136 meq/L (136-145)
[2018-10-13] MEDS: MethylPREDNISolone Sod Succinate Inj 125 MG/2 ML Vial IV.PUSH SCH ×2 (08:03→20:17)
[2018-10-13] MEDS: levETIRAcetam 500 MG Tablet PO SCH ×2 (08:04→20:17)
[2018-10-13] MEDS: Chlorhexidine Gluconate 2% 1 Pack (2 Cloths) TOPICAL SCH (08:48)
--- NOTE | 2018-10-13 09:09 | P.PNFP ---
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 Today feels "so-so." Fatigued. SOB improving. No CP. She did need BiPAP last night and had it on while asleep but is off it this morning. Breathing comfortably on NC. <Paras BradyEduin S - 10/13/18 09:09> Results - Labs Result diagrams: 10/11/18 05:55 10/15/18 04:35 <Chanel Bhatt - 10/16/18 10:00> Abnormal lab results 10/13/18 Range/Units 05:10 Potassium 3.3 L (3.5-5.1) meq/L Chloride 94 L (98-107) meq/L Carbon Dioxide 34.9 H (21.0-32.0) meq/L BUN 20 H (7-18) mg/dL Random Glucose 197 H (74-106) mg/dL BMP 10/13/18 05:10 Sodium 136 Potassium 3.3 L Chloride 94 L Carbon Dioxide 34.9 H BUN 20 H Creatinine 0.63 Calcium 9.0 <Paras BradyEduin S - 10/13/18 09:09> Physical Exam Vital signs: Vital Signs 10/15/18 11:00 10/15/18 11:11 10/15/18 11:21 Temperature 97.5 F L Pulse Rate 69 76 Respiratory Rate 18 Blood Pressure 122/62 Pulse Oximetry 94 L 95 10/15/18 15:00 10/15/18 15:17 10/15/18 20:00 Temperature 98.3 F 97.9 F Pulse Rate 74 76 86 Respiratory Rate 18 16 Blood Pressure 136/73 119/56 L Pulse Oximetry 94 L 95 10/15/18 23:32 10/16/18 00:00 10/16/18 00:04 Temperature 97.5 F L Pulse Rate 76 65 Respiratory Rate 16 16 Blood Pressure 139/71 Pulse Oximetry 96 10/16/18 03:26 10/16/18 04:00 10/16/18 04:07 Temperature 97.7 F Pulse Rate 76 Respiratory Rate 16 16 Blood Pressure 125/62 Pulse Oximetry 95 96 10/16/18 04:49 Temperature Pulse Rate 64 Respiratory Rate Blood Pressure Pulse Oximetry Intake & Output 10/15/18 10/16/18 10/16/18 18:59 06:59 18:59 Intake Total 1680 / 1680 Output Total 3202 / 3202 100 / 100 Balance -1522 / -1522 -100 / -100 Weight 121.1 kg Intake: Oral 1680 / 1680 Output: Urine 802 / 802 100 / 100 Urine Amount (Catheter) 2400 / 2400 Female External 2400 / 2400 Other: # Voids 1 Date of Last Bowel Movement 10/15/18 10/15/18 <Chanel Bhatt - 10/16/18 10:00> Vital Signs 10/12/18 10:00 10/12/18 12:00 10/12/18 14:00 Temperature 98.1 F Pulse Rate 80 79 79 Respiratory Rate 24 Blood Pressure 122/69 Pulse Oximetry 92 L 10/12/18 16:00 10/12/18 17:00 10/12/18 18:00 Temperature 98 F Pulse Rate 80 78 78 Respiratory Rate 118 H 25 H 51 H Blood Pressure 125/78 131/73 128/77 Pulse Oximetry 92 L 93 L 94 L 10/12/18 19:00 10/12/18 20:00 10/12/18 21:00 Temperature 97.5 F L Pulse Rate 82 77 79 Respiratory Rate 26 H 29 H 130 H Blood Pressure 120/77 127/72 118/75 Pulse Oximetry 93 L 93 L 93 L 10/12/18 22:00 10/12/18 22:01 10/12/18 22:38 Temperature Pulse Rate 73 73 Respiratory Rate 101 H 107 H Blood Pressure 137/73 Pulse Oximetry 91 L 91 L 97 10/12/18 23:00 10/13/18 00:00 10/13/18 01:00 Temperature Pulse Rate 72 68 72 Respiratory Rate 104 H 19 21 Blood Pressure 132/77 140/72 145/77 H Pulse Oximetry 97 96 96 10/13/18 02:00 10/13/18 03:00 10/13/18 04:00 Temperature 98.6 F Pulse Rate 68 72 67 Respiratory Rate 22 19 19 Blood Pressure 134/66 146/69 H 126/69 Pulse Oximetry 95 97 95 10/13/18 05:00 10/13/18 06:00 10/13/18 08:24 Temperature Pulse Rate 72 69 Respiratory Rate 16 Blood Pressure 139/81 Pulse Oximetry 96 94 L Intake & Output 10/12/18 10/13/18 10/13/18 18:59 06:59 18:59 Intake Total 440 / 440 420 / 420 Output Total 1150 / 1150 625 / 625 Balance -710 / -710 -205 / -205 Weight 121.5 kg Intake: Oral 440 / 440 420 / 420 Output: Urine 625 / 625 Urine Amount (Catheter) 1150 / 1150 Female External 1150 / 1150 Other: # Incontinent Voids 1 Date of Last Bowel Movement 10/11/18 10/11/18 # Bowel Movements 0 <Crain R3,Eduin S - 10/13/18 09:09> - Constitutional no acute distress, morbidly obese, cooperative <Crain R3,Eduin S - 10/13/18 09:09> - Routine HEENT Exam ENT: Present: mucous membranes moist <Crain R3,Eduin S - 10/13/18 09:09> - Routine Respiratory Exam Present: CTA bilaterally. Absent: accessory muscle use, wheezes, crackles < Crain R3,Eduin S - 10/13/18 09:09> - Routine Cardiovascular Exam Present: RRR, S1, S2, murmur <Crain R3,Eduin S - 10/13/18 09:09> - Routine Extremities Exam Present: edema (trace to BLE, improving). Absent: cyanosis <Crain R3,Eduin S - 10/13/18 09:09> - Routine Skin Exam Present: intact, dry <Crain R3,Eduin S - 10/13/18 09:09> - Routine Neurological Exam Present: alert, normal speech. Absent: altered mental status, moving all extremities (does not move RUE at baseline) <Crain R3,Eduin S - 10/13/18 09: 09> - Urinary Catheter Management Female External Cath placed during this visit: no <Chanel Bhatt - 10/16/18 10:00> no <Eduin Lopes S - 10/13/18 09:09> Assessment and Plan - Assessment (1) Shortness of breath Code(s): R06.02 - Shortness of breath Status: Resolved (2) Pneumonitis Code(s): J18.9 - Pneumonia, unspecified organism Status: Acute (3) Metastatic breast cancer Code(s): C50.919 - Malignant neoplasm of unspecified site of unspecified female breast Status: Chronic (4) Essential hypertension Code(s): I10 - Essential (primary) hypertension Status: Chronic <Chanel Bhatt - 10/16/18 10:00> (1) Shortness of breath Code(s): R06.02 - Shortness of breath Status: Resolved (2) Pneumonitis Code(s): J18.9 - Pneumonia, unspecified organism Status: Acute (3) Metastatic breast cancer Code(s): C50.919 - Malignant neoplasm of unspecified site of unspecified female breast Status: Chronic (4) Essential hypertension Code(s): I10 - Essential (primary) hypertension Status: Chronic <Eduin Lopes S - 10/13/18 09:02> - Assessment and Plan 57 yo with metastatic breast cancer admitted with: Shortness of breath - resolved CT finding suggestive of pneumonitis (ground glass opacities) consistent with chemotherapy side effect Clinically slightly volume overloaded and improved somewhat with diuresis, however no pulmonary edema on CT Echo with grossly low-normal EF, difficult study due to body habitus -1.1 L fluid balance yesterday, 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 Vanessa, likely this is side effect of her chemotherapy * Continue Solu-medrol 60 mg IV BID * Monitor vitals, titrate O2 PRN Metastatic breast cancer Currently treated with chemotherapy per Dr. 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 * Further treatment of cancer as outpatient Hypertension * Continue metoprolol FEN/PPX Fluid: PO only, no running IVF Elecs: Replace per unit protocol Nutrition: Regular diet as tolerated DVT: Lovenox GI: Protonix BID Pain: Tylenol, [place] PRN <Eduin Lopes S - 10/13/18 09:09> Discharge Planning: Likely transfer out of ICU today; expect 2-3 days in hospital with ultimate discharge home, possibly with home health <Paras Eduin Brady S - 10/13/18 09:09> - Attending Attestation The exam, history, and the medical decision-making described in the above note were completed with the assistance of the resident physician. I reviewed and agree with the findings presented. I attest that I had a [id number] encounter with the patient on the same day, and personally performed and documented my assessment and findings in the medical record. discussed with her that she could have sleep apnea as she only required bipap when she was sleeping. "They woke me up to put that mask on." advised her to get this evaluated as an outpt when she can <Chanel Bhatt - 10/16/18 10:00>
--- NOTE | 2018-10-13 10:10 | P.PNONC ---
Subjective Interval history: Afebrile. Patient awake and alert lying in bed, no acute distress. Denies any shortness of breath. She feels her breathing has improved. She is currently on 5 L nasal cannula with an O2 sat of 94%. She did require BiPAP in the night, may have underlying sleep apnea. She is aware that she may need sleep study once discharged. Her attending has cleared her to be transferred to the oncology floor. Objective Vital Signs/Intake & Output: Vital Signs 10/12/18 12:00 10/12/18 14:00 10/12/18 16:00 Temperature 98.1 F 98 F Pulse Rate 79 79 80 Respiratory Rate 24 118 H Blood Pressure 122/69 125/78 Pulse Oximetry 92 L 92 L 10/12/18 17:00 10/12/18 18:00 10/12/18 19:00 Temperature 97.5 F L Pulse Rate 78 78 82 Respiratory Rate 25 H 51 H 26 H Blood Pressure 131/73 128/77 120/77 Pulse Oximetry 93 L 94 L 93 L 10/12/18 20:00 10/12/18 21:00 10/12/18 22:00 Temperature Pulse Rate 77 79 73 Respiratory Rate 29 H 130 H 101 H Blood Pressure 127/72 118/75 Pulse Oximetry 93 L 93 L 91 L 10/12/18 22:01 10/12/18 22:38 10/12/18 23:00 Temperature Pulse Rate 73 72 Respiratory Rate 107 H 104 H Blood Pressure 137/73 132/77 Pulse Oximetry 91 L 97 97 10/13/18 00:00 10/13/18 01:00 10/13/18 02:00 Temperature Pulse Rate 68 72 68 Respiratory Rate 19 21 22 Blood Pressure 140/72 145/77 H 134/66 Pulse Oximetry 96 96 95 10/13/18 03:00 10/13/18 04:00 10/13/18 05:00 Temperature 98.6 F Pulse Rate 72 67 72 Respiratory Rate 19 19 16 Blood Pressure 146/69 H 126/69 139/81 Pulse Oximetry 97 95 96 10/13/18 06:00 10/13/18 08:24 Temperature Pulse Rate 69 Respiratory Rate Blood Pressure Pulse Oximetry 94 L Intake & Output 10/12/18 10/13/18 10/13/18 18:59 06:59 18:59 Intake Total 440 / 440 420 / 420 Output Total 1150 / 1150 625 / 625 Balance -710 / -710 -205 / -205 Weight 121.5 kg Intake: Oral 440 / 440 420 / 420 Output: Urine 625 / 625 Urine Amount (Catheter) 1150 / 1150 Female External 1150 / 1150 Other: # Incontinent Voids 1 Date of Last Bowel Movement 10/11/18 10/11/18 # Bowel Movements 0 Result Diagrams: 10/11/18 05:55 10/13/18 05:10 Laboratory Results: Laboratory Results - last 24 hr 10/13/18 05:10 Sodium 136 Potassium 3.3 L Chloride 94 L Carbon Dioxide 34.9 H Anion Gap 7 BUN 20 H Creatinine 0.63 Estimated GFR Greater than 89 Random Glucose 197 H Calcium 9.0 Medications: Active Medications Generic Name Dose Route Start Last Admin Trade Name Freq PRN Reason Stop Dose Admin Chlorhexidine Gluconate 3 pack 10/11/18 04:00 10/13/18 08:48 Chlorhexidine 2% Cloth TOPICAL 10/16/18 03:59 Not Given DAILY@0400 MACARIO Enoxaparin Sodium 40 mg 10/10/18 21:45 10/12/18 21:03 Lovenox Inj SQ 40 mg Q24H MACARIO Administration Levetiracetam 500 mg 10/11/18 09:00 10/13/18 08:04 Keppra PO 500 mg BID MACARIO Administration Methylprednisolone Sodium Succinate 60 mg 10/11/18 10:00 10/13/18 08:03 Solumedrol Inj IV.PUSH 60 mg Q12HR MACARIO Administration Metoprolol Succinate 25 mg 10/11/18 09:00 10/13/18 08:04 Toprol Xl PO 25 mg DAILY MACARIO Administration Pantoprazole Sodium 40 mg 10/11/18 09:00 10/13/18 08:04 Protonix PO 40 mg BID MACARIO Administration Sodium Chloride 2 ml 10/11/18 09:00 10/13/18 08:05 Ns Flush IV.FLUSH 2 ml BID MACARIO Administration Objective Remarks: GENERAL: Well-nourished, well-developed female patient, no acute distress. SKIN: Warm and dry. HEAD: Normocephalic. EYES: No scleral icterus. No injection or drainage. NECK: Supple, trachea midline. CARDIOVASCULAR: Regular rate and rhythm without murmurs. RESPIRATORY: Breath sounds clear, equal bilaterally. Nonlabored at rest. O2 via nasal cannula 5 L. GASTROINTESTINAL: Abdomen large, soft, non-tender, nondistended. EXTREMITIES: No cyanosis. Trace edema. MUSCULOSKELETAL: Adequate muscle tone. NEUROLOGICAL: No obvious focal deficit. Awake, alert, and oriented x3. PSYCHIATRIC: Appropriate mood and affect; insight and judgment normal. Assessment/Plan - Plan 1: Possible pneumonitis related to Herceptin/pertuzumab. Patient continues to improve since starting Solu-Medrol. She is currently on O2 via nasal cannula at 5 L. She did go on BiPAP last night. Discussed with attending, Dr. Bhatt , patient may have underlying sleep apnea. Once discharged she may benefit from a sleep study. We will continue to monitor O2 saturation. 2: The MRI of the brain shows improvement. There are no new lesions. 3: Patient is cleared for transfer out of the ICU. Awaiting oncology or CIC bed. Encourage early ambulation with assistance as tolerated. - Attending Statement The exam, history, and the medical decision-making described in the above note were completed with the assistance of the mid-level provider. I reviewed and agree with the findings presented. I attest that I had a [id number] encounter with the patient on the same day, and personally performed and documented my assessment and findings in the medical record. She is doing better. Breathing is less labored. Agree with transfer to the floor. I am concerned with the fact that she has been bedridden for several days and believe we need to get her out of bed in chair and begin physical therapy. In another 1 or 2 days will begin to taper the Solu-Medrol as I do not believe that she will need 60 mg every 12 hours. In 3 or 4 days will recommend repeating a CT of the thorax without contrast to see if the pulmonary infiltrates are improving. The major problem going forward will be, if this is in fact an allergic reaction to Herceptin, it will be difficult to treat her as this is an enormously effective drug for this woman who is HER-2/bowen positive.
--- NOTE | 2018-10-13 10:17 | P.PNADD ---
Addendum to Inpatient Note Reason for Addendum: Additional Documentation Additional information: This note is to serve as summary of care for incoming Family Medicine team Ms. Olvera is a very pleasant 57 yo woman with current metastatic breast cancer treated by oncologist Dr. Vanessa with Herceptin/pertuzumab. She presented to the ER on 10/10 due to severe dyspnea requiring BiPAP. CTA of the chest showed severe interstitial pneumonitis which was felt to be due to her chemotherapy. Steroid treatment with IV solu-medrol was begun and she is beginning to improve. At time of writing she is being transferred out of the ICU to the oncology floor / CIC. She will likely continue to need CPAP/BiPAP at night as she may have a component of EVA or obesity hypoventilation syndrome. Due to her initial presentation cardiology was consulted on admission. Echocardiogram showed low-normal EF (technically limited study due to body habitus). Diuretic therapy was begun on admission, but this has been weaned by the FM team due to clinical dehydration (dry skin / tenting) and her underlying problem causing SOB likely being pneumonitis rather than pulmonary edema. PCP: Dr. Eduin Crain
[2018-10-13] MEDS ORDERED: Potassium Chloride 25 MEQ Effervescent Tablet PO ONE (11:25)
[2018-10-13] MEDS: Enoxaparin Inj 40 MG/0.4 ML Syringe SQ SCH (21:01)
[2018-10-14 05:36] LABS: Anion Gap 3 meq/L (5-15); Blood Urea Nitrogen 22 mg/dL (7-18); Calcium 8.6 mg/dL (8.5-10.1); Carbon Dioxide 38.8 meq/L (21.0-32.0); Chloride 95 meq/L (98-107); Glomerular Filtration Rate Greater Than 89 mL/min (>89); Glucose,Random 219 mg/dL (74-106); Potassium 3.5 meq/L (3.5-5.1); Sodium 137 meq/L (136-145)
[2018-10-14] MEDS: Chlorhexidine Gluconate 2% 1 Pack (2 Cloths) TOPICAL SCH (05:56)
--- NOTE | 2018-10-14 09:09 | P.PNFP ---
Subjective Interval history: Patient seen and examined bedside this morning. Patient overall doing well and her shortness of breath is continuing to improve. Last night she was very uncomfortable with the BiPAP machine and requested that it be taken off. She was placed on nasal cannula and was very comfortable all night and was allowed to stay on nasal cannula. She is very happy about this change. She thinks that the big thing holding up her discharge is going to be her starting to move again. She would like to work with physical therapy and get to a point where she would feel comfortable at home. She is a very afraid of falls at home. <Cindy Ambrose - 10/14/18 09:09> Results - Labs Result diagrams: 10/11/18 05:55 10/14/18 04:00 <Inocente Gilbert - 10/14/18 12:00> Abnormal lab results 10/14/18 Range/Units 04:00 Chloride 95 L (98-107) meq/L Carbon Dioxide 38.8 H (21.0-32.0) meq/L Anion Gap 3 L (5-15) meq/L BUN 22 H (7-18) mg/dL Random Glucose 219 H (74-106) mg/dL BMP 10/14/18 04:00 Sodium 137 Potassium 3.5 Chloride 95 L Carbon Dioxide 38.8 H BUN 22 H Creatinine 0.64 Calcium 8.6 <Inocente Gilbert - 10/14/18 12:00> Abnormal lab results 10/14/18 Range/Units 04:00 Chloride 95 L (98-107) meq/L Carbon Dioxide 38.8 H (21.0-32.0) meq/L Anion Gap 3 L (5-15) meq/L BUN 22 H (7-18) mg/dL Random Glucose 219 H (74-106) mg/dL BMP 10/14/18 04:00 Sodium 137 Potassium 3.5 Chloride 95 L Carbon Dioxide 38.8 H BUN 22 H Creatinine 0.64 Calcium 8.6 <Cindy Ambrose - 10/14/18 09:09> Physical Exam Vital signs: Vital Signs 10/13/18 12:00 10/13/18 13:00 10/13/18 14:00 Temperature Pulse Rate 74 85 79 Respiratory Rate 18 20 20 Blood Pressure 116/57 L 120/55 L 116/62 Pulse Oximetry 93 L 93 L 91 L 10/13/18 15:00 10/13/18 16:00 10/13/18 16:02 Temperature Pulse Rate 84 75 81 Respiratory Rate 23 14 Blood Pressure 132/68 Pulse Oximetry 91 L 92 L 10/13/18 16:04 10/13/18 17:00 10/13/18 18:00 Temperature Pulse Rate 80 75 78 Respiratory Rate 18 20 80 H Blood Pressure 142/76 H Pulse Oximetry 94 L 94 L 92 L 10/13/18 20:00 10/13/18 21:30 10/13/18 22:29 Temperature 99 F 98.1 F Pulse Rate 74 85 Respiratory Rate 22 20 Blood Pressure 120/69 147/82 H Pulse Oximetry 94 L 96 95 10/14/18 00:00 10/14/18 04:00 10/14/18 08:00 Temperature 98.1 F 97.5 F L 97.7 F Pulse Rate 77 76 72 Respiratory Rate 20 20 18 Blood Pressure 137/72 135/49 L 151/81 H Pulse Oximetry 96 96 94 L Intake & Output 10/13/18 10/14/18 10/14/18 18:59 06:59 18:59 Intake Total 200 / 200 Output Total 2199 / 2200 225 / 225 Balance -2200 / -2200 -25 / -25 Weight 121.1 kg Intake: Oral 200 / 200 Output: Urine 150 / 150 Stool 75 / 75 Urine Amount (Catheter) 0 / 2200 Female External 2200 / 2200 Other: Date of Last Bowel Movement 10/11/18 10/13/18 10/13/18 <Inocente Gilbert - 10/14/18 12:00> Vital Signs 10/13/18 09:00 10/13/18 09:01 10/13/18 10:00 Temperature Pulse Rate 77 79 81 Respiratory Rate 20 25 H 33 H Blood Pressure 172/73 H 133/63 Pulse Oximetry 92 L 92 L 90 L 10/13/18 11:00 10/13/18 12:00 10/13/18 13:00 Temperature Pulse Rate 77 74 85 Respiratory Rate 18 18 20 Blood Pressure 112/62 116/57 L 120/55 L Pulse Oximetry 91 L 93 L 93 L 10/13/18 14:00 10/13/18 15:00 10/13/18 16:00 Temperature Pulse Rate 79 84 75 Respiratory Rate 20 23 Blood Pressure 116/62 132/68 Pulse Oximetry 91 L 91 L 10/13/18 16:02 10/13/18 16:04 10/13/18 17:00 Temperature Pulse Rate 81 80 75 Respiratory Rate 14 18 20 Blood Pressure 142/76 H Pulse Oximetry 92 L 94 L 94 L 10/13/18 18:00 10/13/18 20:00 10/13/18 21:30 Temperature 99 F 98.1 F Pulse Rate 78 74 85 Respiratory Rate 80 H 22 20 Blood Pressure 120/69 147/82 H Pulse Oximetry 92 L 94 L 96 10/13/18 22:29 10/14/18 00:00 10/14/18 04:00 Temperature 98.1 F 97.5 F L Pulse Rate 77 76 Respiratory Rate 20 20 Blood Pressure 137/72 135/49 L Pulse Oximetry 95 96 96 10/14/18 08:00 Temperature 97.7 F Pulse Rate 72 Respiratory Rate 18 Blood Pressure 151/81 H Pulse Oximetry 97 Intake & Output 10/13/18 10/14/18 10/14/18 18:59 06:59 18:59 Intake Total 200 / 200 Output Total 2200 / 2200 225 / 225 Balance -2200 / -2200 -25 / -25 Weight 121.1 kg Intake: Oral 200 / 200 Output: Urine 150 / 150 Stool 75 / 75 Urine Amount (Catheter) 0 / 2200 Female External 2199 / 0 Other: Date of Last Bowel Movement 10/11/18 10/13/18 <Cindy Ambrose - 10/14/18 09:09> Narrative: GENERAL: Well-developed well-nourished. Obese. In no acute distress. Breathing comfortably on 5 L O2 nasal cannula. NECK: No carotid bruits. No JVD. Pain on palpation of neck or axillary area bilaterally. CARDIOVASCULAR: Regular rate and rhythm. No murmur appreciated. Chest wall: Status post right mastectomy. RESPIRATORY: No accessory muscle use. Clear to auscultation. Breath sounds equal bilaterally. Unable to auscultate posteriorly due to patient limitation. MUSCULOSKELETAL: No clubbing or cyanosis. Trace lower leg edema bilaterally. Much improved from prior. NEUROLOGICAL: Awake and alert. Normal speech. <Cindy Ambrose - 10/14/18 09:09> - Urinary Catheter Management Female External Cath placed during this visit: no <Inocente Gilbert - 10/14/18 12:00> no <Cindy Ambrose - 10/14/18 09:09> Assessment and Plan - Assessment (1) Shortness of breath Code(s): R06.02 - Shortness of breath Status: Resolved (2) Pneumonitis Code(s): J18.9 - Pneumonia, unspecified organism Status: Acute (3) Metastatic breast cancer Code(s): C50.919 - Malignant neoplasm of unspecified site of unspecified female breast Status: Chronic (4) Essential hypertension Code(s): I10 - Essential (primary) hypertension Status: Chronic <Inocente Gilbert - 10/14/18 12:00> (1) Shortness of breath Code(s): R06.02 - Shortness of breath Status: Resolved (2) Pneumonitis Code(s): J18.9 - Pneumonia, unspecified organism Status: Acute (3) Metastatic breast cancer Code(s): C50.919 - Malignant neoplasm of unspecified site of unspecified female breast Status: Chronic (4) Essential hypertension Code(s): I10 - Essential (primary) hypertension Status: Chronic <Cindy Ambrose - 10/14/18 08:50> - Assessment and Plan 57 yo with metastatic breast cancer admitted with: Shortness of breath - resolved CT finding suggestive of pneumonitis (ground glass opacities) consistent with chemotherapy side effect Clinically peripheral edema has improved after addition of Lasix Echo with grossly normal EF, valuated by cardiology consult; volume retention and dyspnea may be due to high volumes today. Recommending diuretic therapy for net 2-3 L negative daily. Continue metoprolol. Cardiology consult signing off. -2L fluid balance with improved peripheral edema * Continue O2 via NC, cont to encourage nursing to titrate and wean O2 * Consulted oncology, appreciate assistance * Treat pneumonitis as below * Consulted cardiology, appreciate recs * Continue diuresis for now * Continue beta-cecilia * May have component of EVA and/or obesity hypoventilation syndrome * Monitor I/O; do not want to diurese too aggressively as she does not seem to have CHF or pulmonary edema that caused the SOB * Continue Lasix to 40 mg IV daily Pneumonitis Discussed with oncologist Dr. Vanessa, likely this is side effect of her chemotherapy * Continue Solu-medrol 60 mg IV BID -oncology will likely start to wean this dosing beginning today or tomorrow * Monitor vitals, titrate O2 PRN * Plan to repeat with CT thorax in 3 days to recheck for pulmonary infiltrates * To reassess plan for chemotherapy if patient is allergic to Herceptin Metastatic breast cancer Currently treated with chemotherapy per Dr. 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 I reviewed and agree with the findings presented. I attest that I had a [id number] encounter with the patient on the same day, and personally performed and documented my assessment and findings in the medical record. Seen and examined, she feels a little better from respiratory standpoint, happy to be out of bed and working. no increased effort but still some mild b/l crackles Still on 3L O2. Steroids per oncology. Start lasix as 40mg PO daily and cont to monitor O2 requirements. Will diurese until we are more certain that that is not contributing to resp failure along with pneumonitis. <Inocente Gilbert - 10/14/18 12:00>
[2018-10-14] MEDS: MethylPREDNISolone Sod Succinate Inj 125 MG/2 ML Vial IV.PUSH SCH ×2 (11:04→20:44)
[2018-10-14] MEDS: levETIRAcetam 500 MG Tablet PO SCH ×2 (11:04→20:44)
[2018-10-14] MEDS: Furosemide 40 MG Tablet PO SCH (13:46)
--- NOTE | 2018-10-14 14:16 | P.PNONC ---
Subjective Interval history: She is feeling better. Spirits are better. Breathing is easier. Objective Vital Signs/Intake & Output: Vital Signs 10/13/18 15:00 10/13/18 16:00 10/13/18 16:02 Temperature Pulse Rate 84 75 81 Respiratory Rate 23 14 Blood Pressure 132/68 Pulse Oximetry 91 L 92 L 10/13/18 16:04 10/13/18 17:00 10/13/18 18:00 Temperature Pulse Rate 80 75 78 Respiratory Rate 18 20 80 H Blood Pressure 142/76 H Pulse Oximetry 94 L 94 L 92 L 10/13/18 20:00 10/13/18 21:30 10/13/18 22:29 Temperature 99 F 98.1 F Pulse Rate 74 85 Respiratory Rate 22 20 Blood Pressure 120/69 147/82 H Pulse Oximetry 94 L 96 95 10/14/18 00:00 10/14/18 04:00 10/14/18 08:00 Temperature 98.1 F 97.5 F L 97.7 F Pulse Rate 77 76 72 Respiratory Rate 20 20 18 Blood Pressure 137/72 135/49 L 151/81 H Pulse Oximetry 96 96 93 L 10/14/18 12:00 Temperature 97.5 F L Pulse Rate 84 Respiratory Rate 20 Blood Pressure 105/63 Pulse Oximetry 93 L Intake & Output 10/13/18 10/14/18 10/14/18 18:59 06:59 18:59 Intake Total 200 / 200 Output Total 2200 / 2200 225 / 225 Balance -2200 / -2200 -25 / -25 Weight 121.1 kg Intake: Oral 200 / 200 Output: Urine 150 / 150 Stool 75 / 75 Urine Amount (Catheter) 2200 / 2200 Female External 2200 / 2200 Other: Date of Last Bowel Movement 10/11/18 10/13/18 10/13/18 Result Diagrams: 10/11/18 05:55 10/14/18 04:00 Laboratory Results: Laboratory Results - last 24 hr 10/14/18 04:00 Sodium 137 Potassium 3.5 Chloride 95 L Carbon Dioxide 38.8 H Anion Gap 3 L BUN 22 H Creatinine 0.64 Estimated GFR Greater than 89 Random Glucose 219 H Calcium 8.6 Medications: Active Medications Generic Name Dose Route Start Last Admin Trade Name Freq PRN Reason Stop Dose Admin Chlorhexidine Gluconate 3 pack 10/11/18 04:00 10/14/18 05:56 Chlorhexidine 2% Cloth TOPICAL 10/16/18 03:59 Not Given DAILY@0400 [facility] Enoxaparin Sodium 40 mg 10/10/18 21:45 10/13/18 21:01 Lovenox Inj SQ 40 mg Q24H MACARIO Administration Furosemide 40 mg 10/14/18 11:45 10/14/18 13:46 Lasix PO 40 mg DAILY MACARIO Administration Levetiracetam 500 mg 10/11/18 09:00 10/14/18 11:04 Keppra PO 500 mg BID MACARIO Administration Metoprolol Succinate 25 mg 10/11/18 09:00 10/14/18 11:03 Toprol Xl PO 25 mg DAILY MACARIO Administration Pantoprazole Sodium 40 mg 10/11/18 09:00 10/14/18 11:03 Protonix PO 40 mg BID MACARIO Administration Sodium Chloride 2 ml 10/11/18 09:00 10/14/18 11:04 Ns Flush IV.FLUSH 2 ml BID MACARIO Administration Objective Remarks: GENERAL: More comfortable. SKIN: Warm and dry. HEAD: Normocephalic. EYES: No scleral icterus. No injection or drainage. NECK: Supple, trachea midline. No JVD or lymphadenopathy. LYMPHATIC: No adenopathy. CARDIOVASCULAR: Regular rate and rhythm without murmurs. RESPIRATORY: Basilar rales: GASTROINTESTINAL: Abdomen obese EXTREMITIES: Trace edema MUSCULOSKELETAL: Adequate muscle tone. NEUROLOGICAL: No movement right arm which is old PSYCHIATRIC: Appropriate mood and affect; insight and judgment normal. Assessment/Plan - Plan 1: Possible pneumonitis related to Herceptin/pertuzumab. Clinically she is better. Will begin to taper the steroids. I have decreased the Solu-Medrol to 50 every 12 hours. I will leave her at a larger dose than usual as the steroids are milligrams per kilogram and therefore 60 mg of prednisone will probably not be adequate for her. In several days will change to p.o. prednisone. Anticipate doing a CAT scan of the thorax in about 3 or 4 days. She will need continued physical therapy.
[2018-10-14] MEDS: Enoxaparin Inj 40 MG/0.4 ML Syringe SQ SCH (20:45)
[2018-10-15] MEDS: Chlorhexidine Gluconate 2% 1 Pack (2 Cloths) TOPICAL SCH (04:14)
[2018-10-15 06:44] LABS: Alanine Aminotransferase 40 U/L (10-53); Albumin 2.7 g/dL (3.4-5.0); Anion Gap 5 meq/L (5-15); Aspartate Aminotransferase 14 U/L (15-37); Blood Urea Nitrogen 19 mg/dL (7-18); Calcium 8.8 mg/dL (8.5-10.1); Carbon Dioxide 38.5 meq/L (21.0-32.0); Chloride 95 meq/L (98-107); Glomerular Filtration Rate Greater Than 89 mL/min (>89); Glucose,Random 218 mg/dL (74-106); Potassium 3.7 meq/L (3.5-5.1); Sodium 138 meq/L (136-145)
[2018-10-15 06:47] LABS: Alkaline Phosphatase 69 U/L (45-117); Total Protein 6.1 g/dL (6.4-8.2)
[2018-10-15] MEDS: MethylPREDNISolone Sod Succinate Inj 125 MG/2 ML Vial IV.PUSH SCH ×2 (09:31→20:26)
[2018-10-15] MEDS: Furosemide 40 MG Tablet PO SCH (09:32)
[2018-10-15] MEDS: levETIRAcetam 500 MG Tablet PO SCH ×2 (09:32→20:26)
--- NOTE | 2018-10-15 11:37 | P.PNFP ---
Subjective Interval history: She is seen and examined bedside this morning. Patient doing well. She continues to state that her breathing is improved. Denies any chest pain. Denies any dizziness with mobilization with PT. No fever/chills. <Anika EscalanteCindy - 10/15/18 11:36> Results - Labs Result diagrams: 10/11/18 05:55 10/15/18 04:35 <Inocente Gilbert - 10/15/18 20:29> Abnormal lab results 10/15/18 Range/Units 04:35 Chloride 95 L (98-107) meq/L Carbon Dioxide 38.5 H (21.0-32.0) meq/L BUN 19 H (7-18) mg/dL Random Glucose 218 H (74-106) mg/dL AST 14 L (15-37) U/L Total Protein 6.1 L (6.4-8.2) g/dL Albumin 2.7 L (3.4-5.0) g/dL BMP 10/15/18 04:35 Sodium 138 Potassium 3.7 Chloride 95 L Carbon Dioxide 38.5 H BUN 19 H Creatinine 0.66 Calcium 8.8 Liver Function 10/15/18 Range/Units 04:35 Total Bilirubin 0.4 (0.2-1.0) mg/dL AST 14 L (15-37) U/L ALT 40 (10-53) U/L Alkaline Phosphatase 69 (45-117) U/L Albumin 2.7 L (3.4-5.0) g/dL <Inocente Gilbert - 10/15/18 20:29> Abnormal lab results 10/15/18 Range/Units 04:35 Chloride 95 L (98-107) meq/L Carbon Dioxide 38.5 H (21.0-32.0) meq/L BUN 19 H (7-18) mg/dL Random Glucose 218 H (74-106) mg/dL AST 14 L (15-37) U/L Total Protein 6.1 L (6.4-8.2) g/dL Albumin 2.7 L (3.4-5.0) g/dL BMP 10/15/18 04:35 Sodium 138 Potassium 3.7 Chloride 95 L Carbon Dioxide 38.5 H BUN 19 H Creatinine 0.66 Calcium 8.8 Liver Function 10/15/18 Range/Units 04:35 Total Bilirubin 0.4 (0.2-1.0) mg/dL AST 14 L (15-37) U/L ALT 40 (10-53) U/L Alkaline Phosphatase 69 (45-117) U/L Albumin 2.7 L (3.4-5.0) g/dL <Anika Cindy Escalante - 10/15/18 11:36> Physical Exam Vital signs: Vital Signs 10/14/18 21:36 10/14/18 23:35 10/15/18 00:00 Temperature 98.0 F Pulse Rate 67 Respiratory Rate 16 16 Blood Pressure 126/62 Pulse Oximetry 94 L 93 L 10/15/18 03:50 10/15/18 04:00 10/15/18 07:00 Temperature 97.7 F Pulse Rate 66 61 Respiratory Rate 16 16 Blood Pressure 132/59 L Pulse Oximetry 95 10/15/18 09:23 10/15/18 09:39 10/15/18 11:00 Temperature 97.5 F L Pulse Rate 87 69 Respiratory Rate 18 Blood Pressure 112/57 L Pulse Oximetry 94 L 94 L 10/15/18 11:11 10/15/18 11:21 10/15/18 15:00 Temperature 97.5 F L Pulse Rate 76 74 Respiratory Rate 18 Blood Pressure 122/62 Pulse Oximetry 94 L 95 10/15/18 15:17 10/15/18 20:00 Temperature 98.3 F 97.9 F Pulse Rate 76 77 Respiratory Rate 18 16 Blood Pressure 136/73 119/56 L Pulse Oximetry 94 L 95 Intake & Output 10/15/18 10/15/18 10/16/18 06:59 18:59 06:59 Intake Total 480 / 480 1680 / 1680 Output Total 100 / 100 3202 / 3202 Balance 380 / 380 -1522 / -1522 Weight 121 kg Intake: Oral 480 / 480 1680 / 1680 Output: Urine 100 / 100 802 / 802 Urine Amount (Catheter) 2400 / 2400 Female External 2400 / 2400 Other: # Voids 2 # Incontinent Voids 1 Date of Last Bowel Movement 10/14/18 10/15/18 <Inocente Gilbert - 10/15/18 20:29> Vital Signs 10/14/18 12:00 10/14/18 16:00 10/14/18 20:00 Temperature 97.5 F L 97.9 F 97.6 F Pulse Rate 84 84 71 Respiratory Rate 20 18 18 Blood Pressure 105/63 124/72 117/56 L Pulse Oximetry 93 L 93 L 95 10/14/18 21:36 10/14/18 23:35 10/15/18 00:00 Temperature 98.0 F Pulse Rate 67 Respiratory Rate 16 16 Blood Pressure 126/62 Pulse Oximetry 94 L 93 L 10/15/18 03:50 10/15/18 04:00 10/15/18 07:00 Temperature 97.7 F Pulse Rate 66 61 Respiratory Rate 16 16 Blood Pressure 132/59 L Pulse Oximetry 95 10/15/18 09:23 10/15/18 09:39 10/15/18 11:11 Temperature 97.5 F L Pulse Rate 87 Respiratory Rate 18 Blood Pressure 112/57 L Pulse Oximetry 94 L 94 L 94 L 10/15/18 11:21 Temperature 97.5 F L Pulse Rate 76 Respiratory Rate 18 Blood Pressure 122/62 Pulse Oximetry 95 Intake & Output 10/14/18 10/15/18 10/15/18 18:59 06:59 18:59 Intake Total 600 / 600 480 / 480 Output Total 200 / 200 100 / 100 Balance 400 / 400 380 / 380 -1 / -1 Weight 121 kg Intake: Oral 600 / 600 480 / 480 Output: Urine 200 / 200 100 / 100 Other: # Voids 2 2 # Incontinent Voids 1 Date of Last Bowel Movement 10/13/18 10/14/18 10/15/18 <Cindy Ambrose - 10/15/18 11:36> Narrative: GENERAL: Well-developed well-nourished. Obese. In no acute distress. Breathing comfortably on 5 L O2 nasal cannula. NECK: No carotid bruits. No JVD. Pain on palpation of neck or axillary area bilaterally. CARDIOVASCULAR: Regular rate and rhythm. No murmur appreciated. Chest wall: Status post right mastectomy. RESPIRATORY: No accessory muscle use. Clear to auscultation. Breath sounds equal bilaterally. MUSCULOSKELETAL: No clubbing or cyanosis. Negative pitting edema. Much improved from prior. NEUROLOGICAL: Awake and alert. Normal speech. <Cindy Ambrose - 10/15/18 11:36> - Urinary Catheter Management Female External Cath placed during this visit: no <Inocente Gilbert - 10/15/18 20:29> no <Cindy Ambrose - 10/15/18 11:36> Assessment and Plan - Assessment (1) Shortness of breath Code(s): R06.02 - Shortness of breath Status: Resolved (2) Pneumonitis Code(s): J18.9 - Pneumonia, unspecified organism Status: Acute (3) Metastatic breast cancer Code(s): C50.919 - Malignant neoplasm of unspecified site of unspecified female breast Status: Chronic (4) Essential hypertension Code(s): I10 - Essential (primary) hypertension Status: Chronic <Inocente Gilbert 10/15/18 20:29> (1) Shortness of breath Code(s): R06.02 - Shortness of breath Status: Resolved (2) Pneumonitis Code(s): J18.9 - Pneumonia, unspecified organism Status: Acute (3) Metastatic breast cancer Code(s): C50.919 - Malignant neoplasm of unspecified site of unspecified female breast Status: Chronic (4) Essential hypertension Code(s): I10 - Essential (primary) hypertension Status: Chronic <Cindy Ambrose - 10/15/18 11:33> - Assessment and Plan 57 yo with metastatic breast cancer admitted with: Shortness of breath - resolved CT finding suggestive of pneumonitis (ground glass opacities) consistent with chemotherapy side effect Clinically peripheral edema has improved after addition of Lasix Echo with grossly normal EF, valuated by cardiology consult; volume retention and dyspnea may be due to high volumes today. Recommending diuretic therapy for net 2-3 L negative daily. Continue metoprolol. Cardiology consult signing off. -1L fluid balance with improved peripheral edema * Continue O2 via NC, cont to encourage nursing to titrate and wean O2 * Consulted oncology, appreciate assistance * Treat pneumonitis as below * Consulted cardiology, appreciate recs * Continue diuresis for now * Continue beta-cecilia * May have component of EVA and/or obesity hypoventilation syndrome * Monitor I/O; do not want to diurese too aggressively as she does not seem to have CHF or pulmonary edema that caused the SOB * Continue Lasix to 40 mg p.o. daily Pneumonitis Discussed with oncologist Dr. Vanessa, likely this is side effect of her chemotherapy * Continue Solu-medrol 60 mg IV BID -oncology is weaning steroids beginning today, and will likely continue IV steroids times 3-5 days before discharging with p.o. steroids * Monitor vitals, titrate O2 PRN * Plan to repeat with CT thorax in 3 days to recheck for pulmonary infiltrates * To reassess plan for chemotherapy if patient is allergic to Herceptin Metastatic breast cancer Currently treated with chemotherapy per Dr. 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 I reviewed and agree with the findings presented. I attest that I had a [id number] encounter with the patient on the same day, and personally performed and documented my assessment and findings in the medical record. Feeling better again today, eager to work more with PT. Surprised she is on same amount of O2 as yesterday afternoon when I saw her. no new complaints. edema in lower extremities only trace now. 57 yo with metastatic breast cancer admitted with: Acute hypoxic respiratory failure CT suggestive of chemotherapy induced pneumonitis (see treatment below) likely primary culprit but appeared volume overloaded earlier Cardiology initially consulted but signed off after diuresis. Lasix 40mg PO daily for now, may decrease as clinically indicated Pneumonitis Continue weaning steroids per oncology Planning to re-scan before PO transition Metastatic breast cancer Currently treated with chemotherapy per Dr. 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
--- NOTE | 2018-10-15 11:56 | P.PNONC ---
Subjective Interval history: Patient lying in bed, in no acute distress. She denies any shortness of breath. She is awaiting physical therapy to assist her in getting up to chair. She has difficulty getting herself out of bed without having use of her right arm. She did tolerate sitting at the bedside earlier this a.m. she reports. Objective Vital Signs/Intake & Output: Vital Signs 10/14/18 12:00 10/14/18 16:00 10/14/18 20:00 Temperature 97.5 F L 97.9 F 97.6 F Pulse Rate 84 84 71 Respiratory Rate 20 18 18 Blood Pressure 105/63 124/72 117/56 L Pulse Oximetry 93 L 93 L 95 10/14/18 21:36 10/14/18 23:35 10/15/18 00:00 Temperature 98.0 F Pulse Rate 67 Respiratory Rate 16 16 Blood Pressure 126/62 Pulse Oximetry 94 L 93 L 10/15/18 03:50 10/15/18 04:00 10/15/18 07:00 Temperature 97.7 F Pulse Rate 66 61 Respiratory Rate 16 16 Blood Pressure 132/59 L Pulse Oximetry 95 10/15/18 09:23 10/15/18 09:39 10/15/18 11:00 Temperature 97.5 F L Pulse Rate 87 69 Respiratory Rate 18 Blood Pressure 112/57 L Pulse Oximetry 94 L 94 L 10/15/18 11:11 10/15/18 11:21 Temperature 97.5 F L Pulse Rate 76 Respiratory Rate 18 Blood Pressure 122/62 Pulse Oximetry 94 L 95 Intake & Output 10/14/18 10/15/18 10/15/18 18:59 06:59 18:59 Intake Total 600 / 600 480 / 480 Output Total 200 / 200 100 / 100 Balance 400 / 400 380 / 380 -1 / -1 Weight 121 kg Intake: Oral 600 / 600 480 / 480 Output: Urine 200 / 200 100 / 100 Other: # Voids 2 2 # Incontinent Voids 1 Date of Last Bowel Movement 10/13/18 10/14/18 10/15/18 Result Diagrams: 10/11/18 05:55 10/15/18 04:35 Laboratory Results: Laboratory Results - last 24 hr 10/15/18 04:35 Sodium 138 Potassium 3.7 Chloride 95 L Carbon Dioxide 38.5 H Anion Gap 5 BUN 19 H Creatinine 0.66 Estimated GFR Greater than 89 Random Glucose 218 H Calcium 8.8 Total Bilirubin 0.4 AST 14 L ALT 40 Alkaline Phosphatase 69 Total Protein 6.1 L Albumin 2.7 L Medications: Active Medications Generic Name Dose Route Start Last Admin Trade Name Freq PRN Reason Stop Dose Admin Chlorhexidine Gluconate 3 pack 10/11/18 04:00 10/15/18 04:14 Chlorhexidine 2% Cloth TOPICAL 10/16/18 03:59 Not Given DAILY@0400 [facility] Enoxaparin Sodium 40 mg 10/10/18 21:45 10/14/18 20:45 Lovenox Inj SQ 40 mg Q24H MACARIO Administration Furosemide 40 mg 10/14/18 11:45 10/15/18 09:32 Lasix PO 40 mg DAILY MACARIO Administration Levetiracetam 500 mg 10/11/18 09:00 10/15/18 09:32 Keppra PO 500 mg BID MACARIO Administration Methylprednisolone Sodium Succinate 50 mg 10/14/18 14:11 10/15/18 09:31 Solumedrol Inj IV.PUSH 50 mg Q12HR MACARIO Administration Metoprolol Succinate 25 mg 10/11/18 09:00 10/15/18 09:32 Toprol Xl PO 25 mg DAILY MACARIO Administration Pantoprazole Sodium 40 mg 10/11/18 09:00 10/15/18 09:32 Protonix PO 40 mg BID MACARIO Administration Sodium Chloride 2 ml 10/11/18 09:00 10/15/18 09:32 Ns Flush IV.FLUSH 2 ml BID MACARIO Administration Objective Remarks: GENERAL: Well-nourished, well-developed, obese female patient, no acute distress. SKIN: Warm and dry. HEAD: Normocephalic. EYES: No scleral icterus. No injection or drainage. NECK: Supple, trachea midline. CARDIOVASCULAR: Regular rate and rhythm without murmurs. RESPIRATORY: Breath sounds clear, equal bilaterally. Nonlabored at rest. O2 via nasal cannula 4 L 94%. GASTROINTESTINAL: Abdomen large, soft, non-tender, nondistended. EXTREMITIES: No cyanosis. Trace edema. MUSCULOSKELETAL: Adequate muscle tone. NEUROLOGICAL: No obvious focal deficit. Awake, alert, and oriented x3. PSYCHIATRIC: Appropriate mood and affect; insight and judgment normal. Assessment/Plan - Plan Plan: 1. Shortness of breath, possibly pneumonitis related to Herceptin/pertuzumab. She continues to improve. Currently on Solu-Medrol 50 mg twice daily, this was decreased today, as she was on Solu-Medrol 60 mg twice daily. 2. Encourage out of bed to chair. Patient will need assistance as she has no use of her right arm. Continue to work with physical therapy. 3. Continue supportive care.
[2018-10-15] MEDS: Enoxaparin Inj 40 MG/0.4 ML Syringe SQ SCH (20:50)
--- NOTE | 2018-10-16 07:54 | P.PNONC ---
Subjective Interval history: breathing better. tearful and feeling defeated due to inability to get up without fear of falling Objective Vital Signs/Intake & Output: Vital Signs 10/15/18 09:23 10/15/18 09:39 10/15/18 11:00 Temperature 97.5 F L Pulse Rate 87 69 Respiratory Rate 18 Blood Pressure 112/57 L Pulse Oximetry 94 L 94 L 10/15/18 11:11 10/15/18 11:21 10/15/18 15:00 Temperature 97.5 F L Pulse Rate 76 74 Respiratory Rate 18 Blood Pressure 122/62 Pulse Oximetry 94 L 95 10/15/18 15:17 10/15/18 20:00 10/15/18 23:32 Temperature 98.3 F 97.9 F 97.5 F L Pulse Rate 76 86 76 Respiratory Rate 18 16 16 Blood Pressure 136/73 119/56 L 139/71 Pulse Oximetry 94 L 95 96 10/16/18 00:00 10/16/18 00:04 10/16/18 03:26 Temperature 97.7 F Pulse Rate 65 76 Respiratory Rate 16 16 Blood Pressure 125/62 Pulse Oximetry 95 10/16/18 04:00 10/16/18 04:07 10/16/18 04:49 Temperature Pulse Rate 64 Respiratory Rate 16 Blood Pressure Pulse Oximetry 96 Intake & Output 10/15/18 10/16/18 10/16/18 18:59 06:59 18:59 Intake Total 1680 / 1680 Output Total 3202 / 3202 100 / 100 Balance -1522 / -1522 -100 / -100 Weight 121.1 kg Intake: Oral 1680 / 1680 Output: Urine 802 / 802 100 / 100 Urine Amount (Catheter) 2400 / 2400 Female External 2400 / 2400 Other: # Voids 1 Date of Last Bowel Movement 10/15/18 10/15/18 Result Diagrams: 10/11/18 05:55 10/15/18 04:35 Medications: Active Medications Generic Name Dose Route Start Last Admin Trade Name Freq PRN Reason Stop Dose Admin Enoxaparin Sodium 40 mg 10/10/18 21:45 10/15/18 20:50 Lovenox Inj SQ 40 mg Q24H MACARIO Administration Furosemide 40 mg 10/14/18 11:45 10/15/18 09:32 Lasix PO 40 mg DAILY [facility]IO Administration Levetiracetam 500 mg 10/11/18 09:00 10/15/18 20:26 Keppra PO 500 mg BID MACARIO Administration Methylprednisolone Sodium Succinate 50 mg 10/14/18 14:11 10/15/18 20:26 Solumedrol Inj IV.PUSH 50 mg Q12HR MACARIO Administration Metoprolol Succinate 25 mg 10/11/18 09:00 10/15/18 09:32 Toprol Xl PO 25 mg DAILY [facility] Administration Pantoprazole Sodium 40 mg 10/11/18 09:00 10/15/18 20:26 Protonix PO 40 mg BID MACARIO Administration Sodium Chloride 2 ml 10/11/18 09:00 10/15/18 20:27 Ns Flush IV.FLUSH 2 ml BID MACARIO Administration Objective Remarks: GENERAL: Breathing easier, bedridden SKIN: Warm and dry. HEAD: Normocephalic. EYES: No scleral icterus. No injection or drainage. NECK: Supple, trachea midline. No JVD or lymphadenopathy. LYMPHATIC: No adenopathy. CARDIOVASCULAR: Regular rate and rhythm without murmurs. RESPIRATORY: Breath sounds equal bilaterally. No accessory muscle use. GASTROINTESTINAL: Abdomen soft, non-tender, nondistended. Obese EXTREMITIES: Trace edema MUSCULOSKELETAL: Adequate muscle tone. NEUROLOGICAL: Right arm weakness unchanged. Generalized weakness with deconditioning PSYCHIATRIC: Appropriate mood and affect; insight and judgment normal. Assessment/Plan - Plan Plan: 1. Her breathing continues to improve slowly. I have ordered a CT of the thorax without contrast for tomorrow. I would like to begin the process of weaning the oxygen. In several days will switch to p.o. prednisone from IV Solu -Medrol. 2: She is bedridden, obese, and profoundly weakened by her recent experience. She has no use of the right arm. She has an enormous risk of fall. Her weight makes her care complicated. I believe that she should go to a rehab center on discharge and have requested consultation with case management to assist. I have spoken to nursing staff about her problems. It is very difficult to get her from bed to chair because of her weight and at the same time it is necessary.
--- NOTE | 2018-10-16 09:35 | P.PNFP ---
Subjective Interval history: Patient seen and examined bedside this morning. Patient is continuing to work with physical therapy and she was able to get up into the chair yesterday evening. Is very difficult for her to get out of the chair and back to bed yesterday evening. She is starting to consider rehab before going home. Denies any chest pain/shortness of breath/dizziness. No fever/chills <Cindy Ambrose - 10/16/18 09:35> Results - Labs Result diagrams: 10/11/18 05:55 10/15/18 04:35 <Inocente Gilbert - 10/16/18 10:30> Physical Exam Vital signs: Vital Signs 10/15/18 11:00 10/15/18 11:11 10/15/18 11:21 Temperature 97.5 F L Pulse Rate 69 76 Respiratory Rate 18 Blood Pressure 122/62 Pulse Oximetry 94 L 95 10/15/18 15:00 10/15/18 15:17 10/15/18 20:00 Temperature 98.3 F 97.9 F Pulse Rate 74 76 86 Respiratory Rate 18 16 Blood Pressure 136/73 119/56 L Pulse Oximetry 94 L 95 10/15/18 23:32 10/16/18 00:00 10/16/18 00:04 Temperature 97.5 F L Pulse Rate 76 65 Respiratory Rate 16 16 Blood Pressure 139/71 Pulse Oximetry 96 10/16/18 03:26 10/16/18 04:00 10/16/18 04:07 Temperature 97.7 F Pulse Rate 76 Respiratory Rate 16 16 Blood Pressure 125/62 Pulse Oximetry 95 96 10/16/18 04:49 Temperature Pulse Rate 64 Respiratory Rate Blood Pressure Pulse Oximetry Intake & Output 10/15/18 10/16/18 10/16/18 18:59 06:59 18:59 Intake Total 1680 / 1680 Output Total 3202 / 3202 100 / 100 Balance -1522 / -1522 -100 / -100 Weight 121.1 kg Intake: Oral 1680 / 1680 Output: Urine 802 / 802 100 / 100 Urine Amount (Catheter) 2400 / 2400 Female External 2400 / 2400 Other: # Voids 1 Date of Last Bowel Movement 10/15/18 10/15/18 <Inocente Gilbert - 10/16/18 10:30> Vital Signs 10/15/18 09:39 10/15/18 11:00 10/15/18 11:11 Temperature Pulse Rate 69 Respiratory Rate Blood Pressure Pulse Oximetry 94 L 94 L 10/15/18 11:21 10/15/18 15:00 10/15/18 15:17 Temperature 97.5 F L 98.3 F Pulse Rate 76 74 76 Respiratory Rate 18 18 Blood Pressure 122/62 136/73 Pulse Oximetry 95 94 L 10/15/18 20:00 10/15/18 23:32 10/16/18 00:00 Temperature 97.9 F 97.5 F L Pulse Rate 86 76 Respiratory Rate 16 16 16 Blood Pressure 119/56 L 139/71 Pulse Oximetry 95 96 10/16/18 00:04 10/16/18 03:26 10/16/18 04:00 Temperature 97.7 F Pulse Rate 65 76 Respiratory Rate 16 16 Blood Pressure 125/62 Pulse Oximetry 95 10/16/18 04:07 10/16/18 04:49 Temperature Pulse Rate 64 Respiratory Rate Blood Pressure Pulse Oximetry 96 Intake & Output 10/15/18 10/16/18 10/16/18 18:59 06:59 18:59 Intake Total 1680 / 1680 Output Total 3202 / 3202 100 / 100 Balance -1522 / -1522 -100 / -100 Weight 121.1 kg Intake: Oral 1680 / 1680 Output: Urine 802 / 802 100 / 100 Urine Amount (Catheter) 2400 / 2400 Female External 2400 / 2400 Other: # Voids 1 Date of Last Bowel Movement 10/15/18 10/15/18 <Cindy Ambrose - 10/16/18 09:35> Narrative: GENERAL: Well-developed well-nourished. Obese. In no acute distress. Breathing comfortably on 4 L O2 nasal cannula. NECK: No carotid bruits. No JVD. Pain on palpation of neck or axillary area bilaterally. CARDIOVASCULAR: Regular rate and rhythm. No murmur appreciated. Chest wall: Status post right mastectomy. RESPIRATORY: No accessory muscle use. Clear to auscultation. Breath sounds equal bilaterally. MUSCULOSKELETAL: No clubbing or cyanosis. Negative pitting edema. Much improved from prior. NEUROLOGICAL: Awake and alert. Normal speech. <Cindy Ambrose - 10/16/18 09:35> - Urinary Catheter Management Female External Cath placed during this visit: no <Inocente Gilbert - 10/16/18 10:30> no <Cindy Ambrose - 10/16/18 09:35> Assessment and Plan - Assessment (1) Shortness of breath Code(s): R06.02 - Shortness of breath Status: Resolved (2) Pneumonitis Code(s): J18.9 - Pneumonia, unspecified organism Status: Acute (3) Metastatic breast cancer Code(s): C50.919 - Malignant neoplasm of unspecified site of unspecified female breast Status: Chronic (4) Essential hypertension Code(s): I10 - Essential (primary) hypertension Status: Chronic <Inocente Gilbert - 10/16/18 10:30> (1) Shortness of breath Code(s): R06.02 - Shortness of breath Status: Resolved (2) Pneumonitis Code(s): J18.9 - Pneumonia, unspecified organism Status: Acute (3) Metastatic breast cancer Code(s): C50.919 - Malignant neoplasm of unspecified site of unspecified female breast Status: Chronic (4) Essential hypertension Code(s): I10 - Essential (primary) hypertension Status: Chronic <Cindy Ambrose - 10/16/18 09:30> - Assessment and Plan 57 yo with metastatic breast cancer admitted with: Shortness of breath - resolved CT on 10/10 ; finding suggestive of pneumonitis (ground glass opacities) consistent with chemotherapy side effect Clinically peripheral edema has improved after addition of Lasix Echo with grossly normal EF, evaluated by cardiology consult; volume retention and dyspnea may be due to high volumes today. Recommending diuretic therapy for net 2-3 L negative daily. Continue metoprolol. Cardiology signed off. -1L fluid balance with improved peripheral edema * Continue O2 via NC, cont to encourage nursing to titrate and wean O2 * Consulted oncology, appreciate assistance * Treat pneumonitis as below * Consulted cardiology, appreciate recs * Continue diuresis for now * Continue beta-cecilia * May have component of EVA and/or obesity hypoventilation syndrome * Monitor I/O; do not want to diurese too aggressively as she does not seem to have CHF or pulmonary edema that caused the SOB * Continue Lasix to 40 mg p.o. daily Pneumonitis Discussed with oncologist Dr. Vanessa, likely this is side effect of her chemotherapy * Continue Solu-medrol 50 mg IV BID -oncology is weaning steroids beginning today, and will likely continue IV steroids times 3-5 days before discharging with p.o. steroids, possibly can get IV steroid in rehab? * Monitor vitals, titrate O2 PRN * Plan to repeat with CT thorax tomorrow * To reassess plan for chemotherapy if patient is allergic to Herceptin Metastatic breast cancer Currently treated with chemotherapy per Dr. 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 I reviewed and agree with the findings presented. I attest that I had a [id number] encounter with the patient on the same day, and personally performed and documented my assessment and findings in the medical record. Working to do as much as she can with PT. upset with the weight she gained over the past few years and she is worried she will fall. spent most of today's encounter reassuring her and encouraging her to work through her fears of falling when she has the help to make sure she is safe. Working to get to inpatient rehab, plan for CT chest tomorrow per oncology and weaning steroids per them. Will decrease lasix to 20mg daily as it does not seem to be helping her O2 sats improve. Continue to wean as tolerated. <Inocente Gilbert - 10/16/18 10:30>
[2018-10-16] MEDS: levETIRAcetam 500 MG Tablet PO SCH ×2 (10:46→20:34)
[2018-10-16] MEDS: Furosemide 40 MG Tablet PO SCH (10:46)
[2018-10-16] MEDS: MethylPREDNISolone Sod Succinate Inj 125 MG/2 ML Vial IV.PUSH SCH ×2 (10:46→20:35)
[2018-10-16] MEDS: Enoxaparin Inj 40 MG/0.4 ML Syringe SQ SCH (20:46)
[2018-10-17 05:03] LABS: Baso % (Auto) 0.1 % (0.0-2.0); Hematocrit 35.7 % (35.0-46.0); Hemoglobin 12.2 gm/dL (11.6-15.3); Lymph # (Auto) 1.1 th/mm3 (1.0-4.8); Lymph % (Auto) 13.6 % (9.0-44.0); Mean Corpuscular HGB Conc 34.3 % (32.0-36.0); Mean Corpuscular Hemoglobin 33.3 pg (27.0-34.0); Mean Corpuscular Volume 97.1 fL (80.0-100.0); Mean Platelet Volume 8.5 fL (7.0-11.0); Mono # (Auto) 0.3 th/mm3 (0.0-0.9); Mono % (Auto) 3.4 % (0.0-8.0); Neut # (Auto) 6.6 th/mm3 (1.8-7.7); Neut % (Auto) 82.9 % (16.0-70.0); Platelet Count 206 th/mm3 (150-450); Red Blood Count 3.67 mil/mm3 (4.00-5.30); Red Cell Distribution Width 17.1 % (11.6-17.2); White Blood Count 7.9 th/mm3 (4.0-11.0)
[2018-10-17 05:16] LABS: Alanine Aminotransferase 41 U/L (10-53); Albumin 2.8 g/dL (3.4-5.0); Anion Gap 6 meq/L (5-15); Aspartate Aminotransferase 14 U/L (15-37); Blood Urea Nitrogen 19 mg/dL (7-18); Calcium 8.8 mg/dL (8.5-10.1); Carbon Dioxide 38.3 meq/L (21.0-32.0); Chloride 91 meq/L (98-107); Glomerular Filtration Rate 76 mL/min (>89); Glucose,Random 287 mg/dL (74-106); Potassium 3.4 meq/L (3.5-5.1); Sodium 135 meq/L (136-145)
[2018-10-17 05:18] LABS: Alkaline Phosphatase 71 U/L (45-117); Total Protein 6.3 g/dL (6.4-8.2)
[2018-10-17] MEDS: MethylPREDNISolone Sod Succinate Inj 125 MG/2 ML Vial IV.PUSH SCH ×2 (10:30→20:48)
[2018-10-17] MEDS: levETIRAcetam 500 MG Tablet PO SCH ×2 (10:30→20:48)
--- NOTE | 2018-10-17 10:40 | P.PNFP ---
Subjective Interval history: Patient seen and examined bedside this morning. No acute changes overnight. Patient continues to feel like her breathing is back to normal. However, she is still on nasal cannula oxygen. She is continuing to work with physical therapy and is still unable to get up out of bed on her own. No fever/chills. No chest pain/shortness of breath/dizziness. <Anika EscalanteCindy - 10/17/18 10:40> Results - Labs Result diagrams: 10/17/18 04:05 10/17/18 04:05 <Inocente Gilbert - 10/17/18 11:06> Abnormal lab results 10/17/18 10/17/18 Range/Units 04:05 04:05 RBC 3.67 L (4.00-5.30) mil/mm3 Neut % (Auto) 82.9 H (16.0-70.0) % Sodium 135 L (136-145) meq/L Potassium 3.4 L (3.5-5.1) meq/L Chloride 91 L (98-107) meq/L Carbon Dioxide 38.3 H (21.0-32.0) meq/L BUN 19 H (7-18) mg/dL Estimated GFR 76 L (>89) mL/min Random Glucose 287 H (74-106) mg/dL AST 14 L (15-37) U/L Total Protein 6.3 L (6.4-8.2) g/dL Albumin 2.8 L (3.4-5.0) g/dL Short CBC 10/17/18 Range/Units 04:05 WBC 7.9 (4.0-11.0) th/mm3 Hgb 12.2 (11.6-15.3) gm/dL Hct 35.7 (35.0-46.0) % Plt Count 206 (150-450) th/mm3 BMP 10/17/18 04:05 Sodium 135 L Potassium 3.4 L Chloride 91 L Carbon Dioxide 38.3 H BUN 19 H Creatinine 0.78 Calcium 8.8 Liver Function 10/17/18 Range/Units 04:05 Total Bilirubin 0.4 (0.2-1.0) mg/dL AST 14 L (15-37) U/L ALT 41 (10-53) U/L Alkaline Phosphatase 71 (45-117) U/L Albumin 2.8 L (3.4-5.0) g/dL <Inocente Gilbert - 10/17/18 11:06> Abnormal lab results 10/17/18 10/17/18 Range/Units 04:05 04:05 RBC 3.67 L (4.00-5.30) mil/mm3 Neut % (Auto) 82.9 H (16.0-70.0) % Sodium 135 L (136-145) meq/L Potassium 3.4 L (3.5-5.1) meq/L Chloride 91 L (98-107) meq/L Carbon Dioxide 38.3 H (21.0-32.0) meq/L BUN 19 H (7-18) mg/dL Estimated GFR 76 L (>89) mL/min Random Glucose 287 H (74-106) mg/dL AST 14 L (15-37) U/L Total Protein 6.3 L (6.4-8.2) g/dL Albumin 2.8 L (3.4-5.0) g/dL Short CBC 10/17/18 Range/Units 04:05 WBC 7.9 (4.0-11.0) th/mm3 Hgb 12.2 (11.6-15.3) gm/dL Hct 35.7 (35.0-46.0) % Plt Count 206 (150-450) th/mm3 BMP 10/17/18 04:05 Sodium 135 L Potassium 3.4 L Chloride 91 L Carbon Dioxide 38.3 H BUN 19 H Creatinine 0.78 Calcium 8.8 Liver Function 10/17/18 Range/Units 04:05 Total Bilirubin 0.4 (0.2-1.0) mg/dL AST 14 L (15-37) U/L ALT 41 (10-53) U/L Alkaline Phosphatase 71 (45-117) U/L Albumin 2.8 L (3.4-5.0) g/dL <Cindy Ambrose - 10/17/18 10:40> Physical Exam Vital signs: Vital Signs 10/16/18 12:00 10/16/18 16:00 10/16/18 20:00 Temperature 97.9 F 97.9 F 98.3 F Pulse Rate 74 73 72 Respiratory Rate 20 16 Blood Pressure 123/63 139/48 L 122/71 Pulse Oximetry 93 L 91 L 93 L 01/09/19 21:33 10/17/18 00:00 10/17/18 04:00 Temperature 97.6 F 98.4 F Pulse Rate 60 62 Respiratory Rate 16 18 Blood Pressure 139/74 131/64 Pulse Oximetry 94 L 93 L 93 L Intake & Output 10/16/18 10/17/18 10/17/18 18:59 06:59 18:59 Intake Total 600 / 600 Output Total 1800 / 1800 200 / 200 Balance -1200 / -1200 -200 / -200 Weight 121.3 kg Intake: Oral 600 / 600 Output: Urine 200 / 200 Urine Amount (Catheter) 1800 / 1800 Female External 1800 / 1800 Other: # Voids 3 Date of Last Bowel Movement 10/15/18 10/17/18 # Bowel Movements 1 <Inocente Gilbert - 10/17/18 11:06> Vital Signs 10/16/18 12:00 10/16/18 16:00 10/16/18 20:00 Temperature 97.9 F 97.9 F 98.3 F Pulse Rate 74 73 72 Respiratory Rate 20 16 Blood Pressure 123/63 139/48 L 122/71 Pulse Oximetry 93 L 91 L 93 L 10/16/18 21:33 10/17/18 00:00 10/17/18 04:00 Temperature 97.6 F 98.4 F Pulse Rate 60 62 Respiratory Rate 16 18 Blood Pressure 139/74 131/64 Pulse Oximetry 94 L 93 L 93 L Intake & Output 10/16/18 10/17/18 10/17/18 18:59 06:59 18:59 Intake Total 600 / 600 Output Total 1800 / 1800 200 / 200 Balance -1200 / -1200 -200 / -200 Weight 121.3 kg Intake: Oral 600 / 600 Output: Urine 200 / 200 Urine Amount (Catheter) 1800 / 1800 Female External 1800 / 1800 Other: # Voids 3 Date of Last Bowel Movement 10/15/18 10/17/18 # Bowel Movements 1 <Cindy Ambrose - 10/17/18 10:40> Narrative: GENERAL: Well-developed well-nourished. Obese. In no acute distress. Breathing comfortably on 4 L O2 nasal cannula. NECK: No carotid bruits. No JVD. Pain on palpation of neck or axillary area bilaterally. CARDIOVASCULAR: Regular rate and rhythm. No murmur appreciated. Chest wall: Status post right mastectomy. RESPIRATORY: No accessory muscle use. Clear to auscultation. Breath sounds equal bilaterally. MUSCULOSKELETAL: No clubbing or cyanosis. Negative pitting edema. Much improved from prior. NEUROLOGICAL: Awake and alert. Normal speech. <Cindy Ambrose - 10/17/18 10:40> - Urinary Catheter Management Female External Cath placed during this visit: no <Inocente Gilbert - 10/17/18 11:06> no <Cindy Ambrose - 10/17/18 10:40> Assessment and Plan - Assessment (1) Shortness of breath Code(s): R06.02 - Shortness of breath Status: Resolved (2) Pneumonitis Code(s): J18.9 - Pneumonia, unspecified organism Status: Acute (3) Metastatic breast cancer Code(s): C50.919 - Malignant neoplasm of unspecified site of unspecified female breast Status: Chronic (4) Essential hypertension Code(s): I10 - Essential (primary) hypertension Status: Chronic <Inocente Gilbert 10/17/18 11:06> (1) Shortness of breath Code(s): R06.02 - Shortness of breath Status: Resolved (2) Pneumonitis Code(s): J18.9 - Pneumonia, unspecified organism Status: Acute (3) Metastatic breast cancer Code(s): C50.919 - Malignant neoplasm of unspecified site of unspecified female breast Status: Chronic (4) Essential hypertension Code(s): I10 - Essential (primary) hypertension Status: Chronic <Cindy Ambrose - 10/17/18 10:35> - Assessment and Plan 57 yo with metastatic breast cancer admitted with: Shortness of breath - resolved CT on 10/10 ; finding suggestive of pneumonitis (ground glass opacities) consistent with chemotherapy side effect Clinically peripheral edema has improved after addition of Lasix Echo with grossly normal EF, evaluated by cardiology consult; volume retention and dyspnea may be due to high volumes today. Recommending diuretic therapy for net 2-3 L negative daily. Continue metoprolol. Cardiology signed off. -1L fluid balance with improved peripheral edema * Continue O2 via NC, cont to encourage nursing to titrate and wean O2, may need to d/c with O2 tank * Consulted oncology, appreciate assistance * Treat pneumonitis as below * Consulted cardiology, appreciate recs * Continue diuresis for now * Continue beta-cecilia * May have component of EVA and/or obesity hypoventilation syndrome * Monitor I/O; do not want to diurese too aggressively as she does not seem to have CHF or pulmonary edema that caused the SOB * Continue Lasix to 40 mg p.o. daily Pneumonitis Discussed with oncologist Dr. Vanessa, likely this is side effect of her chemotherapy * Continue Solu-medrol 50 mg IV BID -oncology is weaning steroids beginning today, and will likely continue IV steroids times 3-5 days before discharging with p.o. steroids, may need to be off IV steroids for rehab? * Monitor vitals, titrate O2 PRN * Plan to repeat with CT thorax tomorrow * To reassess plan for chemotherapy if patient is allergic to Herceptin Metastatic breast cancer Currently treated with chemotherapy per Dr. 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 I reviewed and agree with the findings presented. I attest that I had a [id number] encounter with the patient on the same day, and personally performed and documented my assessment and findings in the medical record. Still same o2 requirements, but she feels great from resp standpoint. working with PT and was able to transfer and do some in chair exercises. some improvement in anxiety surrounding this. Repeat CT scan today, steroids per oncology. curious to see if she can continue same chemo or needs to change Will stop lasix as normal EF and continued diuresis is not making respiratory improvements When changed to PO steroids may be able to go to inpatient rehab v SNF with PT. <Inocente Gilbert - 10/17/18 11:06>
--- NOTE | 2018-10-17 14:13 | P.PNONC ---
Subjective Interval history: Patient lying in bed, reports she has been doing leg exercises while sitting on the side of the bed. She is awaiting chest CT, requests something for anxiety prior to going for this. She reports her breathing feels "back to normal" she is currently on 3 L O2 via nasal cannula. Discussed changing her IV Solu-Medrol to prednisone 40 mg twice daily after we review her CT chest. She is agreeable to this. Objective Vital Signs/Intake & Output: Vital Signs 10/16/18 16:00 10/16/18 20:00 10/16/18 21:33 Temperature 97.9 F 98.3 F Pulse Rate 73 72 Respiratory Rate 16 Blood Pressure 139/48 L 122/71 Pulse Oximetry 91 L 93 L 94 L 10/17/18 00:00 10/17/18 04:00 10/17/18 08:00 Temperature 97.6 F 98.4 F Pulse Rate 60 62 66 Respiratory Rate 16 18 Blood Pressure 139/74 131/64 Pulse Oximetry 93 L 93 L 10/17/18 09:50 10/17/18 11:10 Temperature 98.2 F Pulse Rate 77 Respiratory Rate 18 Blood Pressure 111/64 Pulse Oximetry 97 93 L Intake & Output 10/16/18 10/17/18 10/17/18 18:59 06:59 18:59 Intake Total 600 / 600 Output Total 1800 / 1800 200 / 200 Balance -1200 / -1200 -200 / -200 Weight 121.3 kg Intake: Oral 600 / 600 Output: Urine 200 / 200 Urine Amount (Catheter) 1800 / 1800 Female External 1800 / 1800 Other: # Voids 3 Date of Last Bowel Movement 10/15/18 10/17/18 10/17/18 # Bowel Movements 1 Result Diagrams: 10/17/18 04:05 10/17/18 04:05 Laboratory Results: Laboratory Results - last 24 hr 10/17/18 10/17/18 04:05 04:05 WBC 7.9 RBC 3.67 L Hgb 12.2 Hct 35.7 MCV 97.1 MCH 33.3 MCHC 34.3 RDW 17.1 Plt Count 206 MPV 8.5 Neut % (Auto) 82.9 H Lymph % (Auto) 13.6 [place] % (Auto) 3.4 Eos % (Auto) 0.0 Baso % (Auto) 0.1 Neut # (Auto) 6.6 Lymph # (Auto) 1.1 [place] # (Auto) 0.3 Eos # (Auto) 0.0 Baso # (Auto) 0.0 WBC Differential . Differential Comment Auto diff final Sodium 135 L Potassium 3.4 L Chloride 91 L Carbon Dioxide 38.3 H Anion Gap 6 BUN 19 H Creatinine 0.78 Estimated GFR 76 L Random Glucose 287 H Calcium 8.8 Total Bilirubin 0.4 AST 14 L ALT 41 Alkaline Phosphatase 71 Total Protein 6.3 L Albumin 2.8 L Medications: Active Medications Generic Name Dose Route Start Last Admin Trade Name Freq PRN Reason Stop Dose Admin Enoxaparin Sodium 40 mg 10/10/18 21:45 10/16/18 20:46 Lovenox Inj SQ 40 mg Q24H MACARIO Administration Levetiracetam 500 mg 10/11/18 09:00 10/17/18 10:30 Keppra PO 500 mg BID MACARIO Administration Methylprednisolone Sodium Succinate 50 mg 10/14/18 14:11 10/17/18 10:30 Solumedrol Inj IV.PUSH 50 mg Q12HR MACARIO Administration Metoprolol Succinate 25 mg 10/11/18 09:00 10/17/18 10:29 Toprol Xl PO 25 mg DAILY MACARIO Administration Pantoprazole Sodium 40 mg 10/11/18 09:00 10/17/18 10:30 Protonix PO 40 mg BID MACARIO Administration Sodium Chloride 2 ml 10/11/18 09:00 10/17/18 10:33 Ns Flush IV.FLUSH 2 ml BID MACARIO Administration Objective Remarks: GENERAL: Well-nourished, well-developed, obese female patient, no acute distress. SKIN: Warm and dry. HEAD: Normocephalic. EYES: No scleral icterus. No injection or drainage. NECK: Supple, trachea midline. CARDIOVASCULAR: Regular rate and rhythm without murmurs. RESPIRATORY: Breath sounds clear, equal bilaterally. Nonlabored at rest. O2 via nasal cannula 3L. GASTROINTESTINAL: Abdomen large, soft, non-tender, nondistended. EXTREMITIES: No cyanosis or edema. MUSCULOSKELETAL: Adequate muscle tone. Right arm chronically flaccid. NEUROLOGICAL: No obvious focal deficit. Awake, alert, and oriented x3. PSYCHIATRIC: Appropriate mood and affect; insight and judgment normal. Assessment/Plan - Plan Plan: 1. Awaiting CT chest. Patient reports that her breathing is "back to normal". Continue to wean O2. Will await results of CT chest and change IV Solu- Medrol to prednisone 40 mg p.o. twice daily. 2. Patient currently max assist and is bedridden. Continue to work with physical therapy. Patient will need rehab upon discharge.
--- NOTE | 2018-10-17 15:40 | CT ---
EXAM DATE: 10/17/2018 3:04 PM EST AGE/SEX: 57 years / Female INDICATIONS: Pulmonary infiltrates, pneumonia. CLINICAL DATA: This is the patient's initial encounter. Patient reports that signs and symptoms have been present for 1 day and indicates a pain score of 7/10. MEDICAL/SURGICAL HISTORY: Carcinoma, breast. Hypertension. Metastatic disease. Mastectomy, bilate ral. RADIATION DOSE: 19.94 CTDI (mGy) COMPARISON: [facility] [place], CTA PULMONARY W CONTRAST W 3D, 10/10/2018. [facility] [place], CT CHEST W CONTRAST, 08/09/2018. . TECHNIQUE: Multiple contiguous axial images were obtained through the chest without contrast. Image s were obtained in suspended respiration using multiple row detector helical technique. Using automa luis exposure control and adjustment of the mA and/or kV according to patient size, radiation dose was kept as low as reasonably achievable to obtain optimal diagnostic quality images. DICOM format imag e data is available electronically for review and comparison. FINDINGS: Cardiomegaly is noted. Scattered atelectatic changes are noted bilaterally. No pulmonary nodule or ma ss is noted. No pulmonary edema is noted. Left subclavian [id number] has its tip in the superior v brendon cava in good position. No mediastinal, hilar or axillary lymphadenopathy is noted. The liver is e nlarged. Degenerative changes and scoliosis of the thoracic spine are noted. CONCLUSION: 1. Scattered atelectatic changes bilaterally. 2. Cardiomegaly. 3. Hepatomegaly. 4. Degenerative changes and scoliosis of the thoracic spine. Electronically signed by: Nikita Wylie MD Board Certified Radiologist 10/17/2018 3:39 PM EST
[2018-10-17] MEDS: Enoxaparin Inj 40 MG/0.4 ML Syringe SQ SCH (20:48)
[2018-10-18] MEDS: MethylPREDNISolone Sod Succinate Inj 125 MG/2 ML Vial IV.PUSH SCH (09:21)
[2018-10-18] MEDS: levETIRAcetam 500 MG Tablet PO SCH ×2 (09:21→20:28)
[2018-10-18] MEDS ORDERED: Potassium Chloride Liq 20 MEQ/15 ML UDC PO ONE (10:42)
--- NOTE | 2018-10-18 11:28 | P.PNFP ---
Subjective Interval history: Patient seen and examined bedside this morning. Patient eating and drinking without difficulty. No nausea/vomiting. Breathing without difficulty. Denies any chest pain/shortness of breath/dizziness. Is feeling better on less oxygen. Continues to work with PT and continues to feel scared of falling. <Cindy Ambrose - 10/18/18 11:28> Results - Labs Result diagrams: 10/17/18 04:05 10/17/18 04:05 <Inocente Gilbert 10/18/18 12:14> - Imaging Impressions Chest CT 10/17/18 00:00 CONCLUSION: 1. Scattered atelectatic changes bilaterally. 2. Cardiomegaly. 3. Hepatomegaly. 4. Degenerative changes and scoliosis of the thoracic spine. <Inocente Gilbert 10/18/18 12:14> Impressions Chest CT 10/17/18 00:00 CONCLUSION: 1. Scattered atelectatic changes bilaterally. 2. Cardiomegaly. 3. Hepatomegaly. 4. Degenerative changes and scoliosis of the thoracic spine. <Cindy Ambrose - 10/18/18 11:28> Physical Exam Vital signs: Vital Signs 10/17/18 16:35 10/17/18 19:00 10/17/18 20:00 Temperature 97.6 F Pulse Rate 70 78 Respiratory Rate 16 Blood Pressure 112/56 L Pulse Oximetry 95 95 10/17/18 20:40 10/17/18 20:54 10/17/18 23:00 Temperature 97.5 F L Pulse Rate 74 66 Respiratory Rate 18 Blood Pressure 109/60 Pulse Oximetry 96 95 10/17/18 23:25 10/18/18 03:00 10/18/18 04:00 Temperature 98.4 F Pulse Rate 71 72 Respiratory Rate 18 Blood Pressure 127/72 Pulse Oximetry 93 L 93 L 10/18/18 04:14 Temperature 98 F Pulse Rate 75 Respiratory Rate 18 Blood Pressure 111/64 Pulse Oximetry 92 L Intake & Output 10/17/18 10/18/18 10/18/18 18:59 06:59 18:59 Intake Total 237 / 237 240 / 240 Output Total 850 / 850 600 / 600 Balance -613 / -613 -360 / -360 Weight 120.4 kg Intake: Oral 237 / 237 240 / 240 Output: Urine 850 / 850 600 / 600 Other: # Voids 1 Date of Last Bowel Movement 10/17/18 10/17/18 # Bowel Movements 1 <Inocente Gilbert - 10/18/18 12:14> Vital Signs 10/17/18 12:07 10/17/18 16:35 10/17/18 19:00 Temperature 98.2 F 97.6 F Pulse Rate 74 70 78 Respiratory Rate 18 16 Blood Pressure 129/72 112/56 L Pulse Oximetry 95 95 10/17/18 20:00 10/17/18 20:40 10/17/18 20:54 Temperature 97.5 F L Pulse Rate 74 Respiratory Rate 18 Blood Pressure 109/60 Pulse Oximetry 95 96 95 10/17/18 23:00 10/17/18 23:25 10/18/18 03:00 Temperature 98.4 F Pulse Rate 66 71 72 Respiratory Rate 18 Blood Pressure 127/72 Pulse Oximetry 93 L 10/18/18 04:00 10/18/18 04:14 Temperature 98 F Pulse Rate 75 Respiratory Rate 18 Blood Pressure 111/64 Pulse Oximetry 93 L 92 L Intake & Output 10/17/18 10/18/18 10/18/18 18:59 06:59 18:59 Intake Total 237 / 237 240 / 240 Output Total 850 / 850 600 / 600 Balance -613 / -613 -360 / -360 Weight 120.4 kg Intake: Oral 237 / 237 240 / 240 Output: Urine 850 / 850 600 / 600 Other: # Voids 1 Date of Last Bowel Movement 10/17/18 10/17/18 # Bowel Movements 1 <Cindy Ambrose - 10/18/18 11:28> Narrative: GENERAL: Well-developed well-nourished. Obese. In no acute distress. Breathing comfortably on 4 L O2 nasal cannula. NECK: No carotid bruits. No JVD. Pain on palpation of neck or axillary area bilaterally. CARDIOVASCULAR: Regular rate and rhythm. No murmur appreciated. Chest wall: Status post right mastectomy. RESPIRATORY: No accessory muscle use. Clear to auscultation. Breath sounds equal bilaterally. MUSCULOSKELETAL: No clubbing or cyanosis. Negative pitting edema. Much improved from prior. NEUROLOGICAL: Awake and alert. Normal speech. <Cindy Ambrose - 10/18/18 11:28> - Urinary Catheter Management Female External Cath placed during this visit: no <Inocente Gilbert 10/18/18 12:14> no <Cindy Ambrose - 10/18/18 11:28> Assessment and Plan - Assessment (1) Shortness of breath Code(s): R06.02 - Shortness of breath Status: Resolved (2) Pneumonitis Code(s): J18.9 - Pneumonia, unspecified organism Status: Acute (3) Metastatic breast cancer Code(s): C50.919 - Malignant neoplasm of unspecified site of unspecified female breast Status: Chronic (4) Essential hypertension Code(s): I10 - Essential (primary) hypertension Status: Chronic <Inocente Gilbert 10/18/18 12:14> (1) Shortness of breath Code(s): R06.02 - Shortness of breath Status: Resolved (2) Pneumonitis Code(s): J18.9 - Pneumonia, unspecified organism Status: Acute (3) Metastatic breast cancer Code(s): C50.919 - Malignant neoplasm of unspecified site of unspecified female breast Status: Chronic (4) Essential hypertension Code(s): I10 - Essential (primary) hypertension Status: Chronic <Cindy Ambrose - 10/18/18 11:25> - Assessment and Plan addendum to above: stopped lasix 10/17 is correct. continue lasix daily is outdated. repeat CT thorax has been done today <Inocente Gilbert 10/18/18 12:14> 57 yo with metastatic breast cancer admitted with: Shortness of breath - resolved CT on 10/10 ; finding suggestive of pneumonitis (ground glass opacities) consistent with chemotherapy side effect Clinically peripheral edema has improved after addition of Lasix. Stopped lasix on 10/17, doing well Echo with grossly normal EF, evaluated by cardiology consult; volume retention and dyspnea may be due to high volumes today. Recommending diuretic therapy for net 2-3 L negative daily. Continue metoprolol. Cardiology signed off. -1-2L fluid balance with improved peripheral edema * Continue O2 via NC, cont to encourage nursing to titrate and wean O2, may need to d/c with O2 tank * Consulted oncology, appreciate assistance * Treat pneumonitis as below * Consulted cardiology, appreciate recs * Continue diuresis for now * Continue beta-cecilia * May have component of EVA and/or obesity hypoventilation syndrome * Monitor I/O; do not want to diurese too aggressively as she does not seem to have CHF or pulmonary edema that caused the SOB * Continue Lasix to 40 mg p.o. daily Pneumonitis Discussed with oncologist Dr. Vanessa, likely this is side effect of her chemotherapy * Continue Solu-medrol 50 mg IV BID -oncology is weaning steroids beginning today, and will likely continue IV steroids times 3-5 days before discharging with p.o. steroids, may need to be off IV steroids for rehab? * Monitor vitals, titrate O2 PRN * Plan to repeat with CT thorax tomorrow * To reassess plan for chemotherapy if patient is allergic to Herceptin Metastatic breast cancer Currently treated with chemotherapy per Dr. 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 I reviewed and agree with the findings presented. I attest that I had a [id number] encounter with the patient on the same day, and personally performed and documented my assessment and findings in the medical record. down to 2L NC today, was able to transition to chair with minor help from one person. she is very happy about this. CT scan with no evidence of malignancy, only scattered atelactatic changes. Wean steroids per oncology. When transition to PO can work towards rehab, perhaps even d/c oxygen soon Replaced K and d/c telemetry today. <Inocente Gilbert - 10/18/18 12:14>
--- NOTE | 2018-10-18 20:04 | P.PNONC ---
Subjective Interval history: The patient is feeling much better. She is almost back to baseline in terms of breathing. Objective Vital Signs/Intake & Output: Vital Signs 10/17/18 20:00 10/17/18 20:40 10/17/18 20:54 Temperature 97.5 F L Pulse Rate 74 Respiratory Rate 18 Blood Pressure 109/60 Pulse Oximetry 95 96 95 10/17/18 23:00 10/17/18 23:25 10/18/18 03:00 Temperature 98.4 F Pulse Rate 66 71 72 Respiratory Rate 18 Blood Pressure 127/72 Pulse Oximetry 93 L 10/18/18 04:00 10/18/18 04:14 10/18/18 09:15 Temperature 98 F 97.5 F L Pulse Rate 75 91 H Respiratory Rate 18 18 Blood Pressure 111/64 121/71 Pulse Oximetry 93 L 92 L 94 L 10/18/18 12:00 10/18/18 15:44 Temperature 99.0 F 97.6 F Pulse Rate 84 78 Respiratory Rate 20 16 Blood Pressure 137/83 122/62 Pulse Oximetry 97 95 Intake & Output 10/18/18 10/18/18 10/19/18 06:59 18:59 06:59 Intake Total 240 / 240 Output Total 600 / 600 Balance -360 / -360 Weight 120.4 kg Intake: Oral 240 / 240 Output: Urine 600 / 600 Other: Date of Last Bowel Movement 10/17/18 10/18/18 Result Diagrams: 10/17/18 04:05 10/17/18 04:05 Medications: Active Medications Generic Name Dose Route Start Last Admin Trade Name Freq PRN Reason Stop Dose Admin Enoxaparin Sodium 40 mg 10/10/18 21:45 10/17/18 20:48 Lovenox Inj SQ 40 mg Q24H MACARIO Administration Levetiracetam 500 mg 10/11/18 09:00 10/18/18 09:21 Keppra PO 500 mg BID MACARIO Administration Metoprolol Succinate 25 mg 10/11/18 09:00 10/18/18 09:21 Toprol Xl PO 25 mg DAILY MACARIO Administration Pantoprazole Sodium 40 mg 10/11/18 09:00 10/18/18 09:21 Protonix PO 40 mg BID MACARIO Administration Sodium Chloride 2 ml 10/11/18 09:00 10/18/18 09:22 Ns Flush IV.FLUSH 2 ml BID MACARIO Administration Objective Remarks: GENERAL: Comfortable and in chair SKIN: Warm and dry. HEAD: Normocephalic. EYES: No scleral icterus. No injection or drainage. NECK: Supple, trachea midline. No JVD or lymphadenopathy. LYMPHATIC: No adenopathy. CARDIOVASCULAR: Regular rate and rhythm without murmurs. RESPIRATORY: Breath sounds equal bilaterally. No accessory muscle use. GASTROINTESTINAL: Abdomen soft, non-tender, nondistended. EXTREMITIES: No cyanosis, or edema. MUSCULOSKELETAL: Adequate muscle tone. NEUROLOGICAL: No change in right arm weakness PSYCHIATRIC: Appropriate mood and affect; insight and judgment normal. Assessment/Plan - Plan Plan: 1. CT scan of the thorax reviewed and the pulmonary infiltrates are about 90% better and almost gone. I believe she has a resolving pneumonitis related to her outpatient treatment. I would recommend beginning prednisone 60 mg a day and tapering over the next 10 days. The IV Solu-Medrol can be discontinued. She will need physical therapy and I would like to see her discharged to rehab with a outpatient taper of p.o. prednisone and to return to my office in about 2 weeks. The above was discussed with Cindy Cummings MD.
[2018-10-18] MEDS: Enoxaparin Inj 40 MG/0.4 ML Syringe SQ SCH ×2 (20:28→21:24)
[2018-10-18] MEDS: predniSONE 20 MG Tablet PO SCH (20:28)
[2018-10-19] MEDS: levETIRAcetam 500 MG Tablet PO SCH ×2 (09:14→20:08)
[2018-10-19] MEDS: predniSONE 20 MG Tablet PO SCH ×2 (09:14→20:08)
--- NOTE | 2018-10-19 10:39 | P.PNFP ---
Subjective Interval history: Still doing better with PT, transitioned to PO steroids. She has no complaints today. feels she is breathing well. Results - Labs Result diagrams: 10/17/18 04:05 10/17/18 04:05 Physical Exam Vital signs: Vital Signs 10/18/18 12:00 10/18/18 15:44 10/18/18 19:45 Temperature 99.0 F 97.6 F Pulse Rate 84 78 Respiratory Rate 20 16 Blood Pressure 137/83 122/62 Pulse Oximetry 97 95 96 10/18/18 20:07 10/18/18 20:34 10/19/18 00:23 Temperature 97.8 F 98.5 F Pulse Rate 71 68 Respiratory Rate 18 18 Blood Pressure 131/69 134/64 Pulse Oximetry 95 94 L 94 L 10/19/18 04:12 10/19/18 08:00 10/19/18 08:34 Temperature 98.4 F 98.0 F Pulse Rate 79 89 Respiratory Rate 18 16 Blood Pressure 126/70 126/72 Pulse Oximetry 94 L 95 96 Intake & Output 10/18/18 10/19/18 10/19/18 18:59 06:59 18:59 Intake Total 837 / 837 240 / 240 Output Total 600 / 600 900 / 900 Balance 237 / 237 -660 / -660 Weight 121 kg Intake: Oral 837 / 837 240 / 240 Output: Urine 600 / 600 900 / 900 Other: # Voids 1 2 Date of Last Bowel Movement 10/18/18 10/18/18 # Bowel Movements 2 - Constitutional no acute distress, morbidly obese - Routine HEENT Exam Head: Present: normocephalic, atraumatic ENT: Present: mucous membranes moist - Routine Neck Exam Present: supple - Routine Respiratory Exam Present: CTA bilaterally, distant breath sounds. Absent: accessory muscle use, wheezes, crackles - Routine Cardiovascular Exam Present: RRR, S1, S2 - Routine Abdominal Exam Present: soft, normoactive bowel sounds - Routine Extremities Exam Absent: cyanosis, clubbing Comments: non pitting mild edema ankles - Urinary Catheter Management Female External Cath placed during this visit: no Assessment and Plan - Assessment (1) Shortness of breath Code(s): R06.02 - Shortness of breath Status: Resolved (2) Pneumonitis Code(s): J18.9 - Pneumonia, unspecified organism Status: Acute (3) Metastatic breast cancer Code(s): C50.919 - Malignant neoplasm of unspecified site of unspecified female breast Status: Chronic (4) Essential hypertension Code(s): I10 - Essential (primary) hypertension Status: Chronic - Assessment and Plan Acute respiratory failure down to 2L O2 now. likely chemo induced pneumonitis +/- OHS, stable, expect she may be on this for some time. weaned to PO steroids Volume overload resolved Breast Ca per oncology, deciding whether can restart herceptin as outpatient after this Brain mets: continue keppra for sz ppx HTN cont metoprolol dvt ppx: lovenox Trying for acceptance at inpatient rehab with goal of getting home and returning to dr lee for outpt treatment
[2018-10-19] MEDS: Enoxaparin Inj 40 MG/0.4 ML Syringe SQ SCH ×2 (20:09→21:39)
[2018-10-20] MEDS: predniSONE 20 MG Tablet PO SCH ×2 (08:13→21:43)
[2018-10-20] MEDS: levETIRAcetam 500 MG Tablet PO SCH ×2 (08:13→21:44)
[2018-10-20] MEDS ORDERED: Loperamide 2 MG Capsule PO PRN (09:02)
--- NOTE | 2018-10-20 09:11 | P.PNFP ---
Subjective Interval history: Patient seen and examined bedside this morning. Patient states her breathing continues to be fine. No chest pain. She has not had physical therapy come to see her yesterday or today. However she is doing her physical therapy exercises. She is excited to get out of the hospital and go home as soon as possible. She has noticed a bump on her right under forearm that seem to appear 2 days ago. She thinks it has been getting bigger. She has no feeling in the right arm so she cannot tell if it is painful. No fever/chills. <Cindy Ambrose - 10/20/18 09:10> Results - Labs Result diagrams: 10/20/18 10:43 10/20/18 10:43 <Inocente Gilbert - 10/20/18 14:43> Abnormal lab results 10/20/18 10/20/18 Range/Units 10:43 10:43 RBC 3.67 L (4.00-5.30) mil/mm3 Neut % (Auto) 85.8 H (16.0-70.0) % Neut # (Auto) 8.0 H (1.8-7.7) th/mm3 Lymph # (Auto) 0.9 L (1.0-4.8) th/mm3 Seg Neuts % (Manual) 80 H (16-70) % Band Neuts % (Manual) 7 H (0-6) % Lymphocytes % (Manual) 8 L (9-44) % Myelocytes % (Man) 1 H (0-0) % Abs Neuts (Manual) 8.2 H (1.8-7.7) th/mm3 Sodium 134 L (136-145) meq/L Chloride 91 L (98-107) meq/L Carbon Dioxide 33.4 H (21.0-32.0) meq/L Estimated GFR 87 L (>89) mL/min Random Glucose 359 H (74-106) mg/dL AST 12 L (15-37) U/L Albumin 2.8 L (3.4-5.0) g/dL Short CBC 10/20/18 Range/Units 10:43 WBC 9.3 (4.0-11.0) th/mm3 Hgb 12.3 (11.6-15.3) gm/dL Hct 36.3 (35.0-46.0) % Plt Count 220 (150-450) th/mm3 BMP 10/20/18 10:43 Sodium 134 L Potassium 3.9 Chloride 91 L Carbon Dioxide 33.4 H BUN 18 Creatinine 0.69 Calcium 8.8 Liver Function 10/20/18 Range/Units 10:43 Total Bilirubin 0.5 (0.2-1.0) mg/dL AST 12 L (15-37) U/L ALT 37 (10-53) U/L Alkaline Phosphatase 79 (45-117) U/L Albumin 2.8 L (3.4-5.0) g/dL <Inocente Gilbert Chase - 10/20/18 14:43> Physical Exam Vital signs: Vital Signs 10/19/18 16:00 10/19/18 20:06 10/19/18 23:53 Temperature 98 F 98.2 F 98.1 F Pulse Rate 74 79 68 Respiratory Rate 20 21 14 Blood Pressure 129/69 116/65 127/70 Pulse Oximetry 94 L 97 95 10/20/18 04:52 10/20/18 08:00 10/20/18 08:11 Temperature 98 F 98.0 F Pulse Rate 75 85 Respiratory Rate 14 20 Blood Pressure 121/62 135/43 L Pulse Oximetry 94 L 98 97 10/20/18 12:00 Temperature Pulse Rate 77 Respiratory Rate 18 Blood Pressure 108/67 Pulse Oximetry Intake & Output 10/19/18 10/20/18 10/20/18 18:59 06:59 18:59 Intake Total 240 / 240 Output Total 2800 / 2800 Balance -2800 / -2800 240 / 240 Weight 120.5 kg Intake: Oral 240 / 240 Output: Urine 2800 / 2800 Other: # Voids 2 Date of Last Bowel Movement 10/19/18 10/20/18 # Bowel Movements 1 <Inocente Gilbert Chase - 10/20/18 14:43> Vital Signs 10/19/18 12:00 10/19/18 16:00 10/19/18 20:06 Temperature 98 F 98.2 F Pulse Rate 76 74 79 Respiratory Rate 20 20 21 Blood Pressure 140/71 129/69 116/65 Pulse Oximetry 97 94 L 97 10/19/18 23:53 10/20/18 04:52 10/20/18 08:11 Temperature 98.1 F 98 F 98.0 F Pulse Rate 68 75 85 Respiratory Rate 14 14 20 Blood Pressure 127/70 121/62 135/43 L Pulse Oximetry 95 94 L 97 Intake & Output 10/19/18 10/20/18 10/20/18 18:59 06:59 18:59 Intake Total 240 / 240 Output Total 2800 / 2800 Balance -2800 / -2800 240 / 240 Weight 120.5 kg Intake: Oral 240 / 240 Output: Urine 2800 / 2800 Other: # Voids 2 Date of Last Bowel Movement 10/19/18 # Bowel Movements 1 <Cindy Ambrose - 10/20/18 09:10> Narrative: GENERAL: Well-developed well-nourished. Obese. In no acute distress. Breathing comfortably on 2 L O2 nasal cannula. Skin: 3 cm x 3 cm erythematous raised effusion on right forearm above the wrist. , appears to be subcutaneous. No nodule on palpation. No tenderness on palpation, although this is limited by her sensory deficit. Increased warmth of area. No extension into hand or wrist area. NECK: No carotid bruits. No JVD. Pain on palpation of neck or axillary area bilaterally. CARDIOVASCULAR: Regular rate and rhythm. No murmur appreciated. Chest wall: Status post right mastectomy. Slight erythema in right axillary area. No tenderness on palpation. No warmth. RESPIRATORY: No accessory muscle use. Clear to auscultation. Breath sounds equal bilaterally. MUSCULOSKELETAL: No clubbing or cyanosis. Negative pitting edema. Much improved from prior. NEUROLOGICAL: Awake and alert. Normal speech. <Cindy Ambrose - 10/20/18 09:10> - Urinary Catheter Management Female External Cath placed during this visit: no <Inocente Gilbert - 10/20/18 14:43> no <Cindy Ambrose - 10/20/18 09:10> Assessment and Plan - Assessment (1) Shortness of breath Code(s): R06.02 - Shortness of breath Status: Resolved (2) Pneumonitis Code(s): J18.9 - Pneumonia, unspecified organism Status: Acute (3) Metastatic breast cancer Code(s): C50.919 - Malignant neoplasm of unspecified site of unspecified female breast Status: Chronic (4) Essential hypertension Code(s): I10 - Essential (primary) hypertension Status: Chronic (5) Cellulitis Code(s): L03.90 - Cellulitis, unspecified Status: Acute (6) Diarrhea Code(s): R19.7 - Diarrhea, unspecified Status: Acute <Inocente Gilbert - 10/20/18 14:43> (1) Shortness of breath Code(s): R06.02 - Shortness of breath Status: Resolved (2) Pneumonitis Code(s): J18.9 - Pneumonia, unspecified organism Status: Acute (3) Metastatic breast cancer Code(s): C50.919 - Malignant neoplasm of unspecified site of unspecified female breast Status: Chronic (4) Essential hypertension Code(s): I10 - Essential (primary) hypertension Status: Chronic (5) Cellulitis Code(s): L03.90 - Cellulitis, unspecified Status: Acute (6) Diarrhea Code(s): R19.7 - Diarrhea, unspecified Status: Acute <Cindy Ambrose - 10/20/18 08:53> - Assessment and Plan Acute respiratory failure down to 2L O2 now. likely chemo induced pneumonitis +/- OHS, stable, expect she may be on this for some time. weaned to PO steroids, will d/c on PO steroid regimen per rec Volume overload resolved, diuretics have been stopped and there have been no increased symptoms Breast Ca per oncology, deciding whether can restart herceptin as outpatient after this Cleared by oncology, will follow-up as outpatient Brain mets: continue keppra for sz ppx HTN BPs normal cont metoprolol Diarrhea Chronic diarrhea over hospitalization, not improving Follow-up C. difficile testing BRAT diet, avoid caffeine and dairy Add probiotics, and immodium PRN f/u stool cx Rash Cellulitis vs. contact dermatitis vs. insect bite - Area around rash marked - appears to be superficial with no hand involvement, no need for imaging at this time - f/u CBC - Add Doxy 100mg BID x 10 days, will f/u improvement in 24hrs dvt ppx: lovenox Trying for acceptance at inpatient rehab with goal of getting home and returning to dr lee for outpt treatment <Cindy Ambrose - 10/20/18 09:10> - Attending Attestation The exam, history, and the medical decision-making described in the above note were completed with the assistance of the resident physician. I reviewed and agree with the findings presented. I attest that I had a [id number] encounter with the patient on the same day, and personally performed and documented my assessment and findings in the medical record. doing better with therapy, in good spirits. breating well Early cellulitis starting on her left arm: start doxy loose stools increasing some, will start diarrhea w/u Waiting insurance acceptance for inpt rehab on Sunday. <Inocente Gilbert - 10/20/18 14:43>
[2018-10-20 11:53] LABS: Baso % (Auto) 0.1 % (0.0-2.0); Hematocrit 36.3 % (35.0-46.0); Hemoglobin 12.3 gm/dL (11.6-15.3); Lymph # (Auto) 0.9 th/mm3 (1.0-4.8); Lymph % (Auto) 9.6 % (9.0-44.0); Mean Corpuscular HGB Conc 33.8 % (32.0-36.0); Mean Corpuscular Hemoglobin 33.4 pg (27.0-34.0); Mean Corpuscular Volume 98.8 fL (80.0-100.0); Mean Platelet Volume 8.7 fL (7.0-11.0); Mono # (Auto) 0.4 th/mm3 (0.0-0.9); Mono % (Auto) 4.5 % (0.0-8.0); Neut % (Auto) 85.8 % (16.0-70.0); Platelet Count 220 th/mm3 (150-450); Red Blood Count 3.67 mil/mm3 (4.00-5.30); Red Cell Distribution Width 16.9 % (11.6-17.2); White Blood Count 9.3 th/mm3 (4.0-11.0)
[2018-10-20 12:13] LABS: Albumin 2.8 g/dL (3.4-5.0); Anion Gap 10 meq/L (5-15); Aspartate Aminotransferase 12 U/L (15-37); Blood Urea Nitrogen 18 mg/dL (7-18); Calcium 8.8 mg/dL (8.5-10.1); Carbon Dioxide 33.4 meq/L (21.0-32.0); Chloride 91 meq/L (98-107); Glomerular Filtration Rate 87 mL/min (>89); Glucose,Random 359 mg/dL (74-106); Potassium 3.9 meq/L (3.5-5.1); Sodium 134 meq/L (136-145)
[2018-10-20 12:14] LABS: Alanine Aminotransferase 37 U/L (10-53)
[2018-10-20 12:16] LABS: Alkaline Phosphatase 79 U/L (45-117); Total Protein 6.4 g/dL (6.4-8.2)
[2018-10-20 12:27] LABS: Lymphocytes 8 % (9-44); Monocytes 4 % (0-8); Myelocytes 1 % (0-0); Platelet Estimate Normal (Normal); Platelet Morphology Normal (Normal)
[2018-10-20] MEDS: Enoxaparin Inj 40 MG/0.4 ML Syringe SQ SCH (21:43)
[2018-10-21] MEDS: levETIRAcetam 500 MG Tablet PO SCH ×2 (08:53→21:36)
[2018-10-21] MEDS: predniSONE 20 MG Tablet PO SCH ×2 (08:53→21:36)
--- NOTE | 2018-10-21 11:07 | P.PNFP ---
Subjective Interval history: I saw Ms Olvera last a week ago. She [facility] requiring bip[facility] at times. Today her breathing is great. She has no need for much oxygen and is only on 1.[address] chest is much better now. Changes also include a sling for her right arm that has been "" per pt for more than a year with "no feeling and no ability to move". She had an ultrasound when I was in the room which did not show any clots or drainable abscesses. Otherwise, she is eager to get to [facility] and build her strength. We discussed [facility] and she is hoping to be able to go there today once her Insurance approves her stay. Results - Labs Result diagrams: 10/20/18 10:43 10/20/18 10:43 Abnormal lab results 10/20/18 10/20/18 Range/Units 10:43 10:43 RBC 3.67 L (4.00-5.30) mil/mm3 Neut % (Auto) 85.8 H (16.0-70.0) % Neut # (Auto) 8.0 H (1.8-7.7) th/mm3 Lymph # (Auto) 0.9 L (1.0-4.8) th/mm3 Seg Neuts % (Manual) 80 H (16-70) % Band Neuts % (Manual) 7 H (0-6) % Lymphocytes % (Manual) 8 L (9-44) % Myelocytes % (Man) 1 H (0-0) % Abs Neuts (Manual) 8.2 H (1.8-7.7) th/mm3 Sodium 134 L (136-145) meq/L Chloride 91 L (98-107) meq/L Carbon Dioxide 33.4 H (21.0-32.0) meq/L Estimated GFR 87 L (>89) mL/min Random Glucose 359 H (74-106) mg/dL AST 12 L (15-37) U/L Albumin 2.8 L (3.4-5.0) g/dL Short CBC 10/20/18 Range/Units 10:43 WBC 9.3 (4.0-11.0) th/mm3 Hgb 12.3 (11.6-15.3) gm/dL Hct 36.3 (35.0-46.0) % Plt Count 220 (150-450) th/mm3 BMP 10/20/18 10:43 Sodium 134 L Potassium 3.9 Chloride 91 L Carbon Dioxide 33.4 H BUN 18 Creatinine 0.69 Calcium 8.8 Liver Function 10/20/18 Range/Units 10:43 Total Bilirubin 0.5 (0.2-1.0) mg/dL AST 12 L (15-37) U/L ALT 37 (10-53) U/L Alkaline Phosphatase 79 (45-117) U/L Albumin 2.8 L (3.4-5.0) g/dL Physical Exam Vital signs: Vital Signs 10/20/18 12:00 10/20/18 16:00 10/20/18 20:00 Temperature 97.4 F L Pulse Rate 77 85 Respiratory Rate 18 20 16 Blood Pressure 108/67 109/62 Pulse Oximetry 97 10/20/18 23:48 10/21/18 04:08 10/21/18 08:43 Temperature 97.7 F 98 F 97.8 F Pulse Rate 67 76 93 H Respiratory Rate 18 16 18 Blood Pressure 118/63 118/62 124/74 Pulse Oximetry 96 94 L 92 L Intake & Output 10/20/18 10/21/18 10/21/18 18:59 06:59 18:59 Output Total 2700 / 2700 425 / 425 Balance -2700 / -2700 -425 / -425 Weight 121 kg Output: Urine 2700 / 2700 400 / 400 Stool 25 / 25 Other: # Voids 1 Date of Last Bowel Movement 10/20/18 10/21/18 10/21/18 # Bowel Movements 1 - Constitutional no acute distress, obese, cooperative - Routine HEENT Exam Head: Present: normocephalic, atraumatic. Absent: facial swelling Eye: Present: EOMI, PERRL. Absent: proptosis ENT: Present: external ear normal. Absent: septal deviation - Routine Neck Exam Present: supple, trachea midline - Routine Respiratory Exam Absent: accessory muscle use, patient mechanically ventilated, respiratory distress - Routine Cardiovascular Exam Present: RRR - Routine Abdominal Exam Present: soft. Absent: tenderness - Routine Extremities Exam Absent: clubbing, edema - Routine Neurological Exam Present: alert, oriented X3. Absent: moving all extremities (right arm does not move) - Routine Psychiatric Exam Present: normal affect, normal thought process, cooperative, good insight - Urinary Catheter Management Female External Cath placed during this visit: no Assessment and Plan - Assessment (1) Metastatic breast cancer Code(s): C50.919 - Malignant neoplasm of unspecified site of unspecified female breast Status: Chronic (2) Essential hypertension Code(s): I10 - Essential (primary) hypertension Status: Chronic (3) Cellulitis Code(s): L03.90 - Cellulitis, unspecified Status: Acute (4) Diarrhea Code(s): R19.7 - Diarrhea, unspecified Status: Acute (5) Pneumonitis Code(s): J18.9 - Pneumonia, unspecified organism Status: Acute - Assessment and Plan Breast Ca per oncology, deciding whether can restart herceptin as outpatient after this Cleared by oncology, will follow-up as outpatient Brain mets: continue keppra for sz ppx HTN BPs normal cont metoprolol Diarrhea Chronic diarrhea over hospitalization, not improving Follow-up C. difficile testing BRAT diet, avoid caffeine and dairy Add probiotics, and immodium PRN f/u stool cx Rash Cellulitis vs. contact dermatitis vs. insect bite - Area around rash marked - appears to be superficial with no hand involvement, no need for imaging at this time - f/u CBC - Add Doxy 100mg BID x 10 days, will f/u improvement in 24hrs had ultrasound today, no drainable abscess Acute respiratory failure down to 1.5L O2 now. likely chemo induced pneumonitis +/- OHS, stable, expect she may be on this for some time. weaned to PO steroids, will d/c on PO steroid regimen per rec. resolved. dvt ppx: lovenox Trying for acceptance at inpatient rehab with goal of getting home and returning to dr lee for outpt treatment. hopefully she can get Insurance acceptance today (3) Cellulitis Qualifiers: Site of cellulitis: extremity Site of cellulitis of extremity: upper extremity Laterality: right Qualified Code(s): L03.113 - Cellulitis of right upper limb (4) Diarrhea Qualifiers: Diarrhea type: unspecified type Qualified Code(s): R19.7 - Diarrhea, unspecified
[2018-10-21] MEDS: Enoxaparin Inj 40 MG/0.4 ML Syringe SQ SCH (21:37)
--- NOTE | 2018-10-22 08:30 | P.PNFP ---
Subjective Interval history: Patient seen and examined this morning. No acute events overnight. Patient thinks she is continuing to progress with PT and is very impressed that she can stand up on her feet yesterday on her own and take a step. She is very anxious to get out of the hospital and to go to rehab. She is eating and drink without difficulty. She continues to have 5 loose bowel movements per day. She has been taking the probiotics. Denies any chest pain/shortness of breath/ dizziness. No fever/chills. No calf tenderness. Results - Labs Result diagrams: 10/20/18 10:43 10/20/18 10:43 Physical Exam Vital signs: Vital Signs 10/21/18 08:43 10/21/18 11:04 10/21/18 11:59 Temperature 97.8 F 98.7 F Pulse Rate 93 H 81 Respiratory Rate 18 16 Blood Pressure 124/74 111/68 Pulse Oximetry 92 L 94 L 97 10/21/18 15:37 10/21/18 20:23 10/21/18 23:24 Temperature 98.2 F 97.8 F 97.8 F Pulse Rate 81 75 64 Respiratory Rate 16 18 18 Blood Pressure 115/64 111/67 133/74 Pulse Oximetry 92 L 96 97 10/22/18 03:00 10/22/18 04:00 Temperature 98 F Pulse Rate 75 Respiratory Rate 18 16 Blood Pressure 125/68 Pulse Oximetry 96 Intake & Output 10/21/18 10/22/18 10/22/18 18:59 06:59 18:59 Intake Total 720 / 720 Output Total 700 / 700 Balance 720 / 720 -700 / -700 Weight 119.3 kg Intake: Oral 720 / 720 Output: Urine 700 / 700 Other: # Voids 3 Date of Last Bowel Movement 10/21/18 10/21/18 # Bowel Movements 2 1 Narrative: GENERAL: Well-developed well-nourished. Obese. In no acute distress. Breathing comfortably on 2 L O2 nasal cannula. Nasal cannula removed bedside and O2 sat stable at 94-95%. Nasal cannula removed from patient. Skin: 3 cm x 3 cm erythematous raised effusion on right forearm above the wrist. , appears to be subcutaneous. No nodule on palpation. No tenderness on palpation, although this is limited by her sensory deficit. Increased warmth of area. Erythematous area has moved slightly outside of the [place] from day # 1. No market expansion. NECK: No carotid bruits. No JVD. Pain on palpation of neck or axillary area bilaterally. CARDIOVASCULAR: Regular rate and rhythm. No murmur appreciated. Chest wall: Status post right mastectomy. Slight erythema in right axillary area. No tenderness on palpation. No warmth. RESPIRATORY: No accessory muscle use. Clear to auscultation. Breath sounds equal bilaterally. MUSCULOSKELETAL: No clubbing or cyanosis. Negative pitting edema. Much improved from prior. NEUROLOGICAL: Awake and alert. Normal speech. - Urinary Catheter Management Female External Cath placed during this visit: no Assessment and Plan - Assessment (1) Metastatic breast cancer Code(s): C50.919 - Malignant neoplasm of unspecified site of unspecified female breast Status: Chronic (2) Essential hypertension Code(s): I10 - Essential (primary) hypertension Status: Chronic (3) Cellulitis Code(s): L03.90 - Cellulitis, unspecified Status: Acute (4) Diarrhea Code(s): R19.7 - Diarrhea, unspecified Status: Acute (5) Pneumonitis Code(s): J18.9 - Pneumonia, unspecified organism Status: Acute - Assessment and Plan Breast Ca per oncology, deciding whether can restart herceptin as outpatient after this Cleared by oncology, will follow-up as outpatient Brain mets: continue keppra for sz ppx HTN BPs normal cont metoprolol Diarrhea Chronic diarrhea over hospitalization, not improving C. difficile testing negative BRAT diet, avoid caffeine and dairy Add probiotics, and immodium scheduled f/u stool cx Rash Cellulitis vs. contact dermatitis vs. insect bite vs. bruising - Area around rash marked from day #1, now day #3 with little progression w/ addition of abx - appears to be superficial with no hand involvement, U/S revealed no cyst or abscess or mass - WBC stable - Cont Doxy 100mg BID x 5-10 days (10/20 - ) Acute respiratory failure O2 now removed. likely chemo induced pneumonitis +/- OHS, stable, expect she may be on this for some time. weaned to PO steroids, will d/c on PO steroid regimen per rec. resolved. dvt ppx: lovenox Trying for acceptance at inpatient rehab with goal of getting home and returning to dr lee for outpt treatment. hopefully she can get Insurance acceptance today (3) Cellulitis Qualifiers: Site of cellulitis: extremity Site of cellulitis of extremity: upper extremity Laterality: right Qualified Code(s): L03.113 - Cellulitis of right upper limb (4) Diarrhea Qualifiers: Diarrhea type: unspecified type Qualified Code(s): R19.7 - Diarrhea, unspecified
--- NOTE | 2018-10-22 08:42 | US ---
EXAM DATE: 10/21/2018 10:27 AM EST AGE/SEX: 57 years / Female INDICATIONS: Redness and swelling of the right arm. CLINICAL DATA: This is the patient's initial encounter. Patient reports that signs and symptoms have been present for 4 - 6 days and indicates a pain score of 0/10. MEDICAL/SURGICAL HISTORY: Carcinoma, breast. Paralysis of right arm. Mastectomy, right. COMPARISON: No prior exams available for comparison. FINDINGS: Ultrasound imaging was performed in the area of clinical interest in the distal lateral right forearm . In this region no fluid collection or abscess is identified. No solid mass is identified. CONCLUSION: No abnormality is identified in the distal lateral right forearm. Electronically signed by: Hoang Hall MD Board Certified Radiologist 10/22/2018 8:41 AM EST
[2018-10-22] MEDS: predniSONE 20 MG Tablet PO SCH (09:59)
[2018-10-22] MEDS: Loperamide 2 MG Capsule PO SCH ×3 (10:00→17:28)
[2018-10-22] MEDS: levETIRAcetam 500 MG Tablet PO SCH (10:00)
--- NOTE | 2018-10-22 14:15 | P.DCO ---
- Physical Therapy Order: Evaluate and treat, Improve ambulation - Occupational Therapy Order: Evaluate and treat, Improve ADL, Gross motor coordination - Home Health Nursing Order: Medical education, CHF education - Home Health Aide Order: To assist in: Bathing and personal care - Booster Plant Operator Order: To evaluate: Living conditions/environment, Support services Order: To provide: Long range planning - Case Management Consult Case Management Consult-Home Health: Yes - Certification I have seen patient Jasmin Olvera on 10/22/18. My clinical findings support the need for the requested home health care services because: Limited mobility due to disease progression, Patient has SOB, Deconditioned with increased weakness, Medication compliance is questionable, Limited ability to care for self, Need for psychosocial assistance, Impaired cognition/judgement , High risk of falls, Infection with risk of complications, Injectable medication education/administration I certify that my clinical findings support that this patient is homebound because: Impaired cognitive ability/safety, Unsteady gait/balance, Unsafe to leave home unassisted, Non-ambulatory: confined to bed or chair, Unable to use public transportation
[2018-10-22] MEDS ORDERED: Heparin Central Flush 100 UNIT/ML 5 ML Vial IV.FLUSH PRN ×2 (15:54)
[2018-10-23 17:47] LABS: Chloride, Feces 29 mmol/L (See Comment); Osmolality, Feces 485 mOsm/kg (See Comment); Potassium, Feces 109 mmol/L; Sodium, Feces 16 mmol/L
== END 2018-10-22 17:54 | disposition home health service (06) | DRG 205 ==
LOC: NEPC 17:39 → NEDA 20:57 → HIMC 23:25 → HCIN 10-13 22:51
PROVIDERS: ADMIT Family Medicine; ATTEND Family Medicine
CPT/HCPCS: 36600; 70553; 71010; 71045; 71250; 71275; 76999; 80048; 80053; 82438; 82550; 82805; 83520; 83630; 83735; 83880; 84100; 84302; 84376; 84484; 84999; 85025; 85610; 85730; 87205; 87493; 87641; 90774; 90784; 93005; 93306; 93970; 94002; 94656; 96374; 97110; 97116; 97162; 97167; 97530; 97535; 99285; A9585; C8952; J1642; J1650; J1940; J2060; J2930; J3475; J7506; J7512; J8540; Q9967